=== PATIENT | male | born 1950 | race Caucasian/White ===

== ENCOUNTER 2019-07-08 16:35 | Inpatient (IN) | payer MEDICARE, SELFPAY ==
[2019-07-08 16:37] VITALS: PULSE 65; RESP 18; TEMP 36.9; O2SAT 95; BMI 22.4
--- NOTE | 2019-07-08 17:30 | CTR_ITS ---
PROCEDURE INFORMATION: Exam: CT Abdomen And Pelvis With Contrast Exam date and time: 07/08/2019 5:54 PM Age: 68 years old Clinical indication: Bloating and nausea and vomiting; Abdominal pain; Generalized; Additional info: Upper abdominal pain TECHNIQUE: Imaging protocol: Computed tomography of the abdomen and pelvis with intravenous contrast. Total DLP: 5338.96 mGy-cm Radiation optimization: All CT scans at this facility use at least one of these dose optimization techniques: automated exposure control; mA and/or kV adjustment per patient size (includes targeted exams where dose is matched to clinical indication); or iterative reconstruction. Contrast material: OMNI 300; Contrast volume: 95 ml; Contrast route: IV; COMPARISON: No relevant prior studies available. FINDINGS: Lungs: Nonspecific bibasilar ground-glass opacity is present, consistent with atelectasis, edema, or early pneumonia. Mediastinum: A small hiatal hernia is present. Liver: There is a diffuse decrease in hepatic parenchymal density, consistent with fatty infiltration. Gallbladder and bile ducts: Normal. No calcified stones. No ductal dilation. Pancreas: There is moderate peripancreatic inflammatory stranding and fluid, consistent with moderate acute pancreatitis. There is abundant peripancreatic fluid in edema but no localized fluid collection or pseudocyst. No evidence of pancreatic necrosis. Spleen: Normal. No splenomegaly. Adrenals: Normal. No mass. Kidneys and ureters: There is a 5.3 cm simple cyst in the left kidney. There are multiple renal hypodensities that cannot be further characterized on the current examination. There is no evidence of hydronephrosis. There is no evidence of renal calcifications. Stomach and bowel: Unremarkable. No obstruction. No mucosal thickening. Appendix: A normal appendix is identified. Intraperitoneal space: Unremarkable. No free air. No significant fluid collection. Vasculature: There are numerous benign phleboliths in the pelvis. Lymph nodes: Unremarkable.No enlarged lymph nodes. Bladder: There is nonspecific bladder wall thickening. This may be related to incomplete distention. Reproductive: The prostate demonstrates moderate nonspecific enlargement. The seminal vesicles are normal. Bones/joints: There are moderate degenerative changes in the spine. There is disc space narrowing with a vacuum disc at L5-S1. Soft tissues: There is a fat-containing umbilical hernia. CT/CT abdomen pelvis w con* [id number] IMPRESSION: 1. Nonspecific bibasilar ground-glass opacity is present, consistent with atelectasis, edema, or early pneumonia. 2. There is moderate peripancreatic inflammatory stranding and fluid, consistent with moderate acute pancreatitis. No pseudocyst. 3. There is a 5.3 cm simple cyst left kidney. No follow-up is necessary. COMMENTS: Consistent with the [employer]'s Incidental Findings Committee white paper (J Am Rita Radiol 2018): Any incidental cystic renal lesion classified in this report as too small to characterize or simple appearing is likely a benign cyst. No follow-up imaging is recommended for these lesions per consensus recommendations based on imaging criteria. Radiation Dose CTDIVOL = (mGy): DLP = 5338.96 (mGy-cm)
[2019-07-08 17:36] LABS: Basophils # 0.1 10^3/uL (0.0-0.1); Basophils % 0.3 %; Hematocrit 47.6 % (42.0-52.0); Hemoglobin 16.6 g/dL (11.7-16.6); Lymphocytes # 0.7 10^3/uL (0.8-4.8); Lymphocytes % 3.5 %; Mean Corpuscular HGB Conc 34.9 g/dL (30.0-36.0); Mean Corpuscular Hemoglobin 34.7 pg (28.0-34.0); Mean Corpuscular Volume 99.6 fL (80-94); Mean Platelet Volume 9.9 fL (7.4-10.4); Monocytes # 1.9 10^3/uL (0.2-0.9); Monocytes % 10.2 %; Neutrophils # 15.9 10^3/uL (1.8-7.7); Neutrophils % 85.4 %; Nucleated Red Blood Cells % 0 %; Platelet Count 214 10^3/cmm (130-400); Red Blood Count 4.78 10^6/uL (4.1-5.3); Red Cell Distribution Width 14.2 % (12.1-15.1); White Blood Count 18.6 10^3/uL (4.0-10.0)
--- NOTE | 2019-07-08 17:38 | W.ED.ABDPA2 ---
Documented by User: HARPER Aquino 07/08/19 20:45 HPI - Abdominal Pain General: Chief Complaint: Abdominal Pain Stated Complaint: abd pain/ back pain Time Seen by Provider: 07/08/19 17:04 Source: patient Mode of arrival: ambulatory Limitations: no limitations History of Present Illness: HPI narrative: Patient is a 68-year-old male who presents to ED today with complaints of upper abdominal pain. Patient tells me he has had intermittent chronic abdominal pains over the past several years but nothing has been this severe. He reports his pain is accompanied by nausea and dry heaving. He states pain seems to radiate into his back however also suffers from chronic back pain so is not sure if the abdominal pain is just exacerbating his chronic back pain. Patient reports normal bowel movements. Reports urinating normally. He has not been running fevers. Patient denies marijuana use. He does report chronic daily alcohol use and reports he normally consumes a pint of alcohol daily. MD elicited complaint: abdominal pain Pertinent past history: none Onset (ago): hour(s) Pain Consistency: constant Location: Epigastric and LUQ Severity: moderate Quality: aching and sharp Radiation: back Migration to: no migration Exacerbating factors: eating Relieving factors: nothing Associated Symptoms: Reports no associated symptoms, bloating and nausea; Denies change in bowel habits, change in stool character, chills, coffee ground emesis, diarrhea, dysuria, fever(s), heartburn, hematochezia, hematemesis, syncope and vomiting Review of Systems Const: Denies: fever, chills, body aches, change in appetite, change in weight, fatigue or malaise Eyes: Denies: change in vision or blurry vision ENMT: Denies: throat pain, enlarged tonsils or painful swallowing Card: Denies: chest pain, palpitations, irregular heart rhythm, edema, swelling of feet/ankles, lightheadedness, syncope, pre-syncope or shortness of breath when lying down Resp: Denies: shortness of breath, productive cough, coughing up blood or chest congestion GI: Reports: abdominal pain, nausea and bloating; Denies: vomiting, vomiting blood, coffee grounds in vomit, heartburn/indigestion, diarrhea, change in bowel habits, change in stool character, blood in stool, white/light colored stool or fatty stool : Denies: flank pain, difficulty urinating, painful urination, urinary frequency or urinary urgency Musc: Reports: back pain (chronic ); Denies: neck pain, extremity pain, extremity swelling, joint pain or joint swelling Skin/Breast: Denies: rash Neuro: Denies: headache, numbness in extremities, weakness in extremities or changes in sensation PFSH ED PFSH: Medical History Alcohol abuse Bipolar 1 disorder Insomnia Smoker Surgical History No pertinent past surgical history Family History (Updated 07/08/19 @ 20:16 by John De Jesus MD) Denies family history of Diabetes Clotting disorder Dementia Chronic kidney disease (CKD) Social History (Updated 07/08/19 @ 20:17 by John De Jesus MD) Smoking and tobacco status: current every day smoker cigarettes Packs smoked per day: 3 Years cigarettes smoked: 45 Alcohol intake: current Alcohol use comment: 1 pint of whiskey every day Substance/Drug Use: never Household members: spouse Housing: House Marital status: Current occupation: On disability because of lower back pain and scoliosis Physical Exam Const: COMMON NORMALS: no apparent distress, average body habitus, oriented x3, no limitations, healthy appearing, alert and well nourished Chest: COMMONS NORMALS: inspection of chest normal and palpation of chest normal Resp: COMMON NORMALS: normal respiratory effort and clear to auscultation bilaterally AUSCULTATION: clear to auscultation bilaterally Cardio: COMMON NORMALS: regular rate and regular rhythm RATE: regular rate RHYTHM: regular rhythm GI: COMMON NORMALS: normal to inspection, nondistended, normoactive bowel sounds, soft to palpation, no hepatosplenomegaly and no masses PALPATION: Yes soft, Yes tender (epigastric ) Details: LUQ and Yes no hepatosplenomegaly : COMMON NORMALS: Yes no CVA tenderness BLADDER/KIDNEY EXAM: Yes no CVA tenderness Back/Pelvis: COMMON NORMALS: no CVA tenderness OTHER: TTP mid thoracic and upper lumbar spine-pt states this is chronic Extremity: COMMON NORMALS: normal to inspection Neuro: COMMON NORMALS: oriented x3 SENSORIUM/ORIENTATION: Yes alert Skin: COMMON NORMALS: no rashes or lesions noted GENERAL SKIN EXAM: no rashes or lesions noted Course Vital Signs: Vital signs: Vital Signs Temperature 98.4 F 07/08/19 16:37 Pulse Rate 70 07/08/19 21:28 Respiratory Rate 18 07/08/19 21:28 Blood Pressure 209/95 07/08/19 21:07 Pulse Oximetry 95 07/08/19 21:28 MDM - Abdominal Pain MDM Narrative: Medical decision making narrative: Patient with acute pancreatitis with a lipase of 2280. His pain and nausea has not been controlled here with multiple doses of IV narcotic pain medications. Patient is an every day drinker and if he goes home with instructions not to drink alcohol I fear he may have DT symptoms. In addition patient needs more adequate pain control than what could be provided at home. Spoke to Dr. Garcia who will also evaluate patient and speak to hospitalist for admission. Lab Data: Labs: Lab Results 07/08/19 07/08/19 07/08/19 Range/Units 17:23 17:23 17:23 WBC 18.6 H (4.0-10.0) 10^3/ uL RBC 4.78 (4.1-5.3) 10^6/u L Hgb 16.6 (11.7-16.6) g/dL Hct 47.6 (42.0-52.0) % MCV 99.6 H (80-94) fL MCH 34.7 H (28.0-34.0) pg MCHC 34.9 (30.0-36.0) g/dL RDW 14.2 (12.1-15.1) % Plt Count 214 (130-400) 10^3/c mm MPV 9.9 (7.4-10.4) fL Neut % (Auto) 85.4 % Lymph % (Auto) 3.5 % [place] % (Auto) 10.2 % Eos % (Auto) 0.0 % Baso % (Auto) 0.3 % Neut # (Auto) 15.9 H (1.8-7.7) 10^3/u L Lymph # (Auto) 0.7 L (0.8-4.8) 10^3/u L [place] # (Auto) 1.9 H (0.2-0.9) 10^3/u L Eos # (Auto) 0.0 (0.0-0.8) 10^3/u L Baso # (Auto) 0.1 (0.0-0.1) 10^3/u L Nucleated RBC % (a uto) 0 % Nucleated RBCs # 0.0 /100WBC Sodium 138 (136-145) mmol/L Potassium 4.2 (3.5-5.1) mmol/L Chloride 98 (98-107) mmol/L Carbon Dioxide 22 (22-29) mmol/L Anion Gap 22.2 H (5-19) BUN 17 (8-23) mg/dL Creatinine 0.7 (0.7-1.2) mg/dL GFR Calculation 112.8 (90-130) mL/min Glucose 104 (65-115) mg/dL Calculated Osmolal ity 283 L (285-295) mOsm/k g Calcium 10.1 (8.5-10.5) mg/dL Total Bilirubin 0.9 (0.15-1.2) mg/dL AST 28 (0-40) U/L ALT 25 (0-41) U/L Alkaline Phosphata se 79 (40-130) IU/L Total Protein 7.3 (6.6-8.7) g/dL Albumin 4.3 (3.5-5.2) g/dL Globulin 3.0 (1.3-4.6) g/dL Lipase 2280 H (13-60) U/L Urine Color (Yellow) Urine Appearance (CLEAR) Urine pH (5-7) Ur Specific Gravit y (1.005-1.030) Urine Protein (Negative) Urine Glucose (UA) (Normal) Urine Ketones (Negative) Urine Blood (Negative) Urine Nitrate (Negative) Urine Bilirubin (NEGATIVE) Urine Urobilinogen (Negative) mg/dL Ur Leukocyte Clarisa ase (Negative) Urine RBC (0-2) /hpf Urine WBC (0-5) /hpf Ur Squamous Epith Cells (0-5) Urine Bacteria (NONE) Urine Mucus Urine Opiates Scre en (Negative) ng/mL Ur Barbiturates Sc reen (Negative) ng/mL Ur Phencyclidine S crn (Negative) ng/mL Ur Amphetamines Sc reen (Negative) ng/mL U Benzodiazepines Scrn (Negative) ng/mL Urine Cocaine Scre en (Negative) ng/mL U Marijuana (THC) Screen (Negative) ng/mL Ethyl Alcohol < 10 (0-10) mg/dL 07/08/19 07/08/19 Range/Units 18:20 18:20 WBC (4.0-10.0) 10^3/ uL RBC (4.1-5.3) 10^6/u L Hgb (11.7-16.6) g/dL Hct (42.0-52.0) % MCV (80-94) fL MCH (28.0-34.0) pg MCHC (30.0-36.0) g/dL RDW (12.1-15.1) % Plt Count (130-400) 10^3/c mm MPV (7.4-10.4) fL Neut % (Auto) % Lymph % (Auto) % [place] % (Auto) % Eos % (Auto) % Baso % (Auto) % Neut # (Auto) (1.8-7.7) 10^3/u L Lymph # (Auto) (0.8-4.8) 10^3/u L [place] # (Auto) (0.2-0.9) 10^3/u L Eos # (Auto) (0.0-0.8) 10^3/u L Baso # (Auto) (0.0-0.1) 10^3/u L Nucleated RBC % (a uto) % Nucleated RBCs # /100WBC Sodium (136-145) mmol/L Potassium (3.5-5.1) mmol/L Chloride (98-107) mmol/L Carbon Dioxide (22-29) mmol/L Anion Gap (5-19) BUN (8-23) mg/dL Creatinine (0.7-1.2) mg/dL GFR Calculation (90-130) mL/min Glucose (65-115) mg/dL Calculated Osmolal ity (285-295) mOsm/k g Calcium (8.5-10.5) mg/dL Total Bilirubin (0.15-1.2) mg/dL AST (0-40) U/L ALT (0-41) U/L Alkaline Phosphata se (40-130) IU/L Total Protein (6.6-8.7) g/dL Albumin (3.5-5.2) g/dL Globulin (1.3-4.6) g/dL Lipase (13-60) U/L Urine Color Dark yellow (Yellow) Urine Appearance Clear (CLEAR) Urine pH 5 (5-7) Ur Specific Gravit y 1.020 (1.005-1.030) Urine Protein 1+ H (Negative) Urine Glucose (UA) Norm (Normal) Urine Ketones 2+ H (Negative) Urine Blood 2+ H (Negative) Urine Nitrate Negative (Negative) Urine Bilirubin Neg (NEGATIVE) Urine Urobilinogen Norm (Negative) mg/dL Ur Leukocyte Clarisa ase Negative (Negative) Urine RBC 0-4 H (0-2) /hpf Urine WBC None (0-5) /hpf Ur Squamous Epith Cells 0-4 H (0-5) Urine Bacteria Trace (NONE) Urine Mucus 3+ Urine Opiates Scre en Negative (Negative) ng/mL Ur Barbiturates Sc reen Negative (Negative) ng/mL Ur Phencyclidine S crn Negative (Negative) ng/mL Ur Amphetamines Sc reen Negative (Negative) ng/mL U Benzodiazepines Scrn Negative (Negative) ng/mL Urine Cocaine Scre en Negative (Negative) ng/mL U Marijuana (THC) Screen Negative (Negative) ng/mL Ethyl Alcohol (0-10) mg/dL Imaging Data ^: CT Abd/Pel: Radiologist's impression: [place] [address] CT Scan Report Signed Patient: Channing Venegas Unit #: [id number] : 1950 Age/Sex: 68 / M ADM Date: 07/08/19 Loc: ER Room/Bed: Attending Dr: Ordering Provider/Ordering MD: Brianna Schmidt Date of Service: 07/08/19 Procedure(s): CT abdomen pelvis w con* [id number] Accession Number(s): [id number] Report Number: [id number] PROCEDURE INFORMATION: Exam: CT Abdomen And Pelvis With Contrast Exam date and time: 07/08/2019 5:54 PM Age: 68 years old Clinical indication: Bloating and nausea and vomiting; Abdominal pain; Generalized; Additional info: Upper abdominal pain TECHNIQUE: Imaging protocol: Computed tomography of the abdomen and pelvis with intravenous contrast. Total DLP: 5338.96 mGy-cm Radiation optimization: All CT scans at this facility use at least one of these dose optimization techniques: automated exposure control; mA and/or kV adjustment per patient size (includes targeted exams where dose is matched to clinical indication); or iterative reconstruction. Contrast material: OMNI 300; Contrast volume: 95 ml; Contrast route: IV; COMPARISON: No relevant prior studies available. FINDINGS: Lungs: Nonspecific bibasilar ground-glass opacity is present, consistent with atelectasis, edema, or early pneumonia. Mediastinum: A small hiatal hernia is present. Liver: There is a diffuse decrease in hepatic parenchymal density, consistent with fatty infiltration. Gallbladder and bile ducts: Normal. No calcified stones. No ductal dilation. Pancreas: There is moderate peripancreatic inflammatory stranding and fluid, consistent with moderate acute pancreatitis. There is abundant peripancreatic fluid in edema but no localized fluid collection or pseudocyst. No evidence of pancreatic necrosis. Spleen: Normal. No splenomegaly. Adrenals: Normal. No mass. Kidneys and ureters: There is a 5.3 cm simple cyst in the left kidney. There are multiple renal hypodensities that cannot be further characterized on the current examination. There is no evidence of hydronephrosis. There is no evidence of renal calcifications. Stomach and bowel: Unremarkable. No obstruction. No mucosal thickening. Appendix: A normal appendix is identified. Intraperitoneal space: Unremarkable. No free air. No significant fluid collection. Vasculature: There are numerous benign phleboliths in the pelvis. Lymph nodes: Unremarkable.No enlarged lymph nodes. Bladder: There is nonspecific bladder wall thickening. This may be related to incomplete distention. Reproductive: The prostate demonstrates moderate nonspecific enlargement. The seminal vesicles are normal. Bones/joints: There are moderate degenerative changes in the spine. There is disc space narrowing with a vacuum disc at L5-S1. Soft tissues: There is a fat-containing umbilical hernia. CT/CT abdomen pelvis w con* [id number] IMPRESSION: 1. Nonspecific bibasilar ground-glass opacity is present, consistent with atelectasis, edema, or early pneumonia. 2. There is moderate peripancreatic inflammatory stranding and fluid, consistent with moderate acute pancreatitis. No pseudocyst. 3. There is a 5.3 cm simple cyst left kidney. No follow-up is necessary. COMMENTS: Consistent with the [employer]'s Incidental Findings Committee white paper (J Am Rita Radiol 2018): Any incidental cystic renal lesion classified in this report as too small to characterize or simple appearing is likely a benign cyst. No follow-up imaging is recommended for these lesions per consensus recommendations based on imaging criteria. Radiation Dose CTDIVOL = (mGy): DLP = 5338.96 (mGy-cm) Dictated By: Janet Powers Signed By: Janet Powers Signed Date/Time: 07/08/191921 DD/ 19 Discharge Plan Discharge Patient Disposition: Admitted As Inpatient Admit Provider: John De Jesus Clinical Impression: Acute pancreatitis Qualifiers: Pancreatitis type: alcohol induced Acute pancreatitis complication: no infection or necrosis Qualified Code(s): K85.20 - Alcohol induced acute pancreatitis without necrosis or infection Condition: Stable Discharge Date/Time: 07/08/19 21:44 Sign Out Sign Out Data: Patient Sign Out occurred on 07/08/19 at 19:45. Patient's care was discussed, and care was transferred from to Arlet Garcia. Coding Level of Care Code ED Color Card Maker for Chg Fwd Exam Comprehensive Documented by User: Arlet Garcia 07/08/19 21:46 HPI - Abdominal Pain General: Chief Complaint: Abdominal Pain Stated Complaint: abd pain/ back pain Time Seen by Provider: 07/08/19 17:04 PFSH ED PFSH: Medical History Alcohol abuse Bipolar 1 disorder Insomnia Smoker Surgical History No pertinent past surgical history Family History (Updated 07/08/19 @ 20:16 by John De Jesus MD) Denies family history of Diabetes Clotting disorder Dementia Chronic kidney disease (CKD) Social History (Updated 07/08/19 @ 20:17 by John De Jesus MD) Smoking and tobacco status: current every day smoker cigarettes Packs smoked per day: 3 Years cigarettes smoked: 45 Alcohol intake: current Alcohol use comment: 1 pint of whiskey every day Substance/Drug Use: never Household members: spouse Housing: House Marital status: Current occupation: On disability because of lower back pain and scoliosis Course Vital Signs: Vital signs: Vital Signs Temperature 98.4 F 07/08/19 16:37 Pulse Rate 70 07/08/19 21:28 Respiratory Rate 18 07/08/19 21:28 Blood Pressure 209/95 07/08/19 21:07 Pulse Oximetry 95 07/08/19 21:28 MDM - Abdominal Pain MDM Narrative: Medical decision making narrative: The patient was seen and examined by me. I agree with Brianna Schmidt's assessment and plan. I reviewed the case in full with Dr. Nation and he is agreeable to admit the patient. Currently the patient's pain is not controlled but it is tolerable. I see no evidence of biliary disease as a cause for his pain. This is likely secondary to alcoholic consumption. Patient agrees he will need to come in as he cannot tolerate his pain at home. Lab Data: Attestation: I reviewed the patient's lab results. Labs: Lab Results 07/08/19 07/08/19 07/08/19 Range/Units 17:23 17:23 17:23 WBC 18.6 H (4.0-10.0) 10^3/ uL RBC 4.78 (4.1-5.3) 10^6/u L Hgb 16.6 (11.7-16.6) g/dL Hct 47.6 (42.0-52.0) % MCV 99.6 H (80-94) fL MCH 34.7 H (28.0-34.0) pg MCHC 34.9 (30.0-36.0) g/dL RDW 14.2 (12.1-15.1) % Plt Count 214 (130-400) 10^3/c mm MPV 9.9 (7.4-10.4) fL Neut % (Auto) 85.4 % Lymph % (Auto) 3.5 % [place] % (Auto) 10.2 % Eos % (Auto) 0.0 % Baso % (Auto) 0.3 % Neut # (Auto) 15.9 H (1.8-7.7) 10^3/u L Lymph # (Auto) 0.7 L (0.8-4.8) 10^3/u L [place] # (Auto) 1.9 H (0.2-0.9) 10^3/u L Eos # (Auto) 0.0 (0.0-0.8) 10^3/u L Baso # (Auto) 0.1 (0.0-0.1) 10^3/u L Nucleated RBC % (a uto) 0 % Nucleated RBCs # 0.0 /100WBC Sodium 138 (136-145) mmol/L Potassium 4.2 (3.5-5.1) mmol/L Chloride 98 (98-107) mmol/L Carbon Dioxide 22 (22-29) mmol/L Anion Gap 22.2 H (5-19) BUN 17 (8-23) mg/dL Creatinine 0.7 (0.7-1.2) mg/dL GFR Calculation 112.8 (90-130) mL/min Glucose 104 (65-115) mg/dL Calculated Osmolal ity 283 L (285-295) mOsm/k g Calcium 10.1 (8.5-10.5) mg/dL Total Bilirubin 0.9 (0.15-1.2) mg/dL AST 28 (0-40) U/L ALT 25 (0-41) U/L Alkaline Phosphata se 79 (40-130) IU/L Total Protein 7.3 (6.6-8.7) g/dL Albumin 4.3 (3.5-5.2) g/dL Globulin 3.0 (1.3-4.6) g/dL Lipase 2280 H (13-60) U/L Urine Color (Yellow) Urine Appearance (CLEAR) Urine pH (5-7) Ur Specific Gravit y (1.005-1.030) Urine Protein (Negative) Urine Glucose (UA) (Normal) Urine Ketones (Negative) Urine Blood (Negative) Urine Nitrate (Negative) Urine Bilirubin (NEGATIVE) Urine Urobilinogen (Negative) mg/dL Ur Leukocyte Clarisa ase (Negative) Urine RBC (0-2) /hpf Urine WBC (0-5) /hpf Ur Squamous Epith Cells (0-5) Urine Bacteria (NONE) Urine Mucus Urine Opiates Scre en (Negative) ng/mL Ur Barbiturates Sc reen (Negative) ng/mL Ur Phencyclidine S crn (Negative) ng/mL Ur Amphetamines Sc reen (Negative) ng/mL U Benzodiazepines Scrn (Negative) ng/mL Urine Cocaine Scre en (Negative) ng/mL U Marijuana (THC) Screen (Negative) ng/mL Ethyl Alcohol < 10 (0-10) mg/dL 07/08/19 07/08/19 Range/Units 18:20 18:20 WBC (4.0-10.0) 10^3/ uL RBC (4.1-5.3) 10^6/u L Hgb (11.7-16.6) g/dL Hct (42.0-52.0) % MCV (80-94) fL MCH (28.0-34.0) pg MCHC (30.0-36.0) g/dL RDW (12.1-15.1) % Plt Count (130-400) 10^3/c mm MPV (7.4-10.4) fL Neut % (Auto) % Lymph % (Auto) % [place] % (Auto) % Eos % (Auto) % Baso % (Auto) % Neut # (Auto) (1.8-7.7) 10^3/u L Lymph # (Auto) (0.8-4.8) 10^3/u L [place] # (Auto) (0.2-0.9) 10^3/u L Eos # (Auto) (0.0-0.8) 10^3/u L Baso # (Auto) (0.0-0.1) 10^3/u L Nucleated RBC % (a uto) % Nucleated RBCs # /100WBC Sodium (136-145) mmol/L Potassium (3.5-5.1) mmol/L Chloride (98-107) mmol/L Carbon Dioxide (22-29) mmol/L Anion Gap (5-19) BUN (8-23) mg/dL Creatinine (0.7-1.2) mg/dL GFR Calculation (90-130) mL/min Glucose (65-115) mg/dL Calculated Osmolal ity (285-295) mOsm/k g Calcium (8.5-10.5) mg/dL Total Bilirubin (0.15-1.2) mg/dL AST (0-40) U/L ALT (0-41) U/L Alkaline Phosphata se (40-130) IU/L Total Protein (6.6-8.7) g/dL Albumin (3.5-5.2) g/dL Globulin (1.3-4.6) g/dL Lipase (13-60) U/L Urine Color Dark yellow (Yellow) Urine Appearance Clear (CLEAR) Urine pH 5 (5-7) Ur Specific Gravit y 1.020 (1.005-1.030) Urine Protein 1+ H (Negative) Urine Glucose (UA) Norm (Normal) Urine Ketones 2+ H (Negative) Urine Blood 2+ H (Negative) Urine Nitrate Negative (Negative) Urine Bilirubin Neg (NEGATIVE) Urine Urobilinogen Norm (Negative) mg/dL Ur Leukocyte Clarisa ase Negative (Negative) Urine RBC 0-4 H (0-2) /hpf Urine WBC None (0-5) /hpf Ur Squamous Epith Cells 0-4 H (0-5) Urine Bacteria Trace (NONE) Urine Mucus 3+ Urine Opiates Scre en Negative (Negative) ng/mL Ur Barbiturates Sc reen Negative (Negative) ng/mL Ur Phencyclidine S crn Negative (Negative) ng/mL Ur Amphetamines Sc reen Negative (Negative) ng/mL U Benzodiazepines Scrn Negative (Negative) ng/mL Urine Cocaine Scre en Negative (Negative) ng/mL U Marijuana (THC) Screen Negative (Negative) ng/mL Ethyl Alcohol (0-10) mg/dL Discharge Plan Discharge Patient Disposition: Admitted As Inpatient Admit Provider: John De Jesus Clinical Impression: Acute pancreatitis Qualifiers: Pancreatitis type: alcohol induced Acute pancreatitis complication: no infection or necrosis Qualified Code(s): K85.20 - Alcohol induced acute pancreatitis without necrosis or infection Condition: Stable Discharge Date/Time: 07/08/19 21:44 Sign Out Sign Out Data: Patient Sign Out occurred on 07/08/19 at 19:45. Patient's care was discussed, and care was transferred from to Arlet Alison [facility]. Coding Level of Care Code ED Color Card Maker for Chey Fwd Exam Comprehensive
[2019-07-08 17:47] LABS: Alanine Aminotransferase 25 U/L (0-41); Albumin Level 4.3 g/dL (3.5-5.2); Alkaline Phosphatase 79 IU/L (40-130); Anion Gap 22.2 (5-19); Aspartate Amino Transferase 28 U/L (0-40); Blood Urea Nitrogen 17 mg/dL (8-23); Calcium 10.1 mg/dL (8.5-10.5); Carbon Dioxide 22 mmol/L (22-29); Chloride 98 mmol/L (98-107); Glomerular Filtration Rate 112.8 mL/min (90-130); Glucose 104 mg/dL (65-115); Osmolality Calculated 283 mOsm/kg (285-295); Potassium 4.2 mmol/L (3.5-5.1); Sodium 138 mmol/L (136-145); Total Bilirubin 0.9 mg/dL (0.15-1.2); Total Protein 7.3 g/dL (6.6-8.7)
[2019-07-08 17:57] LABS: Lipase 2280 U/L (13-60)
[2019-07-08] MEDS: lidocaine 2% viscous 15 ML, aluminum-mag hydrox-simethicon 30 ML, sucralfate oral liq 1 GM PO (17:57)
[2019-07-08] MEDS: metoclopramide 5 mg/mL SDV 2 mL 10 MG IVP (17:57)
[2019-07-08] MEDS: sodium chloride 0.9% 1,000 ML 999 ML IV (17:58)
[2019-07-08 18:19] VITALS: RESP 17; O2SAT 96
[2019-07-08] MEDS: morphine 4 mg/mL SDV 1 mL IVP ×2 (18:19→20:33)
[2019-07-08 18:43] LABS: Urine Appearance Clear (CLEAR); Urine Color Dark Yellow (Yellow)
[2019-07-08 18:44] LABS: Add Urine Microscopic? YES; Bilirubin Urine Neg (NEGATIVE); Blood Urine 2+ (Negative); Glucose Urine UA Norm (Normal); Ketones Urine 2+ (Negative); Leukocyte Esterase Urine Negative (Negative); Nitrate Urine Negative (Negative); Protein Urine 1+ (Negative); Urobilinogen Urine Norm (Negative); pH Urine 5 (5-7)
[2019-07-08] MEDS: iohexol 300 mg/mL 100 mL Btl 95 ML IV (18:48)
[2019-07-08 18:53] LABS: Add Urine Culture? No; Bacteria Urine TRACE; Mucus Urine 3+; RBC Urine 0-4 /hpf (0-2); Squamous Epithelial Cell Urine 0-4 (0-5)
[2019-07-08 19:40] LABS: Alcohol Level < 10 mg/dL (0-10)
--- NOTE | 2019-07-08 19:43 | PM.HP ---
Providers/Chief Complaint Chief Complaint: abd pain/ back pain History of Present Illness Channing Venegas is a 68 year old male with no previous significant past medical history came in with chief complaint of epigastric abdominal pain. Patient is stating that he was in usual state of health i.e. drinks 1 pint of whiskey every day, smokes 2 to 3 packs every day, independent for daily activities, has not seen a PCP in a long time, he started experiencing abdominal bloating 2 to 3 weeks ago which are associated with some nagging sensation in his belly, he did not experience any fever, nausea, vomiting, until last night when he started experiencing excruciating 10/10 sharp epigastric pain radiating towards his back, it was associated with some nausea, he is denying vomiting, diarrhea but is endorsing dark tarry stool. He is denying chest pain, insect bites, electronic cigarettes, marijuana, home medication use, he tried [id number] Kaopectate. Diagnostics in ER revealed acute pancreatitis without any signs of sepsis or necrosis Alcohol level undetectable Review of Systems Const: Reports: change in appetite; Denies: fever, chills, body aches or fatigue Eyes: Denies: change in vision or blurry vision ENMT: Denies: throat pain or uvular edema Card: Denies: chest pain or palpitations Resp: Denies: shortness of breath or non-productive cough GI: Reports: abdominal pain and nausea; Denies: vomiting, difficulty swallowing, feeling full early, diarrhea or change in bowel habits : Denies: flank pain, difficulty urinating or urinary frequency Musc: Denies: neck pain or back pain Skin/Breast: Denies: rash or itching Neuro: Denies: headache or numbness in extremities Psych: Reports: anxiety and depression Endo: Denies: excessive urination Josias/Lymph: Denies: easy bruising All/Imm: Denies: hives Medications/Allergies Home Medications Medication Instructions Recorded Confirmed Last Taken Type bismuth subsalicylate [Kaopectate See Rx Instructions .ROUTE .COMPLEX 07/08/19 07/08/19 Unknown History Ex Str (bismuth ss)] pediatric multivitamin 1 tab PO DAILY 07/08/19 07/08/19 07/07/19 History [Flintstones Multivitamin] Allergies Allergy/AdvReac Type Severity Reaction Status Date / Time Penicillins Allergy Unknown Verified 07/08/19 16:40 PFSH Acute PFSH: Medical History Alcohol abuse Bipolar 1 disorder Insomnia Smoker Surgical History No pertinent past surgical history Family History (Updated 07/08/19 @ 20:16 by John De Jesus MD) Denies family history of Diabetes Clotting disorder Dementia Chronic kidney disease (CKD) Social History (Updated 07/08/19 @ 20:17 by John De Jesus MD) Smoking and tobacco status: current every day smoker cigarettes Packs smoked per day: 3 Years cigarettes smoked: 45 Alcohol intake: current Alcohol use comment: 1 pint of whiskey every day Substance/Drug Use: never Household members: spouse Housing: House Marital status: Current occupation: On disability because of lower back pain and scoliosis Vitals/I&O/Wt Last Vital Signs Temp 98.4 F 07/08/19 16:37 Pulse 65 07/08/19 16:37 Resp 17 07/08/19 18:19 Pulse Ox 96 07/08/19 18:19 Weight last 48 hrs Weight 70.76 kg Physical Exam Narrative: EXAM NARRATIVE: This is a very pleasant middle-age man EOMI, PERRLA No signs of alcohol withdrawal S1, S2 no signs of sinus tachycardia heart failure Abdomen soft, mild epigastric tenderness on deep palpation, bowel sounds sluggish, no signs of retroperitoneal hematoma Awake alert oriented x3, GCS 15, Lungs are clear to auscultation with mild rhonchi at the bases, no active respiratory stress Digital clubbing positive No signs of ischemic skin, gangrene or ulcer Appropriate mood and affect Data : 07/08/19 17:23 07/08/19 17:23 A&P Assessment and plan (1) Acute pancreatitis: Status: Acute Qualifiers: Acute pancreatitis complication: no infection or necrosis Pancreatitis type: alcohol induced Qualified Code(s): K85.20 - Alcohol induced acute pancreatitis without necrosis or infection Code(s): K85.90 - Acute pancreatitis without necrosis or infection, unspecified (2) Alcohol abuse: Status: Acute Code(s): F10.10 - Alcohol abuse, uncomplicated (3) Smoker: Status: Acute Code(s): F17.200 - Nicotine dependence, unspecified, uncomplicated Additional A&P Information Alcohol induced acute pancreatitis High lipase level, CT scan is showing peripancreatic stranding No signs of necrosis, no sepsis N.p.o. with ice chips D5 LR at 75 mL/h No electrolyte normality seen, Monitor for development of ARDS considering bilateral groundglass mild opacities at the lung bases evident on CT scan, patient is saturating well on room air, Morphine for analgesia, patient is stating that he had multiple episodes of nausea and vomiting when he use opioids last time, I will monitor his signs and symptoms and use alternative options if I have to Alcohol abuse: CIWA protocol, thiamine and folic acid Active smoker Smokes 2 to 3 packs a day Spent 2 to 3 minutes on benefits of smoking cessation and complications such as pancreatic cancer, bladder cancer, lung cancer, COPD discussed, patient voiced understanding, he will contemplate about quitting smoking Bipolar disorder Not on any antidepressants I will start low-dose escitalopram once he is able to tolerate diet Patient is currently attributing his insomnia and bipolar disorder to use of his alcohol and excessive smoking Full code He will need a PCP appointment He has not seen a PCP in a long time, I will check his triglyceride levels, A1c and lipid panel Attestations Medical Necessity Statement*: Admitting for management of pancreatitis, needs more than 2 days in the hospital for resolution of pancreatitis and monitoring for development of ARDS Time Spent in Patient Care: 45 Coding Level of Care Code 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
[2019-07-08] MEDS: ondansetron 2 mg/ML SDV 2 mL 4 MG IVP ×2 (20:32→23:34)
[2019-07-08 20:33] VITALS: RESP 18; O2SAT 96
[2019-07-08 20:49] LABS: Amphetamines Screen Urine Negative (Negative); Barbiturates Screen Urine Negative (Negative); Benzodiazepines Screen Urine Negative (Negative); Cocaine Screen Urine Negative (Negative); Opiate Screen Urine Negative (Negative); PCP Screen Urine Negative (Negative); THC Screen Urine Negative (Negative)
[2019-07-08 21:07] VITALS: BP 209/95; PULSE 75; RESP 18; O2SAT 96
[2019-07-08 21:15] VITALS: RESP 17; O2SAT 98
[2019-07-08] MEDS: HYDROmorphone 1 mg/mL INJ 1 mL IVP (21:15)
[2019-07-08 21:28] VITALS: PULSE 70; RESP 18; O2SAT 95
[2019-07-08 22:29] LABS: Chol HDL Ratio 4.18 mg/dL (1.0-5.00); Cholesterol 230 mg/dL (0-200); HDL Cholesterol 55 mg/dL (60-100); LDL Cholesterol Calculated 156 mg/dL (50-129); Triglycerides 97 mg/dL (0-150); VLDL Cholestrol Calculation 19 mg/dL (0-30)
[2019-07-08 22:38] LABS: Estmated Average Glucose 108; Hemoglobin A1C 5.4 % (4.0-6.0); Hepatitis C Virus Antibody Non-Reactive (Nonreactive)
[2019-07-08] MEDS: LORazepam 2 mg/mL INJ 1 mL IM (23:33)
[2019-07-08] MEDS: enoxaparin 40 mg/0.4 mL Syringe SUBCUT (23:33)
[2019-07-09] VITALS (10 sets, daily range): BP systolic 132–190; BP diastolic 78–93; PULSE 66–103; RESP 16–20; TEMP 36.3–36.9; O2SAT 94–96
[2019-07-09] MEDS: dextrose 5%-lactated ringers 1,000 ML 75 ML IV ×2 (00:09→16:00)
[2019-07-09] MEDS: morphine 4 mg/mL SDV 1 mL IVP ×3 (00:19→15:33)
[2019-07-09] MEDS: ondansetron 2 mg/ML SDV 2 mL 4 MG IVP ×3 (05:31→17:17)
[2019-07-09 06:57] LABS: Basophils # 0.1 10^3/uL (0.0-0.1); Basophils % 0.4 %; Eosinophils % 0.1 %; Hematocrit 45.7 % (42.0-52.0); Hemoglobin 15.6 g/dL (11.7-16.6); Lymphocytes # 1.2 10^3/uL (0.8-4.8); Lymphocytes % 6.4 %; Mean Corpuscular HGB Conc 34.1 g/dL (30.0-36.0); Mean Corpuscular Hemoglobin 34.4 pg (28.0-34.0); Mean Corpuscular Volume 100.9 fL (80-94); Monocytes # 1.7 10^3/uL (0.2-0.9); Monocytes % 9.4 %; Neutrophils # 15.2 10^3/uL (1.8-7.7); Neutrophils % 83.3 %; Nucleated Red Blood Cells % 0 %; Platelet Count 153 10^3/cmm (130-400); Red Blood Count 4.53 10^6/uL (4.1-5.3); Red Cell Distribution Width 14.5 % (12.1-15.1); White Blood Count 18.2 10^3/uL (4.0-10.0)
[2019-07-09 07:15] LABS: Alanine Aminotransferase 20 U/L (0-41); Albumin Level 3.4 g/dL (3.5-5.2); Alkaline Phosphatase 70 IU/L (40-130); Anion Gap 17.3 (5-19); Blood Urea Nitrogen 16 mg/dL (8-23); Calcium 9.2 mg/dL (8.5-10.5); Carbon Dioxide 24 mmol/L (22-29); Chloride 101 mmol/L (98-107); Globulin 3.4 g/dL (1.3-4.6); Glomerular Filtration Rate 134.8 mL/min (90-130); Glucose 149 mg/dL (65-115); Osmolality Calculated 285 mOsm/kg (285-295); Potassium 4.3 mmol/L (3.5-5.1); Sodium 138 mmol/L (136-145); Total Bilirubin 0.6 mg/dL (0.15-1.2); Total Protein 6.8 g/dL (6.6-8.7)
[2019-07-09 07:21] LABS: Slide Review Slide Review Perform
[2019-07-09 07:25] LABS: Lipase 922 U/L (13-60)
[2019-07-09 07:27] LABS: Aspartate Amino Transferase 28 U/L (0-40)
[2019-07-09] MEDS: folic acid 1 mg Tablet PO (08:40)
[2019-07-09] MEDS: thiamine 100 mg Tablet PO (08:40)
[2019-07-09] MEDS: multivitamin therapeutic Tablet 1 TAB PO (08:40)
[2019-07-09] MEDS: pantoprazole 40 mg SDV IVP ×2 (10:42→20:58)
[2019-07-09 11:23] LABS: Triglycerides 132 mg/dL (0-150)
[2019-07-09 11:35] LABS: Influenza A by IFA Negative (Negative); Influenza B by IFA Negative (Negative)
--- NOTE | 2019-07-09 12:09 | PM.PN ---
Subjective Subjective: Interval history: Channing reports he is doing a little bit better. Abdominal pain is less. Still with nausea. He reports he is not going to drink anymore. Medications: Reviewed: Yes Vitals/I&O/Wt Last Vital Signs Temp 98.4 F 07/09/19 11:31 Pulse 70 07/09/19 11:31 Resp 16 07/09/19 11:31 BP 166/80 07/09/19 11:31 Pulse Ox 94 07/09/19 11:31 07/08/19 07/09/19 07/09/19 22:59 06:59 14:59 Intake Total 50 / 50 Balance 50 / 50 Weight last 48 hrs Weight 70.76 kg Physical Exam Narrative: EXAM NARRATIVE: General exam is no apparent distress Cardiovascular regular rate and rhythm without murmur Lungs clear Abdomen is soft, tenderness is in the epigastric area. Positive bowel sounds. No obvious organomegaly Extremities no cyanosis clubbing or edema Data : 07/09/19 06:44 07/09/19 06:44 A&P Assessment and plan (1) Acute pancreatitis: Significant episode of acute pancreatitis. Lipase has improved to 922. Patient feels symptomatically slightly better. CT scan demonstrated stranding near the pancreas We will check a triglyceride level Add Protonix 40 mg twice daily secondary to abdominal discomfort Increase fluids Status: Acute Qualifiers: Acute pancreatitis complication: no infection or necrosis Pancreatitis type: alcohol induced Qualified Code(s): K85.20 - Alcohol induced acute pancreatitis without necrosis or infection Code(s): K85.90 - Acute pancreatitis without necrosis or infection, unspecified (2) Alcohol abuse: Counseled on abstinence Status: Acute Code(s): F10.10 - Alcohol abuse, uncomplicated (3) Smoker: Status: Acute Code(s): F17.200 - Nicotine dependence, unspecified, uncomplicated Additional A&P Information Tobacco dependency, counseled Alcohol abuse, CIWA protocol, thiamine, folic acid Bipolar depression. Patient resistant to medication Secondary to leukocytosis, symptoms of nausea, and slightly abnormal chest x-ray will check influenza swab. Continue to monitor for any respiratory symptoms. 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
[2019-07-09] MEDS: LORazepam 2 mg/mL INJ 1 mL IM (20:59)
[2019-07-09] MEDS: enoxaparin 40 mg/0.4 mL Syringe SUBCUT (21:47)
[2019-07-10] VITALS (8 sets, daily range): BP systolic 148–174; BP diastolic 75–91; PULSE 64–68; RESP 16–22; TEMP 36.6–37.2; O2SAT 92–95
[2019-07-10] MEDS: ondansetron 2 mg/ML SDV 2 mL 4 MG IVP ×2 (00:05→08:25)
[2019-07-10] MEDS: morphine 4 mg/mL SDV 1 mL 2 MG IVP ×3 (00:06→16:02)
[2019-07-10] MEDS: dextrose 5%-lactated ringers 1,000 ML 75 ML IV ×2 (01:56→16:03)
--- NOTE | 2019-07-10 05:50 | PC.NURSE ---
SHIFT SUMMARY Has rested for intervals tonight. Has c/o some abd bloating pain and tenderness. Abdomen soft. Has occ nausea without any vomiting this shift. Says is actually feeling like he would like some liquids to try.Remains NPO except ice chips. Had discussion with pt at beginning of shift regarding IV Morphine. Had stated he did not like the way the 4mg made him feel and it also was giving him a headache. Was requesting to receive a lower dose. Dr was called and order was received for 2mg dose prn. Pt states he did much better with this dose. Received Ativan X1 per CIWA score based on nausea, anxiety and headache No tremors/shakiness or agitation has been noted. IV infusing without difficulty at 75ml/hr rate. has been at bedside.
[2019-07-10 06:26] LABS: Basophils % 0.3 %; Eosinophils # 0.3 10^3/uL (0.0-0.8); Eosinophils % 2.1 %; Hematocrit 40.8 % (42.0-52.0); Hemoglobin 14.3 g/dL (11.7-16.6); Lymphocytes # 1.8 10^3/uL (0.8-4.8); Lymphocytes % 12.5 %; Mean Corpuscular Hemoglobin 36.3 pg (28.0-34.0); Mean Corpuscular Volume 103.6 fL (80-94); Mean Platelet Volume 10.1 fL (7.4-10.4); Monocytes # 1.4 10^3/uL (0.2-0.9); Monocytes % 9.7 %; Neutrophils # 10.7 10^3/uL (1.8-7.7); Neutrophils % 74.9 %; Nucleated Red Blood Cells % 0 %; Platelet Count 148 10^3/cmm (130-400); Red Blood Count 3.94 10^6/uL (4.1-5.3); Red Cell Distribution Width 14.4 % (12.1-15.1); White Blood Count 14.2 10^3/uL (4.0-10.0)
[2019-07-10 06:47] LABS: Alanine Aminotransferase 14 U/L (0-41); Albumin Level 2.9 g/dL (3.5-5.2); Alkaline Phosphatase 66 IU/L (40-130); Anion Gap 13.6 (5-19); Aspartate Amino Transferase 19 U/L (0-40); Blood Urea Nitrogen 10 mg/dL (8-23); Carbon Dioxide 26 mmol/L (22-29); Chloride 98 mmol/L (98-107); Globulin 3.1 g/dL (1.3-4.6); Glomerular Filtration Rate 112.8 mL/min (90-130); Glucose 127 mg/dL (65-115); Lipase 228 U/L (13-60); Osmolality Calculated 276 mOsm/kg (285-295); Potassium 3.6 mmol/L (3.5-5.1); Sodium 134 mmol/L (136-145); Total Bilirubin 0.7 mg/dL (0.15-1.2)
[2019-07-10] MEDS: thiamine 100 mg Tablet PO (08:18)
[2019-07-10] MEDS: LORazepam 2 mg Tablet PO (08:18)
[2019-07-10] MEDS: multivitamin therapeutic Tablet 1 TAB PO (08:18)
[2019-07-10] MEDS: folic acid 1 mg Tablet PO (08:18)
--- NOTE | 2019-07-10 12:06 | P.PN_ITS ---
Subjective Subjective: Interval history: Channing reports he is feeling better. He has less abdominal pain. He reports he would like to try something by mouth. Medications: Reviewed: Yes Vitals/I&O/Wt Last Vital Signs Temp 98.7 F 07/10/19 11:12 Pulse 64 07/10/19 11:12 Resp 18 07/10/19 11:12 BP 169/91 07/10/19 11:12 Pulse Ox 95 07/10/19 11:12 07/09/19 07/10/19 07/10/19 22:59 06:59 14:59 Intake Total 1111.25 / 2111.25 Output Total 250 / 250 450 / 700 100 / 100 Balance -250 / 750 661.25 / 1411.25 -100 / -100 Weight last 48 hrs Weight 70.76 kg Physical Exam Narrative: EXAM NARRATIVE: General exam is no apparent distress Cardiovascular regular rate and rhythm without murmur Lungs clear Abdomen is soft, tenderness is in the epigastric area. Positive bowel sounds. Pain is improved Extremities no cyanosis clubbing or edema Data : 07/10/19 06:12 07/10/19 06:12 A&P Assessment and plan (1) Acute pancreatitis: Significant episode of acute pancreatitis. Lipase has improved to 228 . Triglyceride level was not high enough to induce pancreatitis Add Protonix 40 mg twice daily secondary to abdominal discomfort Start clear liquids as he is markedly improved Reduce IV fluids Status: Acute Qualifiers: Acute pancreatitis complication: no infection or necrosis Pancreatitis type: alcohol induced Qualified Code(s): K85.20 - Alcohol induced acute pancreatitis without necrosis or infection Code(s): K85.90 - Acute pancreatitis without necrosis or infection, unspecified (2) Alcohol abuse: Counseled on abstinence Status: Acute Code(s): F10.10 - Alcohol abuse, uncomplicated (3) Smoker: Status: Acute Code(s): F17.200 - Nicotine dependence, unspecified, uncomplicated Additional A&P Information Tobacco dependency, counseled Alcohol abuse, CIWA protocol, thiamine, folic acid Bipolar depression. Patient resistant to medication Secondary to leukocytosis, symptoms of nausea, and slightly abnormal chest x-ray will check influenza swab. Influenza swab was negative. Attestations Medical Necessity Statement*: Needs continued hospitalization, with start of refeeding after episode of rather severe pancreatitis. 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
--- NOTE | 2019-07-10 12:13 | PC.CHAP ---
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 [] Patient/Family/Request visit [] Outpatient visit [] Follow-up visit [] Physician referral [] Code/Alert [x] Routine visit [] Staff referral [] Actively dying [x] Patient sleeping [] Family support [] [] Out of room [] Palliative care [] [] Receiving care in room [] Pre-surgical visit [] Trauma [] Long length of stay [] ICU visit [] Other: Relational/Emotional Strength [x] Patient feels connected with others/family/visitors/staff [] Distress [] Loneliness/isolation [] Abandonment Spirituality of Patient [] Person of Krista [] Attends Caodaism of their Krista [] Believes in Prayer [] Reads Bible or Mosque materials [] There are Spiritual issues to be addressed 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 [x] Prayer [x] Active listening [] Non-anxious presence [] Spiritual/emotional support [] Crisis/trauma care [] Spiritual counseling [] Bereavement support [] Provided bereavement packet [] Provided Bible/devotional materials [] Provided toy/stuffed animal, coloring book to patient or family member [] Provided Communion [] Anointing/[place] [] Salvation [] Completed spiritual assessment [] Other: Impact on Illness or Injury [] Angry [] Fearful [] Anxious [] Often cries [] Exhaustion [] Unable to work [] Unable to attend quaker [] Unable to walk/stand [] Unable to read [] Unable to drive [] Unable to eat/drink [] Unable to sleep [] Unable to be with family [] Patient intubated [x] Other: Summary Patient was asleep and had his in attendance. Prayer provided. Time spent with patient 3 minutes
[2019-07-10] MEDS: pantoprazole 40 mg SDV IVP ×2 (12:52→21:19)
[2019-07-10] MEDS: enoxaparin 40 mg/0.4 mL Syringe SUBCUT (21:19)
[2019-07-11] VITALS: BP 168/78; PULSE 72; RESP 18; TEMP 36.5; O2SAT 94
[2019-07-11 04:00] VITALS: BP 159/85; PULSE 63; RESP 20; TEMP 36.7; O2SAT 92
[2019-07-11 07:44] VITALS: BP 151/76; PULSE 66; RESP 22; TEMP 37.2; O2SAT 92
[2019-07-11] MEDS: thiamine 100 mg Tablet PO (09:50)
[2019-07-11] MEDS: multivitamin therapeutic Tablet 1 TAB PO (09:50)
[2019-07-11] MEDS: pantoprazole 40 mg SDV IVP (09:51)
[2019-07-11] MEDS: folic acid 1 mg Tablet PO (09:51)
--- NOTE | 2019-07-11 10:35 | P.DS_ITS ---
Discharge Providers Date of Admission: 07/08/19 19:45 Date of Discharge: July 11, 2019 Attending Provider at Admission: John De Jesus MD Attending Provider at Discharge: Avery Ness MD Diagnoses at Discharge Discharge Diagnosis (1) Acute pancreatitis: Status: Acute Problem details: Symptoms resolving. He is going to slowly increase diet as tolerated Qualifiers: Acute pancreatitis complication: no infection or necrosis Pancreatitis type: alcohol induced Qualified Code(s): K85.20 - Alcohol induced acute pancreatitis without necrosis or infection (2) Alcohol abuse: Status: Acute Problem details: Discussed with him abstinence. (3) Smoker: Status: Acute Problem details: Discussed with him abstinence, counseling occurred Reason for Visit Reason for Visit: Reason For Visit: abd pain/ back pain Hospital Course Hospital Course: Tanvir is a 68-year-old white male who presented to the hospital with abdominal pain and bloating. Lipase was found to be elevated consistent with pancreatitis. Imaging was consistent with pancreatitis. Initial lipase 2280 consistent with pancreatitis. Triglyceride level was not concerning. During his hospital course he was made n.p.o., and he was followed clinically as well as with lipase levels. He had gradual improvement every day. Diet was reinitiated July 09, and by July 10 he had very little discomfort and was eating better. It was thought he could hydrate himself and advance diet at home. I discussed with him abstaining from alcohol, tobacco. He has underlying bipolar disorder. We discussed his chronic back pain as well. He will initiate Neurontin 100 mg 3 times daily, and follow-up with his primary care provider 3 to 5 days. Physical Exam Narrative: EXAM NARRATIVE: General exam is no apparent distress Cardiovascular regular rate and rhythm without murmur Lungs clear Abdomen is soft with positive bowel sounds, slight tenderness epigastric area Extremities no cyanosis clubbing or edema Discharge Data Data Completed and Pending: Completed Studies During Hospitalization Category Date Time Status CT abdomen pelvis w con* [id number] Urge nt Cat Scan 07/08/19 17:30 Completed Vitals: Last Vital Signs Temp 99.0 F 07/11/19 07:44 Pulse 66 07/11/19 07:44 Resp 22 H 07/11/19 07:44 BP 151/76 07/11/19 07:44 Pulse Ox 92 07/11/19 07:44 Discharge Plan Discharge Patient Disposition: Home, Self-Care Condition: Stable Prescriptions: New gabapentin [Neurontin] 100 mg capsule 100 mg PO TID Qty: 90 RF: 0 Continued Flintstones Multivitamin Tablet,Chewable 1 tab PO DAILY RF: [address] Kaopectate [address] Str (bismuth ss) 525 mg/15 mL Suspension See Rx Instructions .ROUTE .COMPLEX RF: 0 Discharge Orders: Discharge Order (Routine); Ordered 07/11/19 Ordered By: Avery Ness Referrals: Apryl Britton ARNP [Referring] - 4-7 days Discharge Diet: Low Fat Discharge Activity: Resume usual activity Activity Restrictions/Additional Instructions: No alcohol. 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
[2019-07-11 10:53] VITALS: BP 151/76; PULSE 66; RESP 22; TEMP 37.2; O2SAT 92
== END 2019-07-11 10:55 | disposition home or self-care (01) | DRG 440 ==
LOC: ER 19:45 → MEDSURG 20:47
PROVIDERS: Physician Assistant; Admitting Provider Internal Medicine; Emergency Provider Emergency Medicine; Visit Provider Internal Medicine
DX: K85.20 Alcohol induced acute pancreatitis without necrosis or infection (principal); F10.10 Alcohol abuse, uncomplicated; F17.210 Nicotine dependence, cigarettes, uncomplicated; F31.9 Bipolar disorder, unspecified; Z79.899 Other long term (current) drug therapy
CPT/HCPCS: 12345; 36415; 74177; 80053; 80061; 80307; 81001; 83036; 83690; 84478; 85025; 86803; 87804; 96372; 96375; 99282; C9113; J1170; J1650; J2060; J2270; J2405; J2765; J3411; J7030; Q9967

== ENCOUNTER 2020-01-15 02:35 | Inpatient (IN) | payer MEDICARE, SELFPAY ==
[2020-01-15] VITALS (9 sets, daily range): BP systolic 157–181; BP diastolic 69–80; PULSE 60–88; RESP 14–20; TEMP 36.7–36.9; O2SAT 94–98; BMI 21.5
--- NOTE | 2020-01-15 02:41 | ED_ITS ---
HPI - Abdominal Pain General: Chief Complaint: Abdominal Pain Stated Complaint: ABD PAIN Time Seen by Provider: 01/15/20 02:36 Source: patient and EMS Mode of arrival: EMS Limitations: no limitations History of Present Illness: HPI narrative: 69-year-old male states he woke up this morning roughly 2 3 hours ago and is having severe epigastric abdominal pain. States pain is sharp in nature. Denies any worsening improving factors. States the pain does not radiate. Denies any chest pain. MD elicited complaint: abdominal pain Pertinent past history: none Onset (ago): hour(s) Pain Consistency: constant Location: Epigastric Quality: stabbing Radiation: none Migration to: no migration Relieving factors: nothing Associated Symptoms: Denies chills, dysuria and fever(s) Review of Systems Const: Denies: fever(s), chills, body aches or change in appetite Eyes: Denies: blurry vision or eye discomfort ENMT: Denies: throat pain or dental pain Card: Denies: chest pain Resp: Denies: dyspnea GI: Reports: abdominal pain : Denies: dysuria Musc: Denies: neck pain or back pain Skin/Breast: Denies: rash Neuro: Denies: headache(s) Psych: Denies: depression Josias/Lymph: Denies: easy bruising All/Imm: Denies: urticaria PFSH ED PFSH: Medical History Alcohol abuse Discussed with him abstinence. Bipolar 1 disorder Insomnia Smoker Discussed with him abstinence, counseling occurred Surgical History No pertinent past surgical history Family History Denies family history of Diabetes Clotting disorder Dementia Chronic kidney disease (CKD) Social History Smoking and tobacco status: current every day smoker cigarettes Packs smoked per day: 3 Years cigarettes smoked: 45 Alcohol intake: current Household members: spouse Housing: House Marital status: Current occupation: On disability because of lower back pain and scoliosis Physical Exam Const: COMMON NORMALS: no acute distress, patient oriented x3 and healthy appearing HENMT: COMMON NORMALS: normocephalic and atraumatic HEAD & SCALP: normocephalic and atraumatic Eye: COMMON NORMALS: Equal, round and reactive pupils present and EOMs intact bilaterally PUPIL: Yes Equal, round and reactive pupils present Neck/C-Spine: COMMON NORMALS: full ROM and supple Chest: COMMONS NORMALS: normal inspection of the chest and normal palpation of entire chest wall Resp: COMMON NORMALS: normal respiratory effort, No retractions, No use of accessory muscles and clear to auscultation bilaterally AUSCULTATION: clear to auscultation bilaterally Cardio: COMMON NORMALS: regular rate, regular rhythm and No murmurs present (Cardio) RATE: regular rate RHYTHM: regular rhythm GI: COMMON NORMALS: Normal to inspection, nondistended, normoactive bowel sounds present, Soft to palpation and no masses PALPATION: Yes Soft to palpation and Yes Tenderness to palpation present (GI) (epigastric) Extremity: COMMON NORMALS: normal to inspection and full ROM Neuro: COMMON NORMALS: patient oriented x3, moves all extremities and no focal motor deficits Psych: COMMON NORMALS: mental status grossly normal, Normal thought process present and cooperative THOUGHT PROCESS: Normal thought process present Skin: COMMON NORMALS: no rashes or lesions noted and no wounds GENERAL SKIN EXAM: no rashes or lesions noted Course Vital Signs: Vital signs: Vital Signs Temperature 98.0 F 01/15/20 02:36 Pulse Rate 66 01/15/20 02:36 Respiratory Rate 16 01/15/20 03:26 Blood Pressure 157/78 01/15/20 02:36 Pulse Oximetry 98 01/15/20 02:36 MDM - Abdominal Pain MDM Narrative: Medical decision making narrative: Patient presents here with pancreatitis likely causing his abdominal pain. Patient's lipase here is elevated as well. Patient has no signs of gallstones. His pain is improved here. I spoke to hospitalist and will admit at this time. Lab Data: Labs: Lab Results 01/15/20 01/15/20 Range/Units 02:45 02:45 WBC 21.1 H (4.0-10.0) 10^3/ uL RBC 5.03 (4.1-5.3) 10^6/u L Hgb 16.8 H (11.7-16.6) g/dL Hct 48.6 (42.0-52.0) % MCV 96.6 H (80-94) fL MCH 33.4 (28.0-34.0) pg MCHC 34.6 (30.0-36.0) g/dL RDW 14.0 (12.1-15.1) % Plt Count 275 (130-400) 10^3/c mm MPV 9.8 (7.4-10.4) fL Neut % (Auto) 81.5 % Lymph % (Auto) 10.7 % Ralls % (Auto) 6.1 % Eos % (Auto) 0.6 % Baso % (Auto) 0.6 % Neut # (Auto) 17.22 H (1.8-7.7) 10^3/u L Lymph # (Auto) 2.3 (0.8-4.8) 10^3/u L Ralls # (Auto) 1.3 H (0.2-0.9) 10^3/u L Eos # (Auto) 0.1 (0.0-0.8) 10^3/u L Baso # (Auto) 0.1 (0.0-0.1) 10^3/u L Nucleated RBC % (a uto) 0 % Nucleated RBCs # 0.0 /100WBC Sodium 139 (136-145) mmol/L Potassium 4.0 (3.5-5.1) mmol/L Chloride 102 (98-107) mmol/L Carbon Dioxide 20 L (22-29) mmol/L Anion Gap 21.0 H (5-19) BUN 17 (8-23) mg/dL Creatinine 0.8 (0.7-1.2) mg/dL GFR Calculation 96.4 (90-130) mL/min Glucose 102 (65-115) mg/dL Calculated Osmolal ity 290 (285-295) mOsm/k g Calcium 9.7 (8.5-10.5) mg/dL Total Bilirubin 0.5 (0.15-1.2) mg/dL AST 16 (0-40) U/L ALT 12 (0-41) U/L Alkaline Phosphata se 98 (40-130) IU/L Total Protein 7.8 (6.6-8.7) g/dL Albumin 4.3 (3.5-5.2) g/dL Globulin 3.5 (1.3-4.6) g/dL Lipase 740 H (13-60) U/L Imaging Data ^: CT Abd/Pel: Radiologist's impression: [facility] [address] [place] [address] CT Scan Report Signed Patient: Channing Venegas Unit #: [id number] : 1950 0 Age/Sex: 69 / M ADM Date: 01/15/20 Loc: ER Room/Bed: Attending Dr: Ordering Provider/Ordering MD: Yobani Urrutia MD Date of Service: 01/15/20 Procedure(s): CT abdomen pelvis w con* [id number] Accession Number(s): [id number] Report Number: [id number] PROCEDURE INFORMATION: Exam: CT Abdomen And Pelvis With Contrast Exam date and time: 01/15/2020 2:54 AM Age: 69 years old Clinical indication: Abdominal pain; Generalized; Additional info: Abd pain TECHNIQUE: Imaging protocol: Computed tomography of the abdomen and pelvis with intravenous contrast. Radiation optimization: All CT scans at this facility use at least one of these dose optimization techniques: automated exposure control; mA and/or kV adjustment per patient size (includes targeted exams where dose is matched to clinical indication); or iterative reconstruction. Contrast material: OMNI 300; Contrast volume: 95 ml; Contrast route: INTRAVENOUS (IV); COMPARISON: CT abdomen pelvis w con* [id number] 07/08/2019 7:01 PM RADIATION DOSE METRICS: Total DLP (mGy-cm): 358.76 FINDINGS: Liver: Liver density now appears normal and there are no focal liver abnormalities. Left renal cyst is likely benign and unchanged. Gallbladder and bile ducts: Normal. No calcified stones. No ductal dilation. Pancreas: Peripancreatic edema noted but less than that seen previously. Spleen: Normal. No splenomegaly. Adrenals: Normal. No mass. Kidneys and ureters: See Liver finding. Stomach and bowel: Unremarkable. No obstruction. No mucosal thickening. Appendix: No evidence of appendicitis. Intraperitoneal space: Unremarkable. No free air. No significant fluid collection. Vasculature: Vascular calcifications are noted. Mild dilation of distal abdominal aorta to 2 cm is unchanged. Lymph nodes: Unremarkable. No enlarged lymph nodes. Bladder: Borderline diffuse wall thickening raising question of mild muscular hypertrophy. Reproductive: Mild prostatic prominence. Bones/joints: Healed rib fractures. Soft tissues: Unremarkable. CT/CT abdomen pelvis w con* [id number] IMPRESSION: Peripancreatic edema can be correlated clinically for recurrent pancreatitis. Peripancreatic abnormalities are less prominent than those seen previously. Additional details as above. Discharge Plan Discharge Patient Disposition: Admitted As Inpatient Clinical Impression: Pancreatitis Condition: Stable Coding Level of Care Code ED Nurse Practitioner Physician Assistant for Chg Fwd Exam Comprehensive
[2020-01-15] MEDS: sodium chloride 0.9% 1,000 ML 999 ML IV (02:47)
[2020-01-15] MEDS: metoclopramide 5 mg/mL SDV 2 mL 10 MG IVP (02:48)
[2020-01-15] MEDS: diphenhydrAMINE 50 mg/mL SDV 1mL IVP (02:48)
[2020-01-15 02:56] LABS: Basophils # 0.1 10^3/uL (0.0-0.1); Basophils % 0.6 %; Eosinophils # 0.1 10^3/uL (0.0-0.8); Eosinophils % 0.6 %; Hematocrit 48.6 % (42.0-52.0); Hemoglobin 16.8 g/dL (11.7-16.6); Lymphocytes # 2.3 10^3/uL (0.8-4.8); Lymphocytes % 10.7 %; Mean Corpuscular HGB Conc 34.6 g/dL (30.0-36.0); Mean Corpuscular Hemoglobin 33.4 pg (28.0-34.0); Mean Corpuscular Volume 96.6 fL (80-94); Mean Platelet Volume 9.8 fL (7.4-10.4); Monocytes # 1.3 10^3/uL (0.2-0.9); Monocytes % 6.1 %; Neutrophils # 17.22 10^3/uL (1.8-7.7); Neutrophils % 81.5 %; Nucleated Red Blood Cells % 0 %; Platelet Count 275 10^3/cmm (130-400); Red Blood Count 5.03 10^6/uL (4.1-5.3); White Blood Count 21.1 10^3/uL (4.0-10.0)
[2020-01-15 03:15] LABS: Alanine Aminotransferase 12 U/L (0-41); Albumin Level 4.3 g/dL (3.5-5.2); Alkaline Phosphatase 98 IU/L (40-130); Aspartate Amino Transferase 16 U/L (0-40); Blood Urea Nitrogen 17 mg/dL (8-23); Calcium 9.7 mg/dL (8.5-10.5); Carbon Dioxide 20 mmol/L (22-29); Chloride 102 mmol/L (98-107); Creatinine Clr Calc Pharmacy 90.0024; Globulin 3.5 g/dL (1.3-4.6); Glomerular Filtration Rate 96.4 mL/min (90-130); Glucose 102 mg/dL (65-115); Osmolality Calculated 290 mOsm/kg (285-295); Sodium 139 mmol/L (136-145); Total Bilirubin 0.5 mg/dL (0.15-1.2); Total Protein 7.8 g/dL (6.6-8.7)
[2020-01-15 03:26] LABS: Lipase 740 U/L (13-60)
[2020-01-15] MEDS: HYDROmorphone 1 mg/mL INJ 1 mL IVP ×3 (03:26→23:09)
[2020-01-15] MEDS: iohexol 300 mg/mL 100 mL Btl IV (03:42)
--- NOTE | 2020-01-15 05:19 | P.HP_ITS ---
Providers/Chief Complaint Chief Complaint: ABD PAIN History of Present Illness Channing Venegas is a 69 year old male who has history of recurrent pancreatitis secondary to alcohol abuse came in today with chief complaint abdominal pain. Patient is stating that he drinks alcohol in order to sleep, his last alcoholic drink was yesterday in the afternoon, usually he drinks 6 to 8 ounces of whiskey, around 11:30 PM yesterday he woke up because of abdominal cramps which gradually got worse, he started experiencing dry heaves, these abdominal cramps were associated with back pain radiating towards his flanks. He did not notice any fever, emesis, dysuria, chest pain or shortness of breath. Diagnosis in the ER lipase 740, CT abdomen revealed pancreatitis, leukocytosis, hemoconcentratio n, patient is afebrile without signs of necrotic pancreas or sepsis. At the time of my evaluation patient was endorsing 8/10 midepigastric tenderness. Review of Systems Const: Reports: body aches and fatigue; Denies: fever(s) Eyes: Denies: change in vision ENMT: Denies: throat pain Card: Denies: chest pain Resp: Denies: dyspnea GI: Reports: abdominal pain, nausea, heartburn and GI cramping; Denies: vomiting, diarrhea or constipation : Denies: flank pain Musc: Denies: neck pain Skin/Breast: Denies: rash Neuro: Denies: headache(s) Psych: Denies: anxiety Endo: Denies: polyuria Josias/Lymph: Denies: easy bruising All/Imm: Denies: urticaria Medications/Allergies Home Medications Medication Instructions Recorded Confirmed Last Taken Type Flintstones Multivitamin 1 tab PO DAILY 07/08/19 07/08/19 07/07/19 History Kaopectate Ex Str (bismuth ss) See Rx Instructions .ROUTE .COMPLEX 07/08/19 07/08/19 Unknown History gabapentin [Neurontin] 100 mg PO TID #90 cap 07/11/19 Unknown Rx Allergies Allergy/AdvReac Type Severity Reaction Status Date / Time Penicillins Allergy Unknown Verified 01/15/20 02:40 PFSH Acute PFSH: Medical History Alcohol abuse . Bipolar 1 disorder Insomnia Smoker Surgical History No pertinent past surgical history Family History Denies family history of Diabetes Clotting disorder Dementia Chronic kidney disease (CKD) Social History (Updated 01/15/20 @ 06:40 by John De Jesus MD) Smoking and tobacco status: current every day smoker cigarettes Packs smoked per day: 3 Years cigarettes smoked: 45 Alcohol intake: current Alcohol intake frequency: 3 or more drinks per day Alcohol type: hard liquor Substance/Drug Use: never Household members: spouse Housing: House Marital status: Current occupation: On disability because of lower back pain and scoliosis Vitals/I&O/Wt Last Vital Signs Temp 98.0 F 01/15/20 02:36 Pulse 66 01/15/20 02:36 Resp 16 01/15/20 03:26 BP 157/78 01/15/20 02:36 Pulse Ox 98 01/15/20 02:36 Weight last 48 hrs Weight 68.039 kg Physical Exam Narrative: EXAM NARRATIVE: Malnourished male Currently laying comfortably in his bed complaining of midepigastric region abdominal tenderness on deep palpation No active dry heaves or vomiting S1, S2 no tachycardia no signs of heart failure or sepsis Bowel sound present, midepigastric tenderness on deep palpation, flank distention Lower extremity no signs of edema gangrene or ulcer Lungs are clear to auscultation EOMI, PERRLA Appropriate mood and affect Poor dental hygiene Data : 01/15/20 02:45 01/15/20 02:45 A&P Assessment and plan (1) Pancreatitis: Status: Acute (2) Alcohol abuse: Status: Acute (3) Smoker: Status: Acute Additional A&P Information Recurrent pancreatitis secondary to alcohol abuse N.p.o. D5 lactated Ringer at 100 cc/h Analgesia with Dilaudid Zofran for antiemetic regimen Patient is drinking 4 to 6 ounces of whiskey every day in order to sleep, need reinforcement to quit alcohol, would also recommend pancreatic enzymes for chronic pancreatitis and supplemental diet No signs of necrotic pancreas or sepsis, no signs of choledocholithiasis or cholelithiasis Added IV thiamine Nicotine dependence Need reinforcement to quit smoking, will add nicotine replacement therapy on as- needed basis DVT prophylaxis: Lovenox N.p.o. Full code GI prophylaxis protonix Attestations Medical Necessity Statement*: Anticipating stay in the hospital to cross more than 2 midnights for management of pancreatitis secondary to alcohol abuse Time Spent in Patient Care: (>than 50% of time spent in counselling and/or direct pt care on unit) . 35mins Coding Level of Care Code Acute Material Carrier for Chey Howe Diagnoses Pancreatitis K85.90 Alcohol abuse F10.10 Smoker F17.200
[2020-01-15] MEDS: ondansetron 2 mg/ML SDV 2 mL 4 MG IVP ×3 (07:06→23:08)
[2020-01-15] MEDS: HYDROmorphone 1 mg/mL INJ 1 mL 2 MG IVP (07:06)
[2020-01-15] MEDS: dextrose 5%-lactated ringers 1,000 ML 100 ML IV ×2 (07:07→16:40)
[2020-01-15] MEDS: enoxaparin 40 mg/0.4 mL Syringe SUBCUT (07:51)
[2020-01-15 09:01] LABS: Iron 66 ug/dL (59-158); Percent Saturation 23.7 % (20-50); Total Iron Binding Capacity 278 mcg/dl; Unsaturated Iron Binding 212 ug/dL (112-347)
[2020-01-15] MEDS: folic acid 1 mg Tablet PO (09:21)
[2020-01-15] MEDS: multivitamin therapeutic Tablet 1 TAB PO (09:21)
[2020-01-15] MEDS: pantoprazole 40 mg SDV IVP (09:22)
[2020-01-15] MEDS: LORazepam 2 mg/mL INJ 1 mL IM (10:30)
--- NOTE | 2020-01-15 10:52 | P.PN_ITS ---
Subjective Subjective: Interval history: Admitted overnight. H&P and labs noted. On examination patient is lying comfortably in bed. He states he drinks at least 4-5 shots of straight whiskey every day. He states it helps him sleep. Complains of nausea and vomiting. Complains of abdominal pain. States he is not hungry. Denies of having any dizziness, headache, cough. Vitals/I&O/Wt Last Vital Signs Temp 98.3 F 01/15/20 07:58 Pulse 81 01/15/20 07:58 Resp 18 01/15/20 07:58 BP 177/73 01/15/20 07:58 Pulse Ox 96 01/15/20 07:58 Weight last 48 hrs Weight 68.039 kg Physical Exam Narrative: EXAM NARRATIVE: Malnourished male Currently laying comfortably in his bed complaining of midepigastric region abdominal tenderness on deep palpation No active dry heaves or vomiting S1, S2 no tachycardia no signs of heart failure or sepsis Bowel sound present, midepigastric tenderness on deep palpation, flank distention Lower extremity no signs of edema gangrene or ulcer Lungs are clear to auscultation EOMI, PERRLA Appropriate mood and affect Poor dental hygiene Data : 01/15/20 02:45 01/15/20 02:45 Micro: Microbiology 01/15/20 09:43 Blood Culture - Preliminary Blood SPECIMEN COLLECTED 01/15/20 09:40 Blood Culture - Preliminary Blood SPECIMEN COLLECTED A&P Assessment and plan (1) Pancreatitis: Status: Acute (2) Alcohol abuse: Status: Acute (3) Smoker: Status: Acute (4) Leukocytosis: Status: Acute (5) HTN (hypertension): Status: Acute (6) Bipolar 1 disorder: Status: Acute Additional A&P Information Recurrent pancreatitis secondary to alcohol abuse: CT abdomen pelvis results appreciated. Liver enzymes within normal limit. Conservative treatment for now. Continue n.p.o. Will advance diet gradually. Continue with fluids at 100 cc/h. Dilaudid 1 mg every 6 hours IV for pain relief. Zofran for nausea as needed, Protonix 40 mg IV daily. Patient does have leukocytosis. Does not have fever. Given pancreatitis on CT scan we will start patient on imipenem for now. Will check MRSA swab. If MRSA is positive will start oral vancomycin as well. We will continue to trend leukocytosis and fever. If patient remains afebrile for next 24 hours can discontinue antibiotics. Alcohol abuse: Chronic alcohol abuse. Check vitamin B12 levels. We will start patient on IV thiamine, folic acid. Ativan as per [facility] protocol. Nicotine dependence Need reinforcement to quit smoking, will add nicotine replacement therapy on as- needed basis Hypertension: Patient states he has a history of hypertension but does not like taking medications. Goal of pressure less than 140/90 mmHg. Start patient on amlodipine 10 mg daily with first dose right now. We will continue to monitor. Bipolar disorder: Patient states he has a history of bipolar disorder but does not take any medications he does not like to take any medications. He states for now he does not want to take any medications. DVT prophylaxis: Lovenox N.p.o. Full code GI prophylaxis protonix Patient states he had a PCP in the past but does not anymore. He would like to be set up with a PCP. Will consult case management for further planning. Attestations Medical Necessity Statement*: Acute enteritis, alcohol abuse Time Spent in Patient Care: Greater than 35 minutes (>than 50% of time spent in counselling and/or direct pt care on unit) . Coding Level of Care Code Acute Loading Unit Tool Setter for g Fwd Diagnoses Pancreatitis K85.90 Alcohol abuse F10.10 Smoker F17.200 Leukocytosis D72.829 HTN (hypertension) I10 Bipolar 1 disorder F31.9
--- NOTE | 2020-01-15 14:39 | PC.CHAP ---
Pastoral Care Encounter/Spiritual Assessment Type of Contact [] Declined rap artist visit [] Patient/Family/Request visit [] Outpatient visit [] Follow-up visit [] Physician referral [] Code/Alert [x] Routine visit [] Staff referral [] Actively dying [] Patient sleeping [] Family support [] [] Out of room [] Palliative care [] [x] Receiving care in room [] Pre-surgical visit [] Trauma [] Long length of stay [] ICU visit [] Other: Relational/Emotional Strength [x] Patient feels connected with others/family/visitors/staff [x] Distress [] Loneliness/isolation [] Abandonment Spirituality of Patient [x] Person of Krista [] Attends Taoism of their Krista [x] Believes in Prayer [] Reads Bible or Denominational materials [] There are Spiritual issues to be addressed Brand Marketing Intern Interventions [x] Prayer [x] Active listening [x] Non-anxious presence [x] Spiritual/emotional support [] Crisis/trauma care [x] Spiritual counseling [] Bereavement support [] Provided bereavement packet [] Provided Bible/devotional materials [] Provided toy/stuffed animal, coloring book to patient or family member [] Provided Communion [] Anointing/[place] [] Salvation [x] Completed spiritual assessment [] Other: Impact on Illness or Injury [] Angry [] Fearful [x] Anxious [] Often cries [] Exhaustion [x] Unable to work [] Unable to attend advent [] Unable to walk/stand [] Unable to read [x] Unable to drive [] Unable to eat/drink [] Unable to sleep [] Unable to be with family [] Patient intubated [] Other: Summary Nossia unable to eat food, was able to communicate with her she doesn't know if shw will get better? Time spent with patient 10 mins
--- NOTE | 2020-01-15 14:44 | PC.CHAP ---
Pastoral Care Encounter/Spiritual Assessment Type of Contact [] Declined pyridine operator visit [] Patient/Family/Request visit [] Outpatient visit [] Follow-up visit [] Physician referral [] Code/Alert [x] Routine visit [] Staff referral [] Actively dying [] Patient sleeping [] Family support [] [] Out of room [] Palliative care [] [x] Receiving care in room [] Pre-surgical visit [] Trauma [] Long length of stay [] ICU visit [] Other: Relational/Emotional Strength [x] Patient feels connected with others/family/visitors/staff [] Distress [] Loneliness/isolation [] Abandonment Spirituality of Patient [x] Person of Krista [] Attends Gnosticism of their Krista [x] Believes in Prayer [] Reads Bible or Spiritism materials [] There are Spiritual issues to be addressed Trust Advisor Interventions [x] Prayer [x] Active listening [x] Non-anxious presence [x] Spiritual/emotional support [] Crisis/trauma care [x] Spiritual counseling [] Bereavement support [] Provided bereavement packet [] Provided Bible/devotional materials [] Provided toy/stuffed animal, coloring book to patient or family member [] Provided Communion [] Anointing/[place] [] Salvation [x] Completed spiritual assessment [] Other: Impact on Illness or Injury [] Angry [] Fearful [] Anxious [] Often cries [] Exhaustion [] Unable to work [] Unable to attend denominational [] Unable to walk/stand [] Unable to read [] Unable to drive [] Unable to eat/drink [] Unable to sleep [] Unable to be with family [] Patient intubated [] Other: Summary Negative feeling, vomiting, she hopes things will get better has a good attititute Time spent with patient 10 mins
[2020-01-15] MEDS: amlodipine 10 mg Tablet PO (16:40)
[2020-01-15] MEDS: LORazepam 2 mg Tablet PO (23:08)
[2020-01-16] VITALS (9 sets, daily range): BP systolic 118–160; BP diastolic 67–80; PULSE 61–68; RESP 13–18; TEMP 36.3–37.2; O2SAT 90–95
[2020-01-16] MEDS: dextrose 5%-lactated ringers 1,000 ML 100 ML IV (05:55)
[2020-01-16 06:03] LABS: Basophils % 0.2 %; Eosinophils # 0.1 10^3/uL (0.0-0.8); Eosinophils % 0.7 %; Hematocrit 46.2 % (42.0-52.0); Hemoglobin 15.5 g/dL (11.7-16.6); Lymphocytes # 1.8 10^3/uL (0.8-4.8); Lymphocytes % 10.4 %; Mean Corpuscular HGB Conc 33.5 g/dL (30.0-36.0); Mean Corpuscular Hemoglobin 32.8 pg (28.0-34.0); Mean Corpuscular Volume 97.9 fL (80-94); Mean Platelet Volume 10.3 fL (7.4-10.4); Monocytes # 1.5 10^3/uL (0.2-0.9); Monocytes % 8.9 %; Neutrophils # 13.49 10^3/uL (1.8-7.7); Neutrophils % 79.4 %; Nucleated Red Blood Cells % 0 %; Platelet Count 224 10^3/cmm (130-400); Red Blood Count 4.72 10^6/uL (4.1-5.3)
[2020-01-16] MEDS: ondansetron 2 mg/ML SDV 2 mL 4 MG IVP ×2 (06:09→12:46)
[2020-01-16] MEDS: HYDROmorphone 1 mg/mL INJ 1 mL IVP ×2 (06:09→13:50)
[2020-01-16 07:02] LABS: Alanine Aminotransferase 8 U/L (0-41); Albumin Level 3.5 g/dL (3.5-5.2); Alkaline Phosphatase 79 IU/L (40-130); Anion Gap 14.8 (5-19); Aspartate Amino Transferase 12 U/L (0-40); Blood Urea Nitrogen 12 mg/dL (8-23); Calcium 9.3 mg/dL (8.5-10.5); Carbon Dioxide 25 mmol/L (22-29); Chloride 101 mmol/L (98-107); Creatinine Clr Calc Pharmacy 90.0024; Globulin 2.8 g/dL (1.3-4.6); Glomerular Filtration Rate 112.5 mL/min (90-130); Glucose 118 mg/dL (65-115); Magnesium 1.7 mg/dL (1.7-2.3); Osmolality Calculated 285 mOsm/kg (285-295); Potassium 3.8 mmol/L (3.5-5.1); Sodium 137 mmol/L (136-145); Total Bilirubin 0.7 mg/dL (0.15-1.2); Total Protein 6.3 g/dL (6.6-8.7)
--- NOTE | 2020-01-16 08:54 | XRR_ITS ---
PROCEDURE INFORMATION: Exam: XR Chest, 1 View Exam date and time: 01/16/2020 9:07 AM Age: 69 years old Clinical indication: Shortness of breath; Additional info: SOB, pancreatitis TECHNIQUE: Imaging protocol: XR of the chest Views: 1 view. COMPARISON: No relevant prior studies available. FINDINGS: Lungs: Emphysematous change and mild interstitial prominence. Pleural space: No pleural effusion. Heart/Mediastinum: No cardiomegaly. Bones/joints: Osteopenia and mild degenerative change. XR/XR chest 1V portable [id number] IMPRESSION: Emphysematous change and mild interstitial prominence.
--- NOTE | 2020-01-16 09:00 | P.PN_ITS ---
Subjective Subjective: Interval history: No Crohn's overnight. Patient continues to have abdominal pain and complains of nausea. Has not had any more vomiting. States he is tolerating clear liquid diet for now. Denies of any having any chest pain, headache, dizziness, hallucinations. Till now in last 24 hours patient has received 2 mg of IM Ativan and 2 mg of p.o. Ativan. Vitals/I&O/Wt Last Vital Signs Temp 98.9 F 01/16/20 08:00 Pulse 61 01/16/20 08:00 Resp 18 01/16/20 08:00 BP 158/79 01/16/20 08:00 Pulse Ox 90 01/16/20 08:00 01/15/20 01/16/20 01/16/20 22:59 06:59 14:59 Intake Total 1150 / 1250 1000 / 2250 Balance 1150 / 1250 1000 / 2250 Weight last 48 hrs Weight 68.039 kg Physical Exam Narrative: EXAM NARRATIVE: Malnourished male Currently laying comfortably in his bed complaining of midepigastric region abdominal tenderness on deep palpation No active dry heaves or vomiting S1, S2 no tachycardia no signs of heart failure or sepsis Bowel sound present, midepigastric tenderness on deep palpation, flank distention Lower extremity no signs of edema gangrene or ulcer Lungs are clear to auscultation EOMI, PERRLA Appropriate mood and affect Poor dental hygiene Data : 01/16/20 05:08 01/16/20 05:08 Micro: Microbiology 01/15/20 10:30 MRSA Culture - Final Nose 01/15/20 09:43 Blood Culture - Preliminary Blood SPECIMEN COLLECTED 01/15/20 09:40 Blood Culture - Preliminary Blood SPECIMEN COLLECTED A&P Assessment and plan (1) Pancreatitis: Status: Acute (2) Alcohol abuse: Status: Acute (3) Smoker: Status: Acute (4) Leukocytosis: Status: Acute (5) HTN (hypertension): Status: Acute (6) Bipolar 1 disorder: Status: Acute Additional A&P Information Recurrent pancreatitis secondary to alcohol abuse: CT abdomen pelvis results appreciated. Liver enzymes within normal limit. Conservative treatment for now. Continue n.p.o. Will advance diet gradually. Continue with fluids at 100 cc/h. Dilaudid 1 mg every 8 hours IV for pain relief. Zofran for nausea as needed, Protonix 40 mg IV daily. Patient does have leukocytosis. Does not have fever. Given pancreatitis on CT scan we will start patient on imipenem for now. MRSA swab is negative. No vancomycin for now. On review of old records on last admission it well patient had leukocytosis up to 14,000. We will do a peripheral smear. Patient continues to remain afebrile in next 24 hours we will hold off on antibiotics at that point. Alcohol abuse: Chronic alcohol abuse. Check vitamin B12 levels. We will start patient on IV thiamine, folic acid. Ativan as per [facility] protocol. Nicotine dependence Need reinforcement to quit smoking, will add nicotine replacement therapy on as- needed basis Hypertension: Patient states he has a history of hypertension but does not like taking medications. Goal of pressure less than 140/90 mmHg. Start patient on amlodipine 10 mg daily with first dose right now. We will continue to monitor. Bipolar disorder: Patient states he has a history of bipolar disorder but does not take any medications he does not like to take any medications. He states for now he does not want to take any medications. DVT prophylaxis: Lovenox N.p.o. Full code GI prophylaxis protonix Patient states he had a PCP in the past but does not anymore. He would like to be set up with a PCP. Will consult case management for further planning. Attestations Medical Necessity Statement*: Alcohol induced pancreatitis Time Spent in Patient Care: Greater than 35 minutes (>than 50% of time spent in counselling and/or direct pt care on unit) . Coding Level of Care Code Acute Driver Supervisor for Chey Howe Diagnoses Pancreatitis K85.90 Alcohol abuse F10.10 Smoker F17.200 Leukocytosis D72.829 HTN (hypertension) I10 Bipolar 1 disorder F31.9
[2020-01-16] MEDS: multivitamin therapeutic Tablet 1 TAB PO (09:38)
[2020-01-16] MEDS: amlodipine 10 mg Tablet PO (09:38)
[2020-01-16] MEDS: folic acid 1 mg Tablet PO (09:38)
[2020-01-16 09:39] LABS: LAB Peripheral Smear Sent for Review
[2020-01-16] MEDS: pantoprazole 40 mg SDV IVP (10:00)
[2020-01-16] MEDS: LORazepam 2 mg/mL INJ 1 mL IM (12:47)
[2020-01-17] MEDS: dextrose 5%-lactated ringers 1,000 ML 100 ML IV (00:57)
[2020-01-17 04:00] VITALS: BP 134/74; PULSE 64; RESP 12; TEMP 36.9; O2SAT 93
[2020-01-17 07:34] VITALS: BP 148/76; PULSE 65; RESP 18; TEMP 36.8; O2SAT 93
[2020-01-17] MEDS: enoxaparin 40 mg/0.4 mL Syringe SUBCUT (08:26)
[2020-01-17] MEDS: amlodipine 10 mg Tablet PO (08:26)
[2020-01-17] MEDS: multivitamin therapeutic Tablet 1 TAB PO (08:26)
[2020-01-17] MEDS: folic acid 1 mg Tablet PO (08:26)
--- NOTE | 2020-01-17 08:26 | PM.DCS ---
Discharge Providers Date of Admission: 01/15/20 05:11 Date of Discharge: January 17, 2020 Attending Provider at Admission: John De Jesus MD Attending Provider at Discharge: Nickolas Gong MD Diagnoses at Discharge Discharge Diagnosis (1) Pancreatitis: Status: Acute (2) Alcohol abuse: Status: Acute (3) Smoker: Status: Acute (4) Leukocytosis: Status: Acute (5) HTN (hypertension): Status: Acute (6) Bipolar 1 disorder: Status: Acute Reason for Visit Reason for Visit: ABD PAIN Hospital Course Discharge Summary: Channing Venegas is a 69 year old male who has history of recurrent pancreatitis secondary to alcohol abuse came in today with chief complaint abdominal pain. Patient is stating that he drinks alcohol in order to sleep, his last alcoholic drink was yesterday in the afternoon, usually he drinks 6 to 8 ounces of whiskey, around 11:30 PM yesterday he woke up because of abdominal cramps which gradually got worse, he started experiencing dry heaves, these abdominal cramps were associated with back pain radiating towards his flanks. He did not notice any fever, emesis, dysuria, chest pain or shortness of breath. Diagnosis in the ER lipase 740, CT abdomen revealed pancreatitis, leukocytosis, hemoconcentration, patient is afebrile without signs of necrotic pancreas or sepsis. At the time of my evaluation patient was endorsing 8/10 midepigastric tenderness. Patient was admitted to the hospital for conservative treatment of pancreatitis. He was also gradually started on diet. On day of discharge he is able to tolerate full liquid diet well without any nausea vomiting for last 48 hours. Patient is using minimal medication for pain. CT abdomen pelvis was done on admission which was consistent with recurrent pancreatitis without any signs of pancreatic cyst. Patient had leukocytosis on admission but did not have any fever but given peripancreatic inflammation of started on broad-spectrum antibiotics at the start. As patient remained afebrile and as on looking back on the old records patient had leukocytosis in the past as well antibiotics were withheld and he remained stable. Peripheral smear has been sent and the reports are awaited. He is been discharged in hemodynamic stable condition with advised to do bland/brat diet for next 1 week and advance gradually. It has been discussed with him in detail. Amlodipine 10 mg has been added for high blood pressure. Patient is made aware of the same. Appointment has been made with a new primary care provider with whom he needs to follow-up as an outpatient. Patient was counseled in detail to avoid any further consumption of alcohol to avoid recurrent pancreatitis. Physical Exam Narrative: EXAM NARRATIVE: Malnourished male Currently laying comfortably in his bed complaining of midepigastric region abdominal tenderness on deep palpation No active dry heaves or vomiting S1, S2 no tachycardia no signs of heart failure or sepsis Bowel sound present, midepigastric tenderness on deep palpation, flank distention Lower extremity no signs of edema gangrene or ulcer Lungs are clear to auscultation EOMI, PERRLA Appropriate mood and affect Poor dental hygiene Discharge Data Data Completed and Pending: Completed Studies During Hospitalization Category Date Time Status CT abdomen pelvis w con* [id number] Urge nt Cat Scan 01/15/20 02:39 Completed XR chest 1V alee ble [id number] Routine Exams 01/16/20 08:54 Completed Pending at discharge Category Date Time Status Blood Culture Sta t Lab 01/15/20 09:43 Results Complete Blood Co unt w/Auto AM LABS Lab 01/18/20 04:00 Ordered Complete Blood Co unt w/Auto Stat Lab 01/17/20 08:12 Ordered Comprehensive Met abolic Panel AM LA BS Lab 01/18/20 04:00 Ordered Comprehensive Met abolic Panel Routi ne Lab 01/17/20 08:12 Ordered Vitals: Last Vital Signs Temp 98.2 F 01/17/20 07:34 Pulse 65 01/17/20 07:34 Resp 18 01/17/20 07:34 BP 148/76 01/17/20 07:34 Pulse Ox 93 01/17/20 07:34 Discharge Plan Discharge Patient Disposition: Home Condition: Stable Prescriptions: New tramadol 50 mg Tablet 50 mg PO Q6H PRN (Reason: Moderate Pain) Qty: 10 RF: 0 folic acid 1 mg Tablet 1 mg PO DAILY Qty: 15 RF: 0 ciprofloxacin HCl 500 mg tablet 500 mg PO Q12H Qty: 10 RF: 0 Flagyl 500 mg tablet 500 mg PO Q8H 5 Days Qty: 15 RF: 0 amlodipine 10 mg Tablet 10 mg PO DAILY Qty: 30 RF: 0 Continued Kaopectate Ex Str (bismuth ss) 525 mg/15 mL Suspension See Rx Instructions .ROUTE .COMPLEX RF: 0 ondansetron HCl 4 mg tablet 4 mg PO Q6H PRN (Reason: Nausea) RF: 0 Gummies Children Multivitamin Tablet,Chewable 1 tab PO DAILY RF: 0 Discharge Orders: Discharge Order (Routine); Ordered 01/17/20 Ordered By: Nickolas Gong Referrals: Lisbeth Gimenez, [employer] F[facility]ER [Referring] - 1 week ([facility] SundayJanuary 19 @ 1100. ) Discharge Diet: Advance as tolerated, GI Soft and Soft Mechanical Discharge Activity: Resume usual activity Activity Restrictions/Additional Instructions: Please use GI soft/bland diet for next 1 week and advance as tolerated. You can have bananas, applesauce, toast, mashed potatoes. Please advise gradually. You have been on ciprofloxacin and Flagyl for 5 more days as antibiotics. Amlodipine 5 mg have been started for you for high blood pressure. Please take it every day. Appointment has been made for you with your primary care provider please follow-up with your doctor on the set appointment. Please avoid any consumption of alcohol going forward. Discharge Attestations Time Spent in Discharge Care*: greater than 30 min Specific Discharge Activities: Specific discharge activities: educating patient, discussing with pcp/other providers, discussing with wrapper caser/social workers/dc planners, documenting/other paperwork and evaluating patient/reviewing data Status at Discharge: Cognitive status at discharge: cognitively intact, Behavioral status at discharge: cooperative, Functional status at discharge: independent ambulation Overall status at discharge: patient is progressing back to baseline Quality Metrics Clinical Quality Measures During this hospital stay, did patient experience: None Coding Level of Care Code Acute Complex Commercial Litigation Paralegal for Ciarag Fwd Diagnoses Pancreatitis K85.90 Alcohol abuse F10.10 Smoker F17.200 Leukocytosis D72.829 HTN (hypertension) I10 Bipolar 1 disorder F31.9
[2020-01-17 09:52] LABS: Basophils # 0.1 10^3/uL (0.0-0.1); Basophils % 0.7 %; Eosinophils # 0.4 10^3/uL (0.0-0.8); Hematocrit 49.3 % (42.0-52.0); Hemoglobin 16.2 g/dL (11.7-16.6); Lymphocytes # 2.5 10^3/uL (0.8-4.8); Lymphocytes % 20.1 %; Mean Corpuscular HGB Conc 32.9 g/dL (30.0-36.0); Mean Corpuscular Hemoglobin 33.3 pg (28.0-34.0); Mean Corpuscular Volume 101.4 fL (80-94); Mean Platelet Volume 10.6 fL (7.4-10.4); Monocytes # 1.1 10^3/uL (0.2-0.9); Monocytes % 9.1 %; Neutrophils # 8.15 10^3/uL (1.8-7.7); Neutrophils % 66.8 %; Nucleated Red Blood Cells % 0 %; Platelet Count 232 10^3/cmm (130-400); Red Blood Count 4.86 10^6/uL (4.1-5.3); Red Cell Distribution Width 14.2 % (12.1-15.1); White Blood Count 12.2 10^3/uL (4.0-10.0)
[2020-01-17 10:13] LABS: Alanine Aminotransferase 9 U/L (0-41); Albumin Level 3.6 g/dL (3.5-5.2); Alkaline Phosphatase 87 IU/L (40-130); Anion Gap 14.6 (5-19); Aspartate Amino Transferase 14 U/L (0-40); Blood Urea Nitrogen 6 mg/dL (8-23); Calcium 9.7 mg/dL (8.5-10.5); Carbon Dioxide 28 mmol/L (22-29); Chloride 99 mmol/L (98-107); Globulin 3.6 g/dL (1.3-4.6); Glomerular Filtration Rate 84.2 mL/min (90-130); Glucose 125 mg/dL (65-115); Osmolality Calculated 285 mOsm/kg (285-295); Potassium 3.6 mmol/L (3.5-5.1); Sodium 138 mmol/L (136-145); Total Bilirubin 0.6 mg/dL (0.15-1.2); Total Protein 7.2 g/dL (6.6-8.7)
[2020-01-17 11:16] VITALS: BP 148/76; PULSE 65; RESP 18; TEMP 36.8; O2SAT 93
--- NOTE | 2020-01-19 07:50 | PC.RESP ---
Smoking Cessation information sent to patient.
== END 2020-01-17 11:17 | disposition home or self-care (01) | DRG 440 ==
LOC: ER 05:04 → MEDSURG 05:28
PROVIDERS: Admitting Provider Internal Medicine; Emergency Provider Emergency Medicine; Visit Provider Student in an Organized Health Care Education/Training Program
DX: K85.20 Alcohol induced acute pancreatitis without necrosis or infection (principal); F10.20 Alcohol dependence, uncomplicated; F31.9 Bipolar disorder, unspecified; F51.01 Primary insomnia; F17.210 Nicotine dependence, cigarettes, uncomplicated; M41.9 Scoliosis, unspecified; I10 Essential (primary) hypertension; K86.0 Alcohol-induced chronic pancreatitis
CPT/HCPCS: 12345; 36415; 71045; 74177; 80053; 80500; 83540; 83550; 83690; 83735; 85025; 87040; 87641; 94664; 96372; 96375; 99282; C9113; J0743; J1170; J1200; J1650; J2060; J2405; J2765; J3411; J7030; Q9967

== ENCOUNTER 2021-08-06 00:04 | Observation (INO) | payer MEDICARE, SELFPAY ==
[2021-08-06] VITALS (12 sets, daily range): BP systolic 132–184; BP diastolic 66–89; PULSE 54–88; RESP 15–22; TEMP 36.4–37.1; O2SAT 92–98; BMI 22.2
--- NOTE | 2021-08-06 00:13 | ECG_ITS ---
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 Measurements Intervals [place] Rate: 63 P: -50 UT: 161 QRS: -18 QRSD: 94 T: 59 QT: 409 QTc: 419 Interpretive Statements ECTOPIC ATRIAL RHYTHM INCOMPLETE RIGHT BUNDLE BRANCH BLOCK [90+ ms QRS DURATION, TERMINAL R IN V1/V2, 40+ ms S IN I/aVL/V4/V5/V6] ABNORMAL RHYTHM ECG No previous ECG available for comparison Electronically Signed On 08-06-2021 19:05:41 CDT by Silvana Osman M.D. [email or web address]
--- NOTE | 2021-08-06 00:13 | CTR_ITS ---
PROCEDURE INFORMATION: Exam: CT Abdomen And Pelvis With Contrast Exam date and time: 08/06/2021 1:09 AM Age: 71 years old Clinical indication: Abdominal pain; Patient HX: C/O epigastric pain with nausea. History of pancreatitis. ; Additional info: Abd pain TECHNIQUE: Imaging protocol: Computed tomography of the abdomen and pelvis with contrast. Radiation optimization: All CT scans at this facility use at least one of these dose optimization techniques: automated exposure control; mA and/or kV adjustment per patient size (includes targeted exams where dose is matched to clinical indication); or iterative reconstruction. Contrast material: OMNI 300; Contrast volume: 95 ml; Contrast route: INTRAVENOUS (IV); COMPARISON: CT abdomen pelvis w con* [id number] 01/15/2020 3:37 AM RADIATION DOSE METRICS: Total DLP (mGy-cm): 1022.3 FINDINGS: Lungs: The lung bases are clear. No effusion Liver: Normal. No mass. Gallbladder and bile ducts: No wall thickening, pericholecystic fluid or stones. Pancreas: The pancreas is enlarged and edematous with peripancreatic fat stranding. Normal pancreatic enhancement. Spleen: Normal. No splenomegaly. Adrenal glands: Normal. No mass. Kidneys and ureters: 4 mm nonobstructing left renal pelvis stone. 5.5 cm left renal cyst. Stomach and bowel: Unremarkable. No obstruction. No mucosal thickening. Appendix: No evidence of appendicitis. Intraperitoneal space: Unremarkable. No free air. No significant fluid collection. Arteries: There is mild atherosclerotic disease. Lymph nodes: Unremarkable. No enlarged lymph nodes. Urinary bladder: Unremarkable as visualized. Reproductive: Unremarkable as visualized. Bones/joints: Severe intervertebral disc space narrowing at L5-S1. Soft tissues: Unremarkable. CT/CT abdomen pelvis w con* [id number] IMPRESSION: 1. Acute pancreatitis without necrosis. 2. 4 mm nonobstructing left renal pelvis stone. COMMENTS: Consistent with the [employer]'s Incidental Findings Committee white paper (J Am Rita Radiol 2018): Any incidental renal lesion less than 1 cm or classified as too small to characterize, or any incidental cystic renal lesion characterized as simple-appearing, is likely benign. No follow-up imaging is recommended for these lesions per consensus recommendations based on imaging criteria.
--- NOTE | 2021-08-06 00:15 | ED_ITS ---
HPI - Abdominal Pain General: Chief Complaint: Abdominal Pain Stated Complaint: ABD PAIN Time Seen by Provider: 08/06/21 00:09 Source: patient Mode of arrival: ambulatory Limitations: no limitations History of Present Illness: King [id number] male who has a history of early states he drinks 3-4 shots a day at night we will go to sleep he also history of pancreatitis from his drinking alcohol. He states that he last had pancreatitis 14 months ago. He states that he been having some abdominal pain over the last day. He states it is in his epigastric region seems to radiate to his chest at times. He had nausea as well. States it does not seem as bad as when he has had pancreatitis in the past but feels similar. No nausea no vomiting no diarrhea. Associated Symptoms: Denies chills, dysuria and fever(s) Review of Systems Const: Denies: fever(s), chills, body aches or change in appetite Eyes: Denies: blurry vision or eye discomfort ENMT: Denies: throat pain or dental pain Card: Denies: chest pain Resp: Denies: dyspnea GI: Reports: abdominal pain : Denies: dysuria Musc: Denies: neck pain or back pain Skin/Breast: Denies: rash Neuro: Denies: headache(s) Psych: Denies: depression Josias/Lymph: Denies: easy bruising All/Imm: Denies: urticaria PFSH ED PFSH: Medical History Alcohol abuse Bipolar 1 disorder Insomnia Smoker Surgical History No pertinent past surgical history Family History Denies family history of Diabetes Clotting disorder Dementia Chronic kidney disease (CKD) Social History (Updated 01/15/20 @ 06:40 by John De Jesus MD) Smoking and tobacco status: current every day smoker cigarettes Packs smoked per day: 3 Years cigarettes smoked: 45 Alcohol intake: current Alcohol intake frequency: 3 or more drinks per day Alcohol type: hard liquor Household members: spouse Housing: House Marital status: Current occupation: On disability because of lower back pain and scoliosis Physical Exam Const: COMMON NORMALS: no acute distress, patient oriented x3 and healthy appearing HENMT: COMMON NORMALS: normocephalic and atraumatic HEAD & SCALP: nor mocephalic and atraumatic Eye: COMMON NORMALS: Equal, round and reactive pupils present and EOMs intact bilaterally PUPIL: Yes Equal, round and reactive pupils present Neck/C-Spine: COMMON NORMALS: full ROM and supple Chest: COMMONS NORMALS: normal inspection of the chest and normal palpation of entire chest wall Resp: COMMON NORMALS: normal respiratory effort, No retractions, No use of accessory muscles and clear to auscultation bilaterally AUSCULTATION: clear to auscultation bilaterally Cardio: COMMON NORMALS: regular rate, regular rhythm and No murmurs present (Cardio) RATE: regular rate RHYTHM: regular rhythm GI: COMMON NORMALS: Normal to inspection, nondistended, normoactive bowel sounds present, Soft to palpation and no masses PALPATION: Yes Soft to palpation OTHER: Epigastric tenderness Extremity: COMMON NORMALS: normal to inspection and full ROM Neuro: COMMON NORMALS: patient oriented x3, moves all extremities and no focal motor deficits Psych: COMMON NORMALS: mental status grossly normal, Normal thought process present and cooperative THOUGHT PROCESS: Normal thought process present Skin: COMMON NORMALS: no rashes or lesions noted and no wounds GENERAL SKIN EXAM: no rashes or lesions noted Course Vital Signs: Vital signs: Vital Signs Temperature 98.8 F 08/06/21 00:06 Pulse Rate 58 L 08/06/21 02:37 Respiratory Rate 18 08/06/21 02:37 Blood Pressure 144/82 08/06/21 02:37 Pulse Oximetry 97 08/06/21 02:37 MDM - Abdominal Pain Medical Decision Making Patient presents here with pancreatitis likely alcohol induced CT shows no other findings signs of pancreatitis pain is improved here spoke to hospitalist will admit for his pancreatitis. Lab Data : 08/06/21 00:19 08/06/21 00:19 Labs/Radiology: Radiology Impressions Abdomen/Pelvis CT 08/06/21 00:13 IMPRESSION: 1. Acute pancreatitis without necrosis. 2. 4 mm nonobstructing left renal pelvis stone. COMMENTS: Consistent with the [employer]'s Incidental Findings Committee white paper (J Am Rita Radiol 2018): Any incidental renal lesion less than 1 cm or classified as too small to characterize, or any incidental cystic renal lesion characterized as simple-appearing, is likely benign. No follow-up imaging is recommended for these lesions per consensus recommendations based on imaging criteria. Laboratory Results WBC 16.9 10^3/uL (4.0-10.0) H 08/06/21 00:19 RBC 4.71 10^6/uL (4.1-5.3) 08/06/21 00:19 Hgb 16.0 g/dL (11.7-16.6) 08/06/21 00:19 Hct 46.2 % (42.0-52.0) 08/06/21 00:19 MCV 98.1 fl (80-94) H 08/06/21 00:19 MCH 34.0 pg (28.0-34.0) 08/06/21 00:19 MCHC 34.6 g/dL (30.0-36.0) 08/06/21 00:19 RDW 14.5 % (12.1-15.1) 08/06/21 00:19 Plt Count 228 10^3/cmm (130-400) 08/06/21 00:19 MPV 9.6 fL (7.4-10.4) 08/06/21 00:19 Neut % (Auto) 69.4 % 08/06/21 00:19 Lymph % (Auto) 17.5 % 08/06/21 00:19 [place] % (Auto) 10.9 % 08/06/21 00:19 Eos % (Auto) 1.1 % 08/06/21 00:19 Baso % (Auto) 0.7 % 08/06/21 00:19 Neut # (Auto) 11.74 10^3/uL (1.8-7.7) H 08/06/21 00:19 Lymph # (Auto) 3.0 10^3/uL (0.8-4.8) 08/06/21 00:19 [place] # (Auto) 1.9 10^3/uL (0.2-0.9) H 08/06/21 00:19 Eos # (Auto) 0.2 10^3/uL (0.0-0.8) 08/06/21 00:19 Baso # (Auto) 0.1 10^3/uL (0.0-0.1) 08/06/21 00:19 Nucleated RBC % (auto) 0 % 08/06/21 00:19 Nucleated RBCs # 0.0 /100WBC 08/06/21 00:19 Sodium 135 mmol/L (136-145) L 08/06/21 00:19 Potassium 3.3 mmol/L (3.5-5.1) L 08/06/21 00:19 Chloride 100 mmol/L (98-107) 08/06/21 00:19 Carbon Dioxide 22 mmol/L (22-29) 08/06/21 00:19 Anion Gap 16.3 (5-19) 08/06/21 00:19 BUN 20 mg/dL (8-23) 08/06/21 00:19 Creatinine 0.7 mg/dL (0.7-1.2) 08/06/21 00:19 GFR Calculation 111.8 mL/min (90-130) 08/06/21 00:19 Glucose 91 mg/dL (65-115) 08/06/21 00:19 Calculated Osmolality 282 mOsm/kg (285-295) L 08/06/21 00:19 Calcium 9.4 mg/dL (8.5-10.5) 08/06/21 00:19 Total Bilirubin 0.6 mg/dL (0.15-1.2) 08/06/21 00:19 AST 15 U/L (0-40) 08/06/21 00:19 ALT 12 U/L (0-41) 08/06/21 00:19 Alkaline Phosphatase 80 IU/L (40-130) 08/06/21 00:19 Total Protein 6.6 g/dL (6.6-8.7) 08/06/21 00:19 Albumin 4.3 g/dL (3.5-5.2) 08/06/21 00:19 Globulin 2.3 g/dL (1.3-4.6) 08/06/21 00:19 Lipase 1754 U/L (13-60) H 08/06/21 00:19 Ethyl Alcohol < 10 mg/dL (0-10) 08/06/21 00:19 EKG Data EKG 1: I personally reviewed and interpreted this EKG as follows: EKG interpretation date: 08/06/21 EKG interpretation time: 00:19 Interpretation: nsr hr [address] or t wave abnormalities qrs 94 qtc 415 Discharge Plan Discharge Patient Disposition: Admitted As Inpatient Clinical Impression: Pancreatitis Qualifiers: Chronicity: acute Pancreatitis type: alcohol induced Acute pancreatitis complication: unspecified Qualified Code(s): K85.20 - Alcohol induced acute pancreatitis without necrosis or infection Condition: Stable Coding Level of Care Code ED Respiratory Care Specialist for g Fwd Exam Comprehensive
[2021-08-06] MEDS: sodium chloride 0.9% 1,000 ML 999 ML IV (00:21)
[2021-08-06 00:32] LABS: Basophils # 0.1 10^3/uL (0.0-0.1); Basophils % 0.7 %; Eosinophils # 0.2 10^3/uL (0.0-0.8); Eosinophils % 1.1 %; Hematocrit 46.2 % (42.0-52.0); Lymphocytes % 17.5 %; Mean Corpuscular HGB Conc 34.6 g/dL (30.0-36.0); Mean Corpuscular Volume 98.1 fl (80-94); Mean Platelet Volume 9.6 fL (7.4-10.4); Monocytes # 1.9 10^3/uL (0.2-0.9); Monocytes % 10.9 %; Neutrophils # 11.74 10^3/uL (1.8-7.7); Neutrophils % 69.4 %; Nucleated Red Blood Cells % 0 %; Platelet Count 228 10^3/cmm (130-400); Red Blood Count 4.71 10^6/uL (4.1-5.3); Red Cell Distribution Width 14.5 % (12.1-15.1); White Blood Count 16.9 10^3/uL (4.0-10.0)
[2021-08-06 00:50] LABS: Alanine Aminotransferase 12 U/L (0-41); Albumin Level 4.3 g/dL (3.5-5.2); Alkaline Phosphatase 80 IU/L (40-130); Anion Gap 16.3 (5-19); Aspartate Amino Transferase 15 U/L (0-40); Blood Urea Nitrogen 20 mg/dL (8-23); Calcium 9.4 mg/dL (8.5-10.5); Carbon Dioxide 22 mmol/L (22-29); Chloride 100 mmol/L (98-107); Globulin 2.3 g/dL (1.3-4.6); Glomerular Filtration Rate 111.8 mL/min (90-130); Glucose 91 mg/dL (65-115); Osmolality Calculated 282 mOsm/kg (285-295); Potassium 3.3 mmol/L (3.5-5.1); Sodium 135 mmol/L (136-145); Total Bilirubin 0.6 mg/dL (0.15-1.2); Total Protein 6.6 g/dL (6.6-8.7)
[2021-08-06] MEDS: HYDROmorphone 1 mg/mL INJ 1 mL IVP (00:52)
[2021-08-06 00:57] LABS: Alcohol Level < 10 mg/dL (0-10); Lipase 1754 U/L (13-60)
[2021-08-06] MEDS: iohexol 300 mg/mL 100 mL Btl IV (01:09)
[2021-08-06] MEDS: ondansetron 2 mg/ML SDV 2 mL 4 MG IVP ×5 (01:26→22:47)
[2021-08-06] MEDS: LORazepam 2 mg/mL INJ 1 mL 1 MG IVP (02:20)
--- NOTE | 2021-08-06 03:16 | P.HP_ITS ---
Providers/Chief Complaint Admitting Physician: Dior Bermeo DO Primary Care Provider: HARIS Salter Chief Complaint: ABD PAIN History of Present Illness The patient is a 71-year-old male who presented to [place] abdominal pain. In the emergency department he was found to have an elevated lipase and CT of the abdomen and pelvis corroborates this as well. Patient has been hospitalized on numerous occasions for alcohol-induced pancreatitis in the past. He states that this episode started proximally On August 05, 2021. It was of sudden onset in the subxiphoid region. He describe s it as aching sensation. Since the time of onset's been intermittent. As worst rated 9 out of 10 currently rates 3 out of 10. He took tramadol at home which do not improve the pain. He denies any frequent NSAID use. He denies fever, rigors, vomiting, cough. He admits to onset of nausea. Patient has known history of alcohol abuse and towards the end of my encounter with him he becomes quite argumentative and minimize the amount of alcohol he consumes as he currently states he only drinks 6 ounces of alcohol daily to help him sleep. He denies diarrhea, melena, hematochezia. He presents for further evaluation Review of Systems General: Reports: 10 or more systems reviewed and unremarkable except in HPI and below Medications/Allergies Home Medications Medication Instructions Recorded Confirmed Last Taken Type bismuth subsalicylate 525 mg/15 mL See Rx Instructions .ROUTE .COMPLEX 07/08/19 07/13/20 01/14/20 23:30 History oral suspension (Kaopectate Ex Str (bismuth ss)) ondansetron HCl 4 mg tablet 4 mg PO Q6H PRN 01/15/20 07/13/20 01/15/20 01:00 History pediatric multivitamin no.30 1 tab PO DAILY 01/15/20 07/13/20 Unknown History (Gummies Children Multivitamin) amlodipine 10 mg tablet 10 mg PO DAILY #30 tab 01/17/20 07/13/20 Unknown Rx ciprofloxacin HCl 500 mg tablet 500 mg PO Q12H #10 tab 01/17/20 07/13/20 Unknown Rx folic acid 1 mg tablet 1 mg PO DAILY #15 tab 01/17/20 07/13/20 Unknown Rx tramadol 50 mg tablet 50 mg PO Q6H PRN #10 tab 01/17/20 07/13/20 Unknown Rx Allergies Allergy/AdvReac Type Severity Reaction Status Date / Time Penicillins Allergy becomes Verified 07/13/20 13:11 overheated and sweating PFSH Acute PFSH: Medical History Alcohol abuse Bipolar 1 disorder Insomnia Smoker Surgical History No pertinent past surgical history Family History Denies family history of Diabetes Clotting disorder Dementia Chronic kidney disease (CKD) Social History Smoking and tobacco status: current every day smoker cigarettes Packs smoked per day: 3 Years cigarettes smoked: 45 Alcohol intake: current Alcohol intake frequency: 3 or more drinks per day Alcohol type: hard liquor Household members: spouse Housing: House Marital status: Current occupation: On disability because of lower back pain and scoliosis Vitals/I&O/Wt Last Vital Signs Temp 98.8 F 08/06/21 00:06 Pulse 68 08/06/21 02:55 Resp 20 H 08/06/21 02:55 BP 144/82 08/06/21 02:55 Pulse Ox 98 08/06/21 02:55 Weight last 48 hrs Weight 70.307 kg Physical Exam Narrative: General: -Alert -No acute distress -No dyspnea -No tachypnea Head: -Atraumatic -Normocephalic Eyes: -Pupils equally round and reactive to light and accommodation -Extraocular muscles intact Neurological: -Cranial nerves II-XII intact Neck: -No jugular venous distention -No thyromegaly -No cervical lymphadenopathy Heart: -Regular rate -Regular rhythm -No murmurs -No gallops -No rubs Lungs: -No wheeze -No rhonchi -No rales ? Abdomen: -Normal bowel sounds in all four quadrants -No rebound -No guarding -No tenderness Extremities: -2/4 pulse in all four extremities -No clubbing -No cyanosis -No edema -No calf tenderness present bilaterally -Negative Kevin?s sign bilaterally Musculoskeletal: -5/5 bilateral upper extremity strength -5/5 bilateral lower extremity strength -Sensorium of bilateral upper extremities are equal and intact -Sensorium of bilateral lower extremities are equal and intact ? Additional Details / Additional Findings / Exceptions / Miscellaneous: Data : 08/06/21 00:19 08/06/21 00:19 A&P Assessment and plan (1) HTN (hypertension): Status: Acute Plan Acute pancreatitis, alcohol induced. Patient has a history of past and ongoing alcohol abuse. Will monitor lipase levels intermittently. Nothing by mouth. IV normal saline 100 ML's per hour Alcohol abuse. Seizure precautions. IV when necessary Ativan on a sliding scale. I requested case management eval with the patient. The patient minimizes the amount of alcohol he consumes and he feels as though his alcohol abuse is not an issue however he appears to neglect the effect that it has on his who does not communicate but strongly implies that his alcohol abuse has had an effect on her life Hypokalemia. Will monitor potassium level intermittently and supplements necessary Bipolar disorder. Patient should be referred to psychiatry upon discharge BPH. PSA level pending Nephrolithiasis, asymptomatic Macrocytosis, likely sequelae of alcohol abuse. Check TSH, free T4, B12, folate level COPD. Chest x-ray?2 view pending Hyperlipidemia Hypertension Smoker. The patient becomes regarding smoking cessation DVT Proflex is. Bilateral SCD Attestations Medical Necessity Statement*: Patient's hospitalization is anticipated to be greater than 2 midnights for his pancreatitis along with anticipate alcohol withdrawal Coding Level of Care Code Acute Chlorine Plant Operator for g Hanhd Diagnoses HTN (hypertension) I10
--- NOTE | 2021-08-06 03:20 | XRR_ITS ---
PROCEDURE INFORMATION: Exam: XR Chest Exam date and time: 08/06/2021 5:33 AM Age: 71 years old Clinical indication: Patient HX: Cough. TECHNIQUE: Imaging protocol: XR of the chest. Views: 2 views. COMPARISON: CR XR chest 1V portable [id number] 01/16/2020 8:56 AM FINDINGS: Lungs: Unremarkable. No consolidation. Pleural spaces: Unremarkable. No pleural effusion. No pneumothorax. Heart/Mediastinum: Unremarkable. No cardiomegaly. Bones/joints: Unremarkable. XR/XR chest 2V* [id number] IMPRESSION: No acute disease.
[2021-08-06] MEDS: sodium chloride 0.9% 1,000 ML 100 ML IV ×2 (03:36→11:02)
[2021-08-06] MEDS: potassium chloride ER 20 mEq Tablet 40 MEQ PO (03:37)
[2021-08-06 05:21] LABS: Basophils # 0.1 10^3/uL (0.0-0.1); Basophils % 0.5 %; Eosinophils # 0.1 10^3/uL (0.0-0.8); Eosinophils % 0.8 %; Hematocrit 45.3 % (42.0-52.0); Hemoglobin 15.4 g/dL (11.7-16.6); Lymphocytes % 13.5 %; Mean Platelet Volume 9.9 fL (7.4-10.4); Monocytes # 1.4 10^3/uL (0.2-0.9); Monocytes % 9.2 %; Neutrophils # 11.38 10^3/uL (1.8-7.7); Neutrophils % 75.5 %; Nucleated Red Blood Cells % 0 %; Platelet Count 227 10^3/cmm (130-400); Red Blood Count 4.53 10^6/uL (4.1-5.3); Red Cell Distribution Width 14.6 % (12.1-15.1); White Blood Count 15.1 10^3/uL (4.0-10.0)
[2021-08-06] MEDS: HYDROcodone-acetaminophen 5-325 mg Tablet 1 TAB PO ×4 (05:28→22:45)
[2021-08-06 05:49] LABS: Free T4 Free Thyroxine 1.11 ng/dL (0.82-1.77); Prostate Specific Antigen Scr 3.33 ng/mL (0-4); Thyroid Stimulating Hormone 2.93 uIU/mL (0.27-4.20)
[2021-08-06 05:57] LABS: Lipase 1156 U/L (13-60)
[2021-08-06 06:22] LABS: Vitamin B12 357 pg/mL (232-1245)
--- NOTE | 2021-08-06 09:14 | P.PN_ITS ---
Subjective Subjective: 71 y/o M admitted for acute pancreatitis with electrolyte abnormalities. States that he continue to have pain this morning. He continues NPO status this morning. Endorses continued abdominal pain and nausea. he is requesting medication for both regularly. Reports last BM yesterday and was nor mal. He denies flatus today. Using bedside urinal to void. Denies other concerns today. Medications: Reviewed: Yes Vitals/I&O/Wt Last Vital Signs Temp 97.6 F 08/06/21 07:20 Pulse 58 L 08/06/21 07:20 Resp 18 08/06/21 07:20 BP 147/68 08/06/21 07:20 Pulse Ox 92 08/06/21 07:20 08/05/21 08/06/21 08/06/21 22:59 06:59 14:59 Intake Total 1000 / 1000 Output Total 0 / 0 Balance 1000 / 1000 Weight last 48 hrs Weight 155 lb Physical Exam Const: COMMON NORMALS: no acute distress, patient oriented x3 and alert OTHER: Appears uncomfortable. HENMT: COMMON NORMALS: normocephalic and atraumatic HEAD & SCALP: normocephalic and atraumatic MOUTH: Abnormal oral and palatal mucosa present (Mucous membranes dry. ) Eye: COMMON NORMALS: Equal, round and reactive pupils present and EOMs intact bilaterally PUPIL: Yes Equal, round and reactive pupils present Neck/C-Spine: COMMON NORMALS: no lymphadenopathy, supple and no JVD Resp: COMMON NORMALS: normal respiratory effort and clear to auscultation bilaterally EFFORT & INSPECTION: Yes able to speak in complete sentences and No tachypneic AUSCULTATION: clear to auscultation bilaterally, no rales, no rhonchi and no wheezes Cardio: COMMON NORMALS: no JVD, regular rate, regular rhythm, S1 normal heart sound present and S2 normal heart sound present RATE: regular rate RHYTHM: regular rhythm HEART SOUNDS: S1 normal heart sound present, S2 normal heart sound present, no click, no gallops, no murmurs and no rubs GI: COMMON NORMALS: Soft to palpation PALPATION: Yes Soft to palpation and Yes Tenderness to palpation present (GI) (epigastric region.) Details: LUQ and R UQ : COMMON NORMALS: Yes no CVA tenderness BLADDER/KIDNEY EXAM: Yes no CVA tenderness Back/Pelvis: COMMON NORMALS: no CVA tenderness Extremity: COMMON NORMALS: normal to inspection and full ROM GENERAL: No clubbing, No cyanosis and No edema Neuro: COMMON NORMALS: patient oriented x3 and CN's II-XII intact bilaterally SENSORIUM/ORIENTATION: Yes alert Psych: COMMON NORMALS: Normal thought process present and cooperative THOUGHT PROCESS: Normal thought process present Skin: COMMON NORMALS: no rashes or lesions noted GENERAL SKIN EXAM: no rashes or lesions noted Data : 08/06/21 04:43 08/06/21 00:19 Attestation for Other Data: I personally reviewed and interpreted the following: A&P Assessment and plan (1) Pancreatitis: Status: Acute Qualifiers: Acute pancreatitis complication: unspecified Chronicity: acute Pancreatitis type: alcohol induced Qualified Code(s): K85.20 - Alcohol induced acute pancreatitis without necrosis or infection (2) Alcohol abuse: Status: Acute (3) HTN (hypertension): Status: Acute (4) Smoker: Status: Acute (5) Hypokalemia: Status: Acute (6) Nicotine dependence, cigarettes, with other nicotine-induced disorders: Status: Acute (7) Leukocytosis: Status: Acute Plan Acute Pancreatitis, EtOH induced. - Vitals stable. Continued pain. - IV Dilaudid q6h. Continue PO hydrocodone as needed. - Zofran as needed for nausea. - Increase IVF to 200ml/hr NS. - Recheck BMP this morning. - Daily labs. Alcohol abuse.? - CIWA assessments and seizure precautions.? - Ativan protocol as needed. - Case management assessment is pending. Hypokalemia.? - Recheck BMP, daily labs. - Did receive K PO last night. - Will give 20K IV today. - Monitor and replace as needed. Bipolar disorder.? - Will discuss Psychiatry referral on discharge. BPH - Stable. - PSA level normal. - Monitor for symptoms at this time. - Restart meds when able to resume PO intake. Macrocytosis - Likely EtOH induced. - TSH, T4, B12, folate all normal. - Continue daily multivitamin. COPD - CXR normal. - Will monitor at this time. - Recommended smoking cessation. Hypertension - Chronic. Elevated. - Likely worsened at this time due to pain. - Continue to monitor. Will start medications if indicated. Nicotine dependence, cigarettes - Recommended smoking cessation. Can provide NRT if needed. GI PPx: Protonix DVT PPx: SCD's. O2: no PCP: Lisbeth Gimenez (chart). Attestations Medical Necessity Statement*: Patient's hospitalization is anticipated to be greater than 2 midnights to manage acute pancreatitis and concern for acute al cohol withdrawal, and seizure monitoring/management. Time Spent in Patient Care: 16 - 35 minutes (>than 50% of time spent in counselling and/or direct pt care on unit) . Coding Level of Care Code Acute Ham Trimmer for Ciarag Hanhd Diagnoses Pancreatitis K85.20 Acute pancreatitis complication: unspecified Chronicity: acute Pancreatitis type: alcohol induced Alcohol abuse F10.10 HTN (hypertension) I10 Smoker F17.200 Hypokalemia E87.6 Nicotine dependence, cigarettes, with other nicotine-induced disorders F17.218 Leukocytosis D72.829
[2021-08-06 10:25] LABS: Anion Gap 15.3 (5-19); Blood Urea Nitrogen 18 mg/dL (8-23); Calcium 9.1 mg/dL (8.5-10.5); Carbon Dioxide 24 mmol/L (22-29); Chloride 100 mmol/L (98-107); Glomerular Filtration Rate 111.8 mL/min (90-130); Glucose 96 mg/dL (65-115); Osmolality Calculated 282 mOsm/kg (285-295); Potassium 4.3 mmol/L (3.5-5.1); Sodium 135 mmol/L (136-145)
[2021-08-06] MEDS: lidocaine 1% 5 ML in potassium chloride premix 100 ML 50 ML IV (11:01)
[2021-08-06 11:03] LABS: Glucose Point of Care 91 mg/dL (70-110)
[2021-08-06] MEDS: HYDROmorphone 1 mg/mL INJ 1 mL 0.5 MG IVP (12:48)
[2021-08-06] MEDS: famotidine 20 mg/2 mL INJ IVP (15:05)
[2021-08-06] MEDS: hyDRALAzine 20 mg/mL INJ 1 mL 10 MG IVP ×2 (16:34→22:49)
[2021-08-06] MEDS: LORazepam 2 mg/mL INJ 1 mL IVP (16:42)
[2021-08-06] MEDS: sodium chloride 0.9% 1,000 ML 200 ML IV ×2 (17:57→22:48)
[2021-08-07] MEDS: fluticasone nasal spray 16gm Btl 2 SPRAY NASAL (02:03)
[2021-08-07] MEDS: sodium chloride 0.9% 1,000 ML 200 ML IV (03:33)
[2021-08-07] MEDS: famotidine 20 mg/2 mL INJ IVP (03:36)
[2021-08-07] MEDS: hyDRALAzine 20 mg/mL INJ 1 mL 10 MG IVP (03:36)
[2021-08-07 03:47] VITALS: BP 137/53; PULSE 65; RESP 16; TEMP 36.8; O2SAT 92
[2021-08-07 04:52] LABS: Basophils # 0.1 10^3/uL (0.0-0.1); Basophils % 0.5 %; Eosinophils # 0.3 10^3/uL (0.0-0.8); Hematocrit 45.4 % (42.0-52.0); Hemoglobin 15.1 g/dL (11.7-16.6); Lymphocytes # 2.7 10^3/uL (0.8-4.8); Lymphocytes % 18.4 %; Mean Corpuscular HGB Conc 33.3 g/dL (30.0-36.0); Mean Corpuscular Hemoglobin 33.2 pg (28.0-34.0); Mean Corpuscular Volume 99.8 fl (80-94); Mean Platelet Volume 9.6 fL (7.4-10.4); Monocytes # 1.5 10^3/uL (0.2-0.9); Monocytes % 10.6 %; Neutrophils % 68.1 %; Nucleated Red Blood Cells % 0 %; Platelet Count 201 10^3/cmm (130-400); Red Blood Count 4.55 10^6/uL (4.1-5.3); Red Cell Distribution Width 14.6 % (12.1-15.1); White Blood Count 14.4 10^3/uL (4.0-10.0)
[2021-08-07 05:18] LABS: Alanine Aminotransferase 9 U/L (0-41); Albumin Level 3.3 g/dL (3.5-5.2); Alkaline Phosphatase 70 IU/L (40-130); Anion Gap 18.1 (5-19); Aspartate Amino Transferase 14 U/L (0-40); Blood Urea Nitrogen 7 mg/dL (8-23); C Reactive Protein 45.9 mg/L (0.0-4.9); Calcium 8.7 mg/dL (8.5-10.5); Carbon Dioxide 18 mmol/L (22-29); Chloride 108 mmol/L (98-107); Globulin 2.3 g/dL (1.3-4.6); Glomerular Filtration Rate 133.6 mL/min (90-130); Glucose 94 mg/dL (65-115); Osmolality Calculated 288 mOsm/kg (285-295); Potassium 4.1 mmol/L (3.5-5.1); Sodium 140 mmol/L (136-145); Total Bilirubin 0.5 mg/dL (0.15-1.2); Total Protein 5.6 g/dL (6.6-8.7)
[2021-08-07 07:38] VITALS: BP 145/68; PULSE 65; RESP 13; TEMP 36.6; O2SAT 94
[2021-08-07] MEDS: ondansetron 2 mg/ML SDV 2 mL 4 MG IVP (10:53)
[2021-08-07 11:49] VITALS: BP 145/68; PULSE 65; RESP 13; TEMP 36.6; O2SAT 94
--- NOTE | 2021-08-07 12:22 | PM.PN ---
Subjective Subjective: 71 y/o M admitted for acute pancreatitis with electrolyte abnormalities. Reports feeling better today. Denies abdominal pain at this time. states that he did not rest well last night. He is wanting to eat something and feels that he wants to go home today if he can eat and drink well. Medications: Reviewed: Yes Vitals/I&O/Wt Last Vital Signs Temp 97.8 F 08/07/21 11:49 Pulse 65 08/07/21 11:49 Resp 13 08/07/21 11:49 BP 145/68 08/07/21 11:49 Pulse Ox 94 08/07/21 11:49 08/06/21 08/07/21 08/07/21 22:59 06:59 14:59 Intake Total 1603.333 / 2818.333 950 / 3768.333 1360 / 1360 Output Total 300 / 850 750 / 750 Balance 1303.333 / 1968.333 950 / 2918.333 610 / 610 Weight last 48 hrs Weight 155 lb Physical Exam Const: COMMON NORMALS: no acute distress, patient oriented x3 and alert OTHER: Appears uncomfortable. HENMT: COMMON NORMALS: normocephalic and atraumatic HEAD & SCALP: normocephalic and atraumatic MOUTH: Abnormal oral and palatal mucosa present (Mucous membranes dry. ) Eye: COMMON NORMALS: Equal, round and reactive pupils present and EOMs intact bilaterally PUPIL: Yes Equal, round and reactive pupils present Neck/C-Spine: COMMON NORMALS: no lymphadenopathy, supple and no JVD Resp: COMMON NORMALS: normal respiratory effort and clear to auscultation bilaterally EFFORT & INSPECTION: Yes able to speak in complete sentences and No tachypneic AUSCULTATION: clear to auscultation bilaterally, no rales, no rhonchi and no wheezes Cardio: COMMON NORMALS: no JVD, regular rate, regular rhythm, S1 normal heart sound present and S2 normal heart sound present RATE: regular rate RHYTHM: regular rhythm HEART SOUNDS: S1 normal heart sound present, S2 normal heart sound present, no click, no gallops, no murmurs and no rubs GI: COMMON NORMALS: Normal to inspection, nondistended, normoactive bowel sounds present and Soft to palpation PALPATION: Yes Soft to palpation and No Tenderness to palpation present (GI) : COMMON NORMALS: Yes no CVA tenderness BLADDER/KIDNEY EXAM: Yes no CVA tenderness Back/Pelvis: COMMON NORMALS: no CVA tenderness Extremity: COMMON NORMALS: normal to inspection and full ROM GENERAL: No clubbing, No cyanosis and No edema Neuro: COMMON NORMALS: patient oriented x3 and CN's II-XII intact bilaterally SENSORIUM/ORIENTATION: Yes alert Psych: COMMON NORMALS: Normal thought process present and cooperative THOUGHT PROCESS: Normal thought process present Skin: COMMON NORMALS: no rashes or lesions noted GENERAL SKIN EXAM: no rashes or lesions noted Data : 08/07/21 04:30 08/07/21 04:30 A&P Assessment and plan (1) Pancreatitis: Status: Acute Qualifiers: Acute pancreatitis complication: unspecified Chronicity: acute Pancreatitis type: alcohol induced Qualified Code(s): K85.20 - Alcohol induced acute pancreatitis without necrosis or infection (2) Alcohol abuse: Status: Acute (3) HTN (hypertension): Status: Acute (4) Smoker: Status: Acute (5) Hypokalemia: Status: Acute (6) Nicotine dependence, cigarettes, with other nicotine-induced disorders: Status: Acute (7) Leukocytosis: Status: Acute Plan Reports improvement in pain and appetite. Denies N/V. Feels that he would like to go home today. Will start on Soft GI diet and medications PO today. Decrease IVF's. CIWA scoring normal at this time. Na+, K+ levels improved to normal range. WBC count improving. Discussed that if patient is able to tolerate diet and PO medications, may be able to discharge later today. Did receive 2 doses of hydralazine for Elevated BP. Stable at this time. Fluids reduced. Will Reassess this afternoon. GI PPx: Protonix DVT PPx: SCD's. O2: no PCP: Lisbeth Gimenez (chart). Attestations Medical Necessity Statement*: Patient's hospitalization is anticipated to be greater than 2 midnights to manage acute pancreatitis and concern for acute alcohol withdrawal, and seizure monitoring/management. Time Spent in Patient Care: 16 - 35 minutes (>than 50% of time spent in counselling and/or direct pt care on unit). Coding Level of Care Code Acute Tapering Machine Operator for Chey Howe Diagnoses Pancreatitis K85.20 Acute pancreatitis complication: unspecified Chronicity: acute Pancreatitis type: alcohol induced Alcohol abuse F10.10 HTN (hypertension) I10 Smoker F17.200 Hypokalemia E87.6 Nicotine dependence, cigarettes, with other nicotine-induced disorders F17.218 Leukocytosis D72.829
--- NOTE | 2021-08-07 12:32 | P.DS_ITS ---
Discharge Providers Date of Admission: 08/06/21 02:28 Date of Discharge: August 07, 2021 Attending Provider at Admission: Dior Bermeo DO Attending Provider at Discharge: Manan Acosta DO Primary Care Provider: HARIS Salter Diagnoses at Discharge Discharge Diagnosis (1) Pancreatitis: Status: Acute Qualifiers: Acute pancreatitis complication: unspecified Chronicity: acute Pancreatitis type: alcohol induced Qualified Code(s): K85.20 - Alcohol induced acute pancreatitis without necrosis or infection (2) Alcohol abuse: Status: Acute (3) HTN (hypertension): Status: Acute (4) Smoker: Status: Acute (5) Hypokalemia: Status: Acute (6) Nicotine dependence, cigarettes, with other nicotine-induced disorders: Status: Acute (7) Leukocytosis: Status: Acute Reason for Visit Reason for Visit: ABD PAIN, pancreatitis Hospital Course Hospital Course 71 y/o M presented to ER with c/o worsening abdominal pain for the last 2 days. On history is was noted that he uses EtOH regularly and has been admitted with several bouts of pancreatitis. He was found to have and elevated lipase and CT findings consistent with pancreatitis. He was started on IV/oral pain medication, IVF's, and placed NPO. His labs demonstrated a low K+, Na+ and macr ocytosis. These were replaced and corrected. He was started on CIWA protocol and ativan titration as needed for withdrawal. He had improvement in his symptoms by day 2 of hospital stay and was able to tolerate oral intake without problem. He did continue to c/o nausea with pain medication, but this was well controlled with Zofran. He was discharged in stable and improved condition with oral pain meds and zofran. Recommended that patient abstain from further EtOH intake due to the burden it is causing on his health. also recommended smoking cessation at discharge. He will follow up with his PCP to discuss further. Physical Exam Const: COMMON NORMALS: no acute distress, patient oriented x3 and alert OTHER: Appears uncomfortable. HENMT: COMMON NORMALS: normocephalic and atraumatic HEAD & SCALP: normocephalic and atraumatic MOUTH: Abnormal oral and palatal mucosa present (Mucous membranes dry. ) Eye: COMMON NORMALS: Equal, round and reactive pupils present and EOMs intact bilaterally PUPIL: Yes Equal, round and reactive pupils present Neck/C-Spine: COMMON NORMALS: no lymphadenopathy, supple and no JVD Resp: COMMON NORMALS: normal respiratory effort and clear to auscultation bilaterally EFFORT & INSPECTION: Yes able to speak in complete sentences and No tachypneic AUSCULTATION: clear to auscultation bilaterally, no rales, no rhonchi and no wheezes Cardio: COMMON NORMALS: no JVD, regular rate, regular rhythm, S1 normal heart sound present and S2 normal heart sound present RATE: regular rate RHYTHM: regular rhythm HEART SOUNDS: S1 normal heart sound present, S2 normal heart sound present, no click, no gallops, no murmurs and no rubs GI: COMMON NORMALS: Normal to inspection, nondistended, normoactive bowel sounds present and Soft to palpation PALPATION: Yes Soft to palpation and No Tenderness to palpation present (GI) : COMMON NORMALS: Yes no CVA tenderness BLADDER/KIDNEY EXAM: Yes no CVA tenderness Back/Pelvis: COMMON NORMALS: no CVA tenderness Extremity: COMMON NORMALS: normal to inspection and full ROM GENERAL: No clubbing, No cyanosis and No edema Neuro: COMMON NORMALS: patient oriented x3 and CN's II-XII intact bilaterally SENSORIUM/ORIENTATION: Yes alert Psych: COMMON NORMALS: Normal thought process present and cooperative THOUGHT PROCESS: Normal thought process present Skin: COMMON NORMALS: no rashes or lesions noted GENERAL SKIN EXAM: no rashes or lesions noted Discharge Data Studies Completed and Pending Completed Studies During Hospitalization Category Date Time Status CT abdomen pelvis w con* [id number] Urgent Cat Scan 08/06/21 00:13 Completed XR chest 2V* [id number] Routine Exams 08/06/21 03:20 Completed Radiology Impressions Abdomen/Pelvis CT 08/06/21 00:13 IMPRESSION: 1. Acute pancreatitis without necrosis. 2. 4 mm nonobstructing left renal pelvis stone. COMMENTS: Consistent with the [employer]'s Incidental Findings Committee white paper (J Am Rita Radiol 2018): Any incidental renal lesion less than 1 cm or classified as too small to characterize, or any incidental cystic renal lesion characterized as simple-appearing, is likely benign. No follow-up imaging is recommended for these lesions per consensus recommendations based on imaging criteria. Chest X-Ray 08/06/21 03:20 IMPRESSION: No acute disease. Laboratory Results WBC 14.4 10^3/uL (4.0-10.0) H 08/07/21 04:30 RBC 4.55 10^6/uL (4.1-5.3) 08/07/21 04:30 Hgb 15.1 g/dL (11.7-16.6) 08/07/21 04:30 Hct 45.4 % (42.0-52.0) 08/07/21 04:30 MCV 99.8 fl (80-94) H 08/07/21 04:30 MCH 33.2 pg (28.0-34.0) 08/07/21 04:30 MCHC 33.3 g/dL (30.0-36.0) 08/07/21 04:30 RDW 14.6 % (12.1-15.1) 08/07/21 04:30 Plt Count 201 10^3/cmm (130-400) 08/07/21 04:30 MPV 9.6 fL (7.4-10.4) 08/07/21 04:30 Neut % (Auto) 68.1 % 08/07/21 04:30 Lymph % (Auto) 18.4 % 08/07/21 04:30 [place] % (Auto) 10.6 % 08/07/21 04:30 Eos % (Auto) 2.0 % 08/07/21 04:30 Baso % (Auto) 0.5 % 08/07/21 04:30 Neut # (Auto) 9.80 10^3/uL (1.8-7.7) H 08/07/21 04:30 Lymph # (Auto) 2.7 10^3/uL (0.8-4.8) 08/07/21 04:30 [place] # (Auto) 1.5 10^3/uL (0.2-0.9) H 08/07/21 04:30 Eos # (Auto) 0.3 10^3/uL (0.0-0.8) 08/07/21 04:30 Baso # (Auto) 0.1 10^3/uL (0.0-0.1) 08/07/21 04:30 Nucleated RBC % (auto) 0 % 08/07/21 04:30 Nucleated RBCs # 0.0 /100WBC 08/07/21 04:30 Sodium 140 mmol/L (136-145) 08/07/21 04:30 Potassium 4.1 mmol/L (3.5-5.1) 08/07/21 04:30 Chloride 108 mmol/L (98-107) H 08/07/21 04:30 Carbon Dioxide 18 mmol/L (22-29) L 08/07/21 04:30 Anion Gap 18.1 (5-19) 08/07/21 04:30 BUN 7 mg/dL (8-23) L 08/07/21 04:30 Creatinine 0.6 mg/dL (0.7-1.2) L 08/07/21 04:30 GFR Calculation 133.6 mL/min (90-130) H 08/07/21 04:30 Glucose 94 mg/dL (65-115) 08/07/21 04:30 POC Glucose 91 mg/dL (70-110) 08/06/21 10:48 Calculated Osmolality 288 mOsm/kg (285-295) 08/07/21 04:30 Calcium 8.7 mg/dL (8.5-10.5) 08/07/21 04:30 Total Bilirubin 0.5 mg/dL (0.15-1.2) 08/07/21 04:30 AST 14 U/L (0-40) 08/07/21 04:30 ALT 9 U/L (0-41) 08/07/21 04:30 Alkaline Phosphatase 70 IU/L (40-130) 08/07/21 04:30 C-Reactive Protein 45.9 mg/L (0.0-4.9) H 08/07/21 04:30 Total Protein 5.6 g/dL (6.6-8.7) L 08/07/21 04:30 Albumin 3.3 g/dL (3.5-5.2) L 08/07/21 04:30 Globulin 2.3 g/dL (1.3-4.6) 08/07/21 04:30 Lipase 1156 U/L (13-60) H 08/06/21 04:43 PSA Screen 3.33 ng/mL (0-4) 08/06/21 04:43 Vitamin B12 357 pg/mL (232-1245) 08/06/21 04:43 Folate 16.0 ng/mL (4.5-32.2) 08/06/21 04:43 TSH 2.93 uIU/mL (0.27-4.20) 08/06/21 04:43 Free T4 1.11 ng/dL (0.82-1.77) 08/06/21 04:43 Ethyl Alcohol < 10 mg/dL (0-10) 08/06/21 00:19 Vitals Last Vital Signs Temp 97.8 F 08/07/21 11:49 Pulse 65 08/07/21 11:49 Resp 13 08/07/21 11:49 BP 145/68 08/07/21 11:49 Pulse Ox 94 08/07/21 11:49 Discharge Plan Discharge Patient Disposition: Home Condition: Stable Prescriptions: New ondansetron HCl 4 mg tablet 4 mg PO Q8H PRN (Reason: nausea and vomiting) 5 Days Qty: 10 0RF hydrocodone-acetaminophen 5-325 mg tablet 1 tab PO Q8H PRN (Reason: pain) Qty: 10 0RF Continued Gummies Children Multivitamin Tablet,Chewable 1 tab PO DAILY 0RF Discharge Orders: Discharge Order (Routine); Ordered 08/07/21 Ordered By: Manan Acosta Referrals: Lisbeth Gimenez TRAVELING BUYER [Primary Care Provider] - Discharge Diet: Usual diet Discharge Activity: Resume usual activity Patient Instructions: Hydrocodone/Acetaminophen (By mouth) (Vicodin, Ladd, Lortab), Ondansetron (By mouth) (Zofran, Zofran ODT, Zuplenz), Hypertension, Pancreatitis (DC), Hypokalemia (DC), Leukocytosis (DC), Opioid Safety Discharge Attestations Time Spent in Discharge Care*: greater than 30 min Specific Discharge Activities: educating patient, discussing with pcp/other providers, documenting/other paperwork and evaluating patient/reviewing data Time Spent in Smoking Cessation: 3 to 10 minutes Status at Discharge: Cognitive status at discharge: cognitively intact , Behavioral status at discharge: cooperative , Quality Metrics Clinical Quality Measures [ No reported AMI, CVA or VTE this stay] Coding Level of Care Code Acute Chg FW DC note Diagnoses Pancreatitis K85.20 Acute pancreatitis complication: unspecified Chronicity: acute Pancreatitis type: alcohol induced Alcohol abuse F10.10 HTN (hypertension) I10 Smoker F17.200 Hypokalemia E87.6 Nicotine dependence, cigarettes, with other nicotine-induced disorders F17.218 Leukocytosis D72.829
== END 2021-08-07 11:51 | disposition home or self-care (01) ==
LOC: ER 02:19 → MEDSURG 03:37
PROVIDERS: Admitting Provider Internal Medicine; Emergency Provider Emergency Medicine; PCP Nurse Practitioner Family; Visit Provider Family Medicine
DX: K85.20 Alcohol induced acute pancreatitis without necrosis or infection (principal); I10 Essential (primary) hypertension; F10.10 Alcohol abuse, uncomplicated; E87.6 Hypokalemia; F17.218 Nicotine dependence, cigarettes, with other nicotine-induced disorders; D72.829 Elevated white blood cell count, unspecified; N40.0 Benign prostatic hyperplasia without lower urinary tract symptoms; D75.89 Other specified diseases of blood and blood-forming organs
CPT/HCPCS: 36415; 36416; 71046; 74177; 80048; 80053; 80307; 82607; 82746; 82962; 83690; 84439; 84443; 85025; 86140; 93005; 96374; 96375; 99285; G0103; G0378; J0360; J1170; J2060; J2405; J3480; J3490; J7030; Q9967

== ENCOUNTER 2021-09-15 09:19 | Observation (INO) | payer MEDICARE, SELFPAY ==
[2021-09-15] VITALS (9 sets, daily range): BP systolic 155–197; BP diastolic 72–79; PULSE 53–61; RESP 14–30; TEMP 36.4–36.8; O2SAT 96–100; BMI 21.6
--- NOTE | 2021-09-15 09:24 | ECG_ITS ---
[facility] Test Date: 2021-09-15 Pat Name: Channing Venegas Department: Room: Gender: Male It Security Consultant: : 1950 Requested By: Beny Martinez Order Number: [id number] Sunshine MD: [place] M.D. Measurements Intervals [place] Rate: 56 P: -58 RI: 155 QRS: 3 QRSD: 88 T: 73 QT: 411 QTc: 397 Interpretive Statements ECTOPIC ATRIAL BRADYCARDIA POSSIBLE RIGHT VENTRICULAR CONDUCTION DELAY [RSR (QR) IN V1/V2] Compared to ECG 08/06/2021 00:19:20 Bradycardia, nonsinus now present Ectopic atrial rhythm no longer present Incomplete right bundle-branch block no longer present Electronically Signed On 09-15-2021 17:18:50 CDT by Sea Belle M.D. [email or web address]
--- NOTE | 2021-09-15 09:24 | ED_ITS ---
HPI - Abdominal Pain General: Chief Complaint: Abdominal Pain Stated Complaint: ABDOMINAL PAIN Time Seen by Provider: 09/15/21 09:20 Source: patient Mode of arrival: ambulatory Limitations: no limitations History of Present Illness: 71-year-old male with a known history of alcohol abuse comes in complaining of epigastric left upper quadrant abdominal pain and cramping with nausea. He has had multiple episodes of pancreatitis in the past denies any hematochezia melena hematemesis cough cramps no chest pain or shortness of breath. He does admit to having been drinking last night and this morning. MD elicited complaint: abdominal pain Pertinent past history: other (Recurrent pancreatitis related to alcoholism) Onset (ago): hour(s) Pain Consistency: constant Location: Epigastric and LUQ Severity: severe Quality: cramping and stabbing Radiation: back Exacerbating factors: nothing Relieving factors: nothing Associated Symptoms: Denies anorexia, belching, bloating, change in bowel habits , change in stool character, chills, coffee ground emesis, constipation, GI cramping, diarrhea, dyspepsia, dysuria, excessive flatus, fever(s), heartburn, hematochezia, hematuria, hematemesis, fecal incontinence, loose stools, melena, nausea, poor appetite, syncope and vomiting Review of Systems Const: Denies: fever(s) or chills ENMT: Denies: throat pain, ear or mastoid pain, nasal discharge or nasal congestion Card: Denies: syncope Resp: Denies: dyspnea, productive cough or non-productive cough GI: Reports: abdominal pain; Denies: nausea, vomiting, hematemesis, coffee ground emesis, heartburn, diar riley, constipation, bloating, GI cramping, belching, excessive flatus, fecal incontinence, change in bowel habits, change in stool character, hematochezia or melena : Denies: flank pain, difficulty urinating, dysuria or hematuria Musc: Reports: back pain Skin/Breast: Denies: rash or pruritus PFSH ED PFSH: Medical History Alcohol abuse Bipolar 1 disorder Insomnia Pancreatitis Smoker Surgical History History of cataract surgery No pertinent past surgical history Family History Other Cancer Psychiatric illness Denies family history of Diabetes Clotting disorder Dementia Chronic kidney disease (CKD) Social History Smoking and tobacco status: current every day smoker cigarettes Packs smoked per day: 3 Years cigarettes smoked: 45 Alcohol intake: current Alcohol intake frequency: 3 or more drinks per day Alcohol type: hard liquor Household members: spouse Housing: House Marital status: Current occupation: On disability because of lower back pain and scoliosis Physical Exam Const: GENERAL APPEARANCE: cooperative and comfortable OR IENTATION/CONSCIOUSNESS: Yes awake, Yes oriented to person, Yes oriented to place and Yes oriented to time HENMT: COMMON NORMALS: normocephalic and atraumatic HEAD & SCALP: normocephalic and atraumatic Neck/C-Spine: COMMON NORMALS: no JVD Resp: COMMON NORMALS: normal respiratory effort, No retractions, No use of accessory muscles and clear to auscultation bilaterally AUSCULTATION: clear to auscultation bilaterally Cardio: COMMON NORMALS: no JVD, regular rate, regular rhythm and No murmurs present (Cardio) RATE: regular rate RHYTHM: regular rhythm GI: PALPATION: Yes Tenderness to palpation present (GI) Details: LUQ and No Guarding due to palpation present (GI) Extremity: COMMON NORMALS: normal to inspection, capillary refill normal, no clubbing, cyanosis or edema, no calf tenderness and no pedal edema Neuro: SENSORIUM/ORIENTATION: Yes oriented to person, Yes oriented to place and Yes oriented to time Skin: COMMON NORMALS: no rashes or lesions noted GENERAL SKIN EXAM: no rashes or lesions noted Course Vital Signs: Vital signs: Vital Signs Temperature 97.6 F 09/15/21 13:36 Pulse Rate 53 L 09/15/21 13:36 Respiratory Rate 14 09/15/21 13:36 Blood Pressure 197/76 09/15/21 13:36 Pulse Oximetry 99 09/15/21 13:36 MDM - Abdominal Pain Medical Decision Making Acute alcohol induced pancreatitis. IV fluids GI rest antiemetics and pain medications. Medical Records I reviewed the patient's medical records. Lab Data I reviewed the patient's lab results. : 09/15/21 11:00 09/15/21 11:00 Labs/Radiology: Laboratory Results WBC 13.8 10^3/uL (4.0-10.0) H 09/15/21 11:00 RBC 4.71 10^6/uL (4.1-5.3) 09/15/21 11:00 Hgb 15.7 g/dL (11.7-16.6) 09/15/21 11:00 Hct 45.1 % (42.0-52.0) 09/15/21 11:00 MCV 95.8 fl (80-94) H 09/15/21 11:00 MCH 33.3 pg (28.0-34.0) 09/15/21 11:00 MCHC 34.8 g/dL (30.0-36.0) 09/15/21 11:00 RDW 14.0 % (12.1-15.1) 09/15/21 11:00 Plt Count 233 10^3/cmm (130-400) 09/15/21 11:00 MPV 9.7 fL (7.4-10.4) 09/15/21 11:00 Neut % (Auto) 77.8 % 09/15/21 11:00 Lymph % (Auto) 13.4 % 09/15/21 11:00 [place] % (Auto) 7.8 % 09/15/21 11:00 Eos % (Auto) 0.2 % 09/15/21 11:00 Baso % (Auto) 0.4 % 09/15/21 11:00 Neut # (Auto) 10.70 10^3/uL (1.8-7.7) H 09/15/21 11:00 Lymph # (Auto) 1.8 10^3/uL (0.8-4.8) 09/15/21 11:00 [place] # (Auto) 1.1 10^3/uL (0.2-0.9) H 09/15/21 11:00 Eos # (Auto) 0.0 10^3/uL (0.0-0.8) 09/15/21 11:00 Baso # (Auto) 0.1 10^3/uL (0.0-0.1) 09/15/21 11:00 Nucleated RBC % (auto) 0 % 09/15/21 11:00 Nucleated RBCs # 0.0 /100WBC 09/15/21 11:00 Sodium 137 mmol/L (136-145) 09/15/21 11:00 Potassium 3.9 mmol/L (3.5-5.1) 09/15/21 11:00 Chloride 102 mmol/L (98-107) 09/15/21 11:00 Carbon Dioxide 19 mmol/L (22-29) L 09/15/21 11:00 Anion Gap 19.9 (5-19) H 09/15/21 11:00 BUN 21 mg/dL (8-23) 09/15/21 11:00 Creatinine 0.7 mg/dL (0.7-1.2) 09/15/21 11:00 GFR Calculation 111.8 mL/min (90-130) 09/15/21 11:00 Glucose 109 mg/dL (65-115) 09/15/21 11:00 Calculated Osmolality 288 mOsm/kg (285-295) 09/15/21 11:00 Calcium 9.2 mg/dL (8.5-10.5) 09/15/21 11:00 Magnesium 1.7 mg/dL (1.7-2.3) 09/15/21 11:00 Total Bilirubin 0.6 mg/dL (0.15-1.2) 09/15/21 11:00 AST 13 U/L (0-40) 09/15/21 11:00 ALT 9 U/L (0-41) 09/15/21 11:00 Alkaline Phosphatase 78 IU/L (40-130) 09/15/21 11:00 Total Protein 7.2 g/dL (6.6-8.7) 09/15/21 11:00 Albumin 4.0 g/dL (3.5-5.2) 09/15/21 11:00 Globulin 3.2 g/dL (1.3-4.6) 09/15/21 11:00 Triglycerides 119 mg/dL (0-150) 09/15/21 11:00 Lipase 945 U/L (13-60) H 09/15/21 11:00 Discharge Plan Discharge Patient Disposition: Admitted As Inpatient Admit Provider: Avery Ness Clinical Impression: Pancreatitis, Alcohol abuse, HTN (hypertension) Condition: Stable Coding Level of Care Code ED Child Welfare Specialist for Chg Carley
[2021-09-15] MEDS: ondansetron 2 mg/ML SDV 2 mL 4 MG IVP (10:14)
[2021-09-15] MEDS: HYDROmorphone 1 mg/mL INJ 1 mL IVP (10:52)
[2021-09-15 11:09] LABS: Basophils # 0.1 10^3/uL (0.0-0.1); Basophils % 0.4 %; Eosinophils % 0.2 %; Hematocrit 45.1 % (42.0-52.0); Hemoglobin 15.7 g/dL (11.7-16.6); Lymphocytes # 1.8 10^3/uL (0.8-4.8); Lymphocytes % 13.4 %; Mean Corpuscular HGB Conc 34.8 g/dL (30.0-36.0); Mean Corpuscular Hemoglobin 33.3 pg (28.0-34.0); Mean Corpuscular Volume 95.8 fl (80-94); Mean Platelet Volume 9.7 fL (7.4-10.4); Monocytes # 1.1 10^3/uL (0.2-0.9); Monocytes % 7.8 %; Neutrophils % 77.8 %; Nucleated Red Blood Cells % 0 %; Platelet Count 233 10^3/cmm (130-400); Red Blood Count 4.71 10^6/uL (4.1-5.3); White Blood Count 13.8 10^3/uL (4.0-10.0)
[2021-09-15 11:29] LABS: Alanine Aminotransferase 9 U/L (0-41); Alkaline Phosphatase 78 IU/L (40-130); Anion Gap 19.9 (5-19); Aspartate Amino Transferase 13 U/L (0-40); Blood Urea Nitrogen 21 mg/dL (8-23); Calcium 9.2 mg/dL (8.5-10.5); Carbon Dioxide 19 mmol/L (22-29); Chloride 102 mmol/L (98-107); Globulin 3.2 g/dL (1.3-4.6); Glomerular Filtration Rate 111.8 mL/min (90-130); Glucose 109 mg/dL (65-115); Osmolality Calculated 288 mOsm/kg (285-295); Potassium 3.9 mmol/L (3.5-5.1); Sodium 137 mmol/L (136-145); Total Bilirubin 0.6 mg/dL (0.15-1.2); Total Protein 7.2 g/dL (6.6-8.7)
[2021-09-15] MEDS: sodium chloride 0.9% 1,000 ML 999 ML IV (11:30)
[2021-09-15 11:37] LABS: Lipase 945 U/L (13-60)
[2021-09-15] MEDS: LORazepam 2 mg/mL INJ 1 mL IVP ×2 (12:00→23:03)
--- NOTE | 2021-09-15 12:45 | P.HP_ITS ---
Providers/Chief Complaint Admitting Physician: Avery Ness MD Primary Care Provider: HARIS Salter Chief Complaint: ABDOMINAL PAIN History of Present Illness Channing Venegas is a 71 year old male who presents to the emergency department with abdominal pain. He reports this is consistent with his pancreatitis pain. He continues to drink, and has had several episodes of hospitalization for pancreatitis in the past. Last alcohol intake yesterday. He has been nauseous but not vomiting. Abdominal pain tends to be in his back, epigastric area without radiation. He reports he has had a few chills but no fever. No difficulty urinating. Last bowel movement yesterday. No blood in his stool, black or tarry stools, or hematemesis. He is sleepy during the interview and his sister supplements some of his history and physical. Review of Systems General: Reports: 10 or more systems reviewed and unremarkable except in HPI and below Const: Reports: chills; Denies: fever(s) Eyes: Denies: change in vision ENMT: Denies: throat pain Card: Denies: chest pain Resp: Denies: dyspnea GI: Reports: abdominal pain and nausea; Denies: vomiting, hematemesis, hematochezia or melena : Denies: flank pain or difficulty urinating Musc: Denies: neck pain Skin/Breast: Denies: rash Neuro: Denies: headache(s) Psych: Reports: depression and mood swings (history of Bipolar disorder) Endo: Denies: polyuria Josias/Lymph: Denies: easy bruising All/Imm: Denies: urticaria Medications/Allergies Home Medications Medication Instructions Recorded Confirmed Last Taken Type pediatric multivitamin no.30 1 tab PO DAILY 01/15/20 09/15/21 09/14/21 History (Gummies Children Multivitamin) hydrocodone 5 mg-acetaminophen 325 1 tab PO Q8H PRN #10 tab 08/07/21 09/15/21 09/15/21 Rx mg tablet Allergies Allergy/AdvReac Type Severity Reaction Status Date / Time Penicillins Allergy becomes Verified 09/15/21 10:23 overheated and sweating PFSH Acute PFSH: Medical History Alcohol abuse Bipolar 1 disorder Insomnia Pancreatitis Smoker Surgical History (Updated 09/15/21 @ 12:57 by Avery Ness MD) History of cataract surgery No pertinent past surgical history Family History (Updated 09/15/21 @ 12:57 by Avery Ness MD) Other Cancer Psychiatric illness Denies family history of Diabetes Clotting disorder Dementia Chronic kidney disease (CKD) Social History Smoking and tobacco status: current every day smoker cigarettes Packs smoked per day: 3 Years cigarettes smoked: 45 Alcohol intake: current Alcohol intake frequency: 3 or more drinks per day Al cohol type: hard liquor Household members: spouse Housing: House Marital status: Current occupation: On disability because of lower back pain and scoliosis Vitals/I&O/Wt Last Vital Signs Temp 98.1 F 09/15/21 09:36 Pulse 61 09/15/21 09:36 Resp 30 H 09/15/21 10:52 BP 160/79 09/15/21 09:36 Pulse Ox 98 09/15/21 10:52 Weight last 48 hrs Weight 70.307 kg Physical Exam Narrative: General exam demonstrates a white male, sleepy from Dilaudid and Ativan he received, in no apparent distress HEENT: Atraumatic normocephalic. Pupils equally round. Oropharynx clear. Neck is supple no lymphadenopathy or thyromegaly Cardiovascular regular rate and rhythm without murmur, no S3 or S4 Lungs clear to auscultation bilaterally. No wheezes or crackles Abdomen is soft. Tenderness is present mainly upper quadrants, epigastric area. No obvious organomegaly exam is deferred Extremities no cyanosis clubbing or edema, cap refill brisk Skin no rash Neuro no obvious focal deficits. Data : 09/15/21 11:00 09/15/21 11:00 Other Labs: EKG demonstrates sinus rhythm, normal axis, RSR prime in V1 V2 suggestive of incomplete right bundle branch block. LFTs normal Lipase 945 Recent TSH checked and normal I have ordered an abdominal ultrasound. A&P Assessment and plan (1) Pancreatitis: Patient with acute pancreatitis, which appears to be alcohol induced. Avoid all alcohol N.p.o. Check triglyceride level we will Pain control with morphine, nausea control with Zofran Will veterans rehabilitation counselor patient regarding alcohol when he is more awake. Check abdominal ultrasound Status: Acute Qualifiers: Acute pancreatitis complication: unspecified Chronicity: acute Pancreatitis type: alcohol induced Qualified Code(s): K85.20 - Alcohol induced acute pancreatitis without necrosis or infection (2) Alcohol abuse: Will veterans rehabilitation counselor patient regarding alcohol Thiamine as noted Interviewed patient and reviewed record. No significant evidence of withdrawal in the past. Should withdrawal symptoms start occurring consider CIWA protocol. Check magnesium level Status: Acute (3) Tobacco dependence: Encourage abstinence If patient desires when he is more awake, nicotine patch can be used. Status: Acute (4) Bipolar 1 disorder: History of bipolar disorder, untreated currently. Ativan as needed We will visit with patient when he is more awake whether he wants further exploration of treatment of this. He has refused in the past. Status: Acute Plan Multiple other medical problems as outlined in past medical history Full code Lovenox will suffice for DVT prophylaxis Attestations Medical Necessity Statement*: Will need greater than 2 midnight stay for evaluation and treatment of pancreatitis, with supportive treatment with pain medication as well as IV fluids Coding Level of Care Code Acute Rn Testing for Chey Howe Diagnoses Pancreatitis K85.20 Acute pancreatitis complication: unspecified Chronicity: acute Pancreatitis type: alcohol induced Alcohol abuse F10.10 Tobacco dependence F17.200 Bipolar 1 disorder F31.9
--- NOTE | 2021-09-15 12:45 | US_ITS ---
WS: [id number] ULTRASOUND ABDOMEN CLINICAL INFORMATION: abdominal pain, elevated lipase COMPARISON: None. FINDINGS: Technically difficult examination due positioning and bowel gas. Liver Size: Normal. Craniocaudal length: 14.9 cm. Echogenicity: Normal. Surface nodularity: None. Mass (size and location): None. Bile ducts Intrahepatic ducts: Normal. Common bile duct diameter: 0.4 cm. Gallbladder Normal. Gallstones: None. Gallbladder sludge: None. Gallbladder wall thickening: None. Pericholecystic fluid: None. Sonographic Baltazar sign: Absent. Pancreas Heterogeneous pancreas suspicious for pancreatitis. No fluid collections. Mild dilatation of the panc reatic duct. Spleen Splenomegaly: None. Craniocaudal length: 12.5 cm. Right kidney: Normal. Hydronephrosis: None. Size: 10.8 cm x 7.6 cm x 4.5 cm Left kidney: Complex cyst mid LEFT kidney Hydronephrosis: None. Size: 11.7 cm x 4.8 cm x 5.1 cm. Abdominal aorta and IVC Visualized portions are normal. Ascites: None. US/US abdomen complete* [id number] IMPRESSION: 1. Normal liver. 2. Normal gallbladder. 3. No hydronephrosis in either kidney. 4. Slightly complex cyst mid LEFT kidney with one or 2 septations. Cyst measur es 5.4 x 5.0 x 5.0 cm 5. Spleen not well seen but appears within normal limits. 6. Enlarged pancreas with Heterogeneous pancreatic echogenicity suspicious for pancreatitis. No peripancreatic fluid collections. Recommend correlation with pancreatic enzymes. Mild chronic appearing dilatation of the pancreatic duct. 7. No ascites.
[2021-09-15 13:33] LABS: Magnesium 1.7 mg/dL (1.7-2.3); Triglycerides 119 mg/dL (0-150)
[2021-09-15] MEDS: pantoprazole 40 mg SDV IVP (14:31)
[2021-09-15] MEDS: enoxaparin 40 mg/0.4 mL Syringe SUBCUT (14:31)
[2021-09-15] MEDS: sodium chloride 0.9% 1,000 ML 150 ML IV ×2 (14:31→21:15)
[2021-09-15] MEDS: morphine 4 mg/mL SDV 1 mL IVP ×2 (17:36→23:00)
[2021-09-15] MEDS: acetaminophen 325 mg Tablet 650 MG PO (19:24)
[2021-09-16] VITALS (7 sets, daily range): BP systolic 154–173; BP diastolic 73–79; PULSE 56–81; RESP 17–18; TEMP 36.6–36.9; O2SAT 93–97
[2021-09-16] MEDS: sodium chloride 0.9% 1,000 ML 150 ML IV ×3 (03:50→18:10)
[2021-09-16 05:11] LABS: Basophils # 0.1 10^3/uL (0.0-0.1); Basophils % 0.5 %; Eosinophils # 0.2 10^3/uL (0.0-0.8); Eosinophils % 1.1 %; Hematocrit 46.4 % (42.0-52.0); Hemoglobin 15.4 g/dL (11.7-16.6); Lymphocytes # 1.9 10^3/uL (0.8-4.8); Lymphocytes % 13.2 %; Mean Corpuscular HGB Conc 33.2 g/dL (30.0-36.0); Mean Corpuscular Hemoglobin 33.9 pg (28.0-34.0); Mean Corpuscular Volume 102.2 fl (80-94); Monocytes # 1.4 10^3/uL (0.2-0.9); Monocytes % 9.6 %; Neutrophils # 10.97 10^3/uL (1.8-7.7); Neutrophils % 75.1 %; Nucleated Red Blood Cells % 0 %; Platelet Count 209 10^3/cmm (130-400); Red Blood Count 4.54 10^6/uL (4.1-5.3); Red Cell Distribution Width 14.5 % (12.1-15.1); White Blood Count 14.6 10^3/uL (4.0-10.0)
[2021-09-16 05:30] LABS: Alanine Aminotransferase 7 U/L (0-41); Albumin Level 3.4 g/dL (3.5-5.2); Alkaline Phosphatase 70 IU/L (40-130); Anion Gap 14.2 (5-19); Aspartate Amino Transferase 12 U/L (0-40); Blood Urea Nitrogen 14 mg/dL (8-23); Carbon Dioxide 22 mmol/L (22-29); Chloride 103 mmol/L (98-107); Globulin 2.4 g/dL (1.3-4.6); Glomerular Filtration Rate 133.6 mL/min (90-130); Glucose 106 mg/dL (65-115); Magnesium 1.6 mg/dL (1.7-2.3); Osmolality Calculated 281 mOsm/kg (285-295); Potassium 4.2 mmol/L (3.5-5.1); Sodium 135 mmol/L (136-145); Total Bilirubin 0.6 mg/dL (0.15-1.2); Total Protein 5.8 g/dL (6.6-8.7)
[2021-09-16 05:46] LABS: Lipase 1025 U/L (13-60)
--- NOTE | 2021-09-16 05:48 | NUR.SHIFT ---
Patient made report of discomfort and anxiety early this shift. PRN medications given and effective for patient. Guarding and tenderness noted to abdomen. Sleeping during most rounds. Continent and voided using urinal independently. IV in right antecubital patent and infusing NS at 150ml/hr.
[2021-09-16] MEDS: magnesium sulfate premix 2 GM/50 ML PIGGYBACK IV (09:03)
[2021-09-16] MEDS: thiamine 100 mg Tablet PO (09:03)
--- NOTE | 2021-09-16 09:51 | P.PN_ITS ---
Subjective Subjective: Channing reports his abdominal pain is little bit better. He is no longer nauseated. Still hurting a fair amount. Is willing to see psychiatry regarding his bipolar disorder and insomnia, but is still worried about taking any medications for it other than alcohol. I reiterated that alcohol is a medication he is using to treat his disorder, and it is now causing him severe side effects of pancreatitis which is life-threatening. Medications: Reviewed: Yes Vitals/I&O/Wt Last Vital Signs Temp 98.4 F 09/16/21 07:26 Pulse 78 09/16/21 07:26 Resp 18 09/16/21 07:26 BP 167/79 09/16/21 07:26 Pulse Ox 96 09/16/21 07:26 09/15/21 09/16/21 09/16/21 22:59 06:59 14:59 Intake Total 1999 / 1999 1000 / 3000 Output Total 900 / 900 600 / 600 Balance 1999 / 1999 100 / 2100 -600 / -600 Weight last 48 hrs Weight 73.255 kg Weight 70.307 kg Physical Exam Narrative: General exam demonstrates conversant, reporting abdominal pain Neck is supple no lymphadenopathy or thyromegaly Cardiovascular regular rate and rhythm without murmur, no S3 or S4 Lungs clear to auscultation bilaterally. No wheezes or crackles Abdomen is soft. Tenderness is present mainly upper quadrants, epigastric area. No obvious organomegaly exam is deferred Extremities no cyanosis clubbing or edema, cap refill brisk Skin no rash Data : 09/16/21 04:33 09/16/21 04:33 A&P Assessment and plan (1) Pancreatitis: Patient with acute pancreatitis, which appears to be alcohol induced. Avoid all alcohol With symptomatic improvement will allow clear liquids Triglyceride level checked, normal Pain control with morphine, nausea control with Zofran Will residence counselor patient regarding alcohol when he is more awake. Abdominal ultrasound checked. No pseudocyst. Other findings as noted. Secondary to recent CT August 06 and clinical improvement this was not repeated. Status: Acute (2) Alcohol abuse: Will residence counselor patient regarding alcohol Thiamine as noted Interviewed patient and reviewed record. No significant evidence of withdrawal in the past. Should withdrawal symptoms start occurring consider CIWA protocol. Magnesium level slightly low. Supplement. Status: Acute (3) Tobacco dependence: Encourage abstinence If patient desires when he is more awake, nicotine patch can be used. Status: Acute (4) Bipolar 1 disorder: History of bipolar disorder, untreated currently. Ativan as needed He is willing to see psychiatry. Will consult today. Status: Acute Plan Hypomagnesemia. Treat. Recheck in the morning. Multiple other medical problems as outlined in past medical history Full code Lovenox will suffice for DVT prophylaxis Attestations Medical Necessity Statement*: Needs continued hospitalization for support with IV fluid secondary to acute pancreatitis, until he is adequately able to take p.o. and liquids to prevent rehospitalization. Coding Level of Care Code Acute Glass Block Installer for Chey Schaferd Diagnoses Pancreatitis K85.90 Alcohol abuse F10.10 Tobacco dependence F17.200 Bipolar 1 disorder F31.9
[2021-09-16] MEDS: ondansetron 2 mg/ML SDV 2 mL 4 MG IVP (10:15)
[2021-09-16] MEDS: morphine 4 mg/mL SDV 1 mL IVP (10:16)
[2021-09-16] MEDS: morphine 4 mg/mL SDV 1 mL 2 MG IVP (15:12)
[2021-09-16] MEDS: pantoprazole 40 mg SDV IVP (15:13)
[2021-09-16] MEDS: enoxaparin 40 mg/0.4 mL Syringe SUBCUT (15:13)
[2021-09-16 18:09] LABS: Adenovirus Not Detected (NOT DETECT); Chlamydia Pneumoniae Not Detected (NOT DETECT); Coronavirus 229E,HKU1,NL63,OC4 Not Detected (NOT DETECT); Human Metapneumovirus Not Detected (NOT DETECT); Human Rhinovirus/Enterovirus Not Detected (NOT DETECT); Influenza A Not Detected (NOT DETECT); Influenza A H1 Not Detected (NOT DETECT); Influenza A H1-2009 Not Detected (NOT DETECT); Influenza A H3 Not Detected (NOT DETECT); Influenza B Not Detected (NOT DETECT); Mycoplasma Pneumoniae Not Detected (NOT DETECT); Parainfluenza Virus Type 1 Not Detected (NOT DETECT); Parainfluenza Virus Type 2 Not Detected (NOT DETECT); Parainfluenza Virus Type 3 Not Detected (NOT DETECT); Parainfluenza Virus Type 4 Not Detected (NOT DETECT); Respiratory Syncytial Virus A Not Detected (NOT DETECT); Respiratory Syncytial Virus B Not Detected (NOT DETECT); SARS-COV-2 Not Detected (NOT DETECT)
--- NOTE | 2021-09-16 19:13 | PC.NURSE ---
Notified Dr. Ness of patient up, dressed and wanting IV out due to patient leaving AMA. Stated, Dr. Blair was to come and see me. He is not coming today and that is all I was waiting on. Noting is being done for me here and I need some rest. I can treat myself at home and get some rest. This nurse had patient sign AMA paperwork and walked patient and spouse to elevator. Spouse stated was very stubborn and thanked this nurse for what we done.
--- NOTE | 2021-09-17 07:00 | W.PM.EVENTAC ---
Event Note Event Note: Patient went AMA 09/16/21. Nurse reviewed risks.
== END 2021-09-16 19:22 | disposition home or self-care (01) ==
LOC: ER 09:35 → MEDSURG 14:45
PROVIDERS: Admitting Provider Internal Medicine; Emergency Provider Family Medicine; PCP Nurse Practitioner Family; Visit Provider Internal Medicine
DX: K85.20 Alcohol induced acute pancreatitis without necrosis or infection (principal); F10.10 Alcohol abuse, uncomplicated; F31.9 Bipolar disorder, unspecified; F17.210 Nicotine dependence, cigarettes, uncomplicated
CPT/HCPCS: 36415; 76700; 80053; 83690; 83735; 84478; 85025; 87635; 93005; 96372; 96374; 96375; 99285; C9113; G0378; J1170; J1650; J2060; J2270; J2405; J3411; J3475; J7030

== ENCOUNTER 2021-10-07 19:30 | Emergency (ER) | payer MEDICARE, SELFPAY ==
[2021-10-07 19:40] VITALS: BMI 21.2
[2021-10-07 19:56] VITALS: BP 168/77; PULSE 68; RESP 22; TEMP 37.1; O2SAT 99
[2021-10-07 20:03] LABS: Basophils # 0.1 10^3/uL (0.0-0.1); Basophils % 0.9 %; Eosinophils # 0.2 10^3/uL (0.0-0.8); Eosinophils % 1.7 %; Hematocrit 48.5 % (42.0-52.0); Hemoglobin 16.9 g/dL (11.7-16.6); Lymphocytes % 23.1 %; Mean Corpuscular HGB Conc 34.8 g/dL (30.0-36.0); Mean Corpuscular Hemoglobin 32.9 pg (28.0-34.0); Mean Corpuscular Volume 94.5 fl (80-94); Mean Platelet Volume 9.6 fL (7.4-10.4); Monocytes # 1.1 10^3/uL (0.2-0.9); Monocytes % 8.6 %; Neutrophils # 8.56 10^3/uL (1.8-7.7); Neutrophils % 65.2 %; Nucleated Red Blood Cells % 0 %; Platelet Count 306 10^3/cmm (130-400); Red Blood Count 5.13 10^6/uL (4.1-5.3); Red Cell Distribution Width 13.7 % (12.1-15.1); White Blood Count 13.1 10^3/uL (4.0-10.0)
--- NOTE | 2021-10-07 20:22 | W.ED.ABDPA2 ---
HPI - Abdominal Pain General: Chief Complaint: Abdominal Pain Stated Complaint: ABD PAIN Time Seen by Provider: 10/07/21 19:58 Source: patient Mode of arrival: EMS Limitations: no limitations History of Present Illness: This patient comes to emergency department via EMS because of abdominal pain. He states abdominal pain began approximately 5 PM this evening. He attributed his to pancreatitis. He states his symptoms are exactly like those he is experienced on approximately 4-5 times previously when he had a bout of pancreatitis. He states he is not drinking alcohol. He states his prior pancreatitis was attributed to his daily use of alcohol but he has quit drinking. He denies any known exposure to infectious disease. No one else is ill at home. He has not had any vomiting or diarrhea. He denies any melanotic stools. No history of gastrointestinal bleeding. He does smoke tobacco. He denies chest pain or shortness of breath and denies any history of cardiovascular symptoms and stated he has been worked up previously for cardiovascular disease all which have been negative. He does not take any pancreatic enzymes. He states he is manic-depressive and that is what he previously drank for was to treat that condition. He currently takes no medications at all. He has had no abdominal surgeries. He states his pain is mid epigastric some radiation to the back. He states it is waxing and waning but still present since onset approximately 5 PM this evening. MD elicited complaint: abdominal pain Location: Epigastric and Periumbilical Quality: aching Radiation: back Associated Symptoms: Denies change in stool character, chills, dysuria, fever(s), hematochezia, hematemesis, melena, nausea and vomiting Review of Systems Const: Denies: fever(s), chills, body aches or change in appetite Eyes: Denies: change in vision or blurry vision ENMT: Denies: throat pain or odynophagia Card: Denies: chest pain, palpitations or edema Resp: Denies: dyspnea, productive cough or non-productive cough GI: Reports: abdominal pain; Denies: nausea, vomiting, hematemesis, change in stool character, hematochezia or melena : Denies: flank pain, difficulty urinating, dysuria or urinary frequency Musc: Denies: neck pain, extremity pain or extremity swelling Skin/Breast: Denies: rash, pruritus or erythema Neuro: Denies: headache(s), numbness in extremities or weakness in extremities Psych: Reports: mood swings; Denies: visual hallucinations, auditory hallucinations, suicidal ideation or homicidal ideation Endo: Denies: polyuria or polydipsia PFSH ED PFSH: Medical History Alcohol abuse Bipolar 1 disorder Insomnia Pancreatitis Smoker Surgical History History of cataract surgery No pertinent past surgical history Family History Other Cancer Psychiatric illness Denies family history of Diabetes Clotting disorder Dementia Chronic kidney disease (CKD) Social History Smoking and tobacco status: current every day smoker cigarettes Packs smoked per day: 3 Years cigarettes smoked: 45 Alcohol intake: current Alcohol intake frequency: 3 or more drinks per day Alcohol type: hard liquor Household members: spouse Housing: House Marital status: Current occupation: On disability because of lower back pain and scoliosis Physical Exam Narrative: EXAM NARRATIVE: The patient initially was holding his abdomen and seemingly in discomfort however during discussion he seemed to focus on the interaction. He makes good eye contact. His speech is quite pressured but generally goal-directed. Const: COMMON NORMALS: average body habitus, patient oriented x3 and alert GENERAL APPEARANCE: cooperative HENMT: COMMON NORMALS: normocephalic, atraumatic, Normal nasal mucous membranes and turbinates present and moist oral mucous membranes HEAD & SCALP: normocephalic and atraumatic NOSE: Normal nasal mucous membranes and turbinates present Eye: COMMON NORMALS: Equal, round and reactive pupils present, EOMs intact bilaterally and conjunctivae normal CONJUNCTIVA: Yes conjunctivae normal PUPIL: Yes Equal, round and reactive pupils present Neck/C-Spine: COMMON NORMALS: full ROM, no lymphadenopathy, no JVD and Thyroid normal THYROID: Thyroid normal Lymph: LYMPHATIC: no lymphadenopathy noted Chest: COMMONS NORMALS: normal inspection of the chest Resp: COMMON NORMALS: normal respiratory effort, No retractions and No use of accessory muscles Cardio: COMMON NORMALS: no JVD, regular rate, regular rhythm and No murmurs present (Cardio) RATE: regular rate RHYTHM: regular rhythm GI: COMMON NORMALS: Normal to inspection, nondistended, normoactive bowel sounds present, Soft to palpation, non-tender, No hepatosplenomegaly present and no masses PALPATION: Yes Soft to palpation and Yes No hepatosplenomegaly present : COMMON NORMALS: Yes no CVA tenderness BLADDER/KIDNEY EXAM: Yes no CVA tenderness Back/Pelvis: COMMON NORMALS: no CVA tenderness, thoracic and lumbar spine normal to inspection and no thoracic nor lumbar tenderness Extremity: COMMON NORMALS: normal to inspection, full ROM, capillary refill normal, no calf tenderness and no pedal edema Neuro: COMMON NORMALS: patient oriented x3, moves all extremities, no focal motor deficits and no sensory deficits noted SENSORIUM/ORIENTATION: Yes alert CRANIAL NERVES: Yes CN normal except as noted SPEECH: speech normal Psych: COMMON NORMALS: mental status grossly normal ATTITUDE: Yes engaged ACTIVITY/MOTOR BEHAVIOR: Yes appropriate eye contact SPEECH: Yes excessive MOOD & AFFECT: Yes elevated mood MEMORY/COGNITION: Yes memory grossly intact Skin: COMMON NORMALS: no rashes or lesions noted, turgor normal and no jaundice GENERAL SKIN EXAM: no rashes or lesions noted and turgor normal Course Reevaluation(s): Reevaluation #1: Patient's vital signs are stable. He subjectively states he he feels like he still having pain. His laboratories are reassuring. His examination is also reassuring he has no evidence of peritoneal signs or surgical abdomen. Do not feel that imaging is indicated at this time given his current clinical picture and history of recurrent pancreatitis. As it is well-known there is not a strong correlation between pain and serum lipase levels. Plan will be to get a little bit better control of his subjective symptoms and plan on discharge. We will also likely prescribe pancreatic enzymes on a short-term basis with him being advised to have his regular physician consider prescribing those more long-term. Time: 21:22 Reevaluation #2: Patient states he is improved. I discussed current findings and plan of care with both he and his spouse who is now present. Again no evidence at this time to suggest a surgical abdomen or other serious condition. Consistent with his previous symptoms of recurrent pancreatitis. No imaging indicated at this time given his clinical picture and improvement. We will go ahead and continue him on some analgesics for the next several days as this process improves as well as start him on pancreatic enzymes. We will also put a consult into case management for referral to mental health. He likely needs some additional mental health treatment to help him reduce any likelihood of returning to alcohol for self treatment. All questions were answered. Is currently stable for discharge. Time: 23:01 Vital Signs: Vital signs: Vital Signs Temperature 98.7 F 10/07/21 19:56 Pulse Rate 70 10/07/21 21:46 Respiratory Rate 22 H 10/07/21 21:46 Blood Pressure 164/72 10/07/21 21:46 Pulse Oximetry 94 10/07/21 21:46 MDM - Abdominal Pain Medical Decision Making Patient with a history of recurrent abdominal pain consistent with recurrent pancreatitis. Patient presented with exact same symptoms as previous. His laboratories are reassuring and his clinical examination did not reveal any findings of concern. His pain was controlled. We have discussed inclusion of pancreatic enzymes in his regimen and follow-up for continued prescription of those to help reduce his recurrence. He is not drinking alcohol and he was cautioned not to do so. We have also made a case management referral for mental health referral for his bipolar disorder to help reduce any likelihood of recurrent alcohol use. Lab Data : 10/07/21 19:55 10/07/21 19:55 Labs/Radiology: Laboratory Results WBC 13.1 10^3/uL (4.0-10.0) H 10/07/21 19:55 RBC 5.13 10^6/uL (4.1-5.3) 10/07/21 19:55 Hgb 16.9 g/dL (11.7-16.6) H 10/07/21 19:55 Hct 48.5 % (42.0-52.0) 10/07/21 19:55 MCV 94.5 fl (80-94) H 10/07/21 19:55 MCH 32.9 pg (28.0-34.0) 10/07/21 19:55 MCHC 34.8 g/dL (30.0-36.0) 10/07/21 19:55 RDW 13.7 % (12.1-15.1) 10/07/21 19:55 Plt Count 306 10^3/cmm (130-400) 10/07/21 19:55 MPV 9.6 fL (7.4-10.4) 10/07/21 19:55 Neut % (Auto) 65.2 % 10/07/21 19:55 Lymph % (Auto) 23.1 % 10/07/21 19:55 [place] % (Auto) 8.6 % 10/07/21 19:55 Eos % (Auto) 1.7 % 10/07/21 19:55 Baso % (Auto) 0.9 % 10/07/21 19:55 Neut # (Auto) 8.56 10^3/uL (1.8-7.7) H 10/07/21 19:55 Lymph # (Auto) 3.0 10^3/uL (0.8-4.8) 10/07/21 19:55 [place] # (Auto) 1.1 10^3/uL (0.2-0.9) H 10/07/21 19:55 Eos # (Auto) 0.2 10^3/uL (0.0-0.8) 10/07/21 19:55 Baso # (Auto) 0.1 10^3/uL (0.0-0.1) 10/07/21 19:55 Nucleated RBC % (auto) 0 % 10/07/21 19:55 Nucleated RBCs # 0.0 /100WBC 10/07/21 19:55 Sodium 137 mmol/L (136-145) 10/07/21 19:55 Potassium 4.1 mmol/L (3.5-5.1) 10/07/21 19:55 Chloride 99 mmol/L (98-107) 10/07/21 19:55 Carbon Dioxide 24 mmol/L (22-29) 10/07/21 19:55 Anion Gap 18.1 (5-19) 10/07/21 19:55 BUN 18 mg/dL (8-23) 10/07/21 19:55 Creatinine 0.8 mg/dL (0.7-1.2) 10/07/21 19:55 GFR Calculation 95.8 mL/min (90-130) 10/07/21 19:55 Glucose 91 mg/dL (65-115) 10/07/21 19:55 Calculated Osmolality 285 mOsm/kg (285-295) 10/07/21 19:55 Calcium 9.8 mg/dL (8.5-10.5) 10/07/21 19:55 Total Bilirubin 0.3 mg/dL (0.15-1.2) 10/07/21 19:55 AST 11 U/L (0-40) 10/07/21 19:55 ALT 11 U/L (0-41) 10/07/21 19:55 Alkaline Phosphatase 104 IU/L (40-130) 10/07/21 19:55 Total Protein 7.7 g/dL (6.6-8.7) 10/07/21 19:55 Albumin 4.3 g/dL (3.5-5.2) 10/07/21 19:55 Globulin 3.4 g/dL (1.3-4.6) 10/07/21 19:55 Lipase 42 U/L (13-60) 10/07/21 19:55 Urine Color Yellow (Yellow) 10/07/21 22:35 Urine Appearance Clear (CLEAR) 10/07/21 22:35 Urine pH 6.5 (5-7) 10/07/21 22:35 Ur Specific [place] 1.010 (1.005-1.030) 10/07/21 22:35 Urine Protein Neg (Negative) 10/07/21 22:35 Urine Glucose (UA) Norm (Normal) 10/07/21 22:35 Urine Ketones 1+ (Negative) H 10/07/21 22:35 Urine Blood Neg (Negative) 10/07/21 22:35 Urine Nitrate Negative (Negative) 10/07/21 22:35 Urine Bilirubin Neg (Negative) 10/07/21 22:35 Urine Urobilinogen Norm mg/dL (Negative) 10/07/21 22:35 Ur Leukocyte Esterase Negative (Negative) 10/07/21 22:35 Discharge Plan Discharge Clinical Impression: Pancreatitis Qualifiers: Chronicity: chronic Pancreatitis type: unspecified pancreatitis type Qualified Code(s): K86.1 - Other chronic pancreatitis Abdominal pain Qualifiers: Abdominal location: periumbilical Qualified Code(s): R10.33 - Periumbilical pain Condition: Stable Prescriptions: New hydrocodone-acetaminophen 5-325 mg tablet 1 tab PO Q8H PRN (Reason: pain) Qty: 14 0RF Pancreaze 2,600-8,800- 15,200 unit capsule,delayed release(DR/EC) 1 cap PO TID Qty: 30 0RF Rx Instructions: do not exceed 10,000 unit/kg lipase per 24 hrs No Action Gummies Children Multivitamin Tablet,Chewable 1 tab PO DAILY 0RF hydrocodone-acetaminophen 5-325 mg tablet 1 tab PO Q8H PRN (Reason: pain) Qty: 10 0RF Referrals: Lisbeth Gimenez FNP [Primary Care Provider] - 7-10 days Discharge Diet: Advance as tolerated and Low Cholesterol Discharge Activity: Increase activity as tolerated Activity Restrictions/Additional Instructions: Take the medications we have prescribed. Follow-up with your primary practitioner for refills of your pancreatic enzymes. Do not drink alcohol. Case management will call you early next week to discuss mental health referral. Return to this emergency department for any persistent new or recurrent symptoms. Coding Level of Care Code ED Lodging Facilities Manager for [facility] Fwd Exam Comprehensive
[2021-10-07 20:24] LABS: Alanine Aminotransferase 11 U/L (0-41); Albumin Level 4.3 g/dL (3.5-5.2); Alkaline Phosphatase 104 IU/L (40-130); Anion Gap 18.1 (5-19); Aspartate Amino Transferase 11 U/L (0-40); Blood Urea Nitrogen 18 mg/dL (8-23); Calcium 9.8 mg/dL (8.5-10.5); Carbon Dioxide 24 mmol/L (22-29); Chloride 99 mmol/L (98-107); Globulin 3.4 g/dL (1.3-4.6); Glomerular Filtration Rate 95.8 mL/min (90-130); Glucose 91 mg/dL (65-115); Lipase 42 U/L (13-60); Osmolality Calculated 285 mOsm/kg (285-295); Potassium 4.1 mmol/L (3.5-5.1); Sodium 137 mmol/L (136-145); Total Bilirubin 0.3 mg/dL (0.15-1.2); Total Protein 7.7 g/dL (6.6-8.7)
[2021-10-07] MEDS: sodium chloride 0.9% 1,000 ML 999 ML IV (20:32)
[2021-10-07] MEDS: haloperidol inj 5 mg/mL INJ 1 mL IVP (20:33)
[2021-10-07] MEDS: diphenhydrAMINE 50 mg/mL SDV 1mL 12.5 MG IVP (20:33)
[2021-10-07] MEDS: HYDROcodone-acetaminophen 7.5-325 mg Tablet 1 TAB PO (21:43)
[2021-10-07] MEDS: ketorolac 30 mg/mL INJ 15 MG IVP (21:44)
[2021-10-07 21:46] VITALS: BP 164/72; PULSE 70; RESP 22; O2SAT 94
[2021-10-07 22:48] LABS: Add Urine Microscopic? NO; Charge for UA Resulting for Rev
[2021-10-07 22:52] LABS: Bilirubin Urine Neg (Negative); Blood Urine Neg (Negative); Glucose Urine UA Norm (Normal); Ketones Urine 1+ (Negative); Leukocyte Esterase Urine Negative (Negative); Nitrate Urine Negative (Negative); Protein Urine Neg (Negative); Urine Appearance Clear (CLEAR); Urine Color Yellow (Yellow); Urobilinogen Urine Norm (Negative); pH Urine 6.5 (5-7)
[2021-10-07] MEDS: HYDROcodone-acetaminophen 5-325 mg Tablet 1 TAB PO (23:51)
[2021-10-07 23:52] VITALS: BP 128/69; PULSE 55; RESP 17; O2SAT 95
[2021-10-08 00:15] VITALS: BP 135/72; PULSE 64; RESP 14; O2SAT 95
--- NOTE | 2021-10-10 13:21 | DCPLANNER ---
digital learning platforms manager had message to speak with patient about services at [facility]. digital learning platforms manager spoke with patient, gave him the information for [facility] and that he would need to fill out the initial paperwork and turn that in.
== END 2021-10-08 00:18 | disposition home or self-care (01) ==
PROVIDERS: Emergency Medicine; Emergency Provider Emergency Medicine; PCP Nurse Practitioner Family
DX: K86.1 Other chronic pancreatitis (principal); F31.9 Bipolar disorder, unspecified; F10.11 Alcohol abuse, in remission
CPT/HCPCS: 80053; 81003; 83690; 85025; 96374; 96375; 99284; J1200; J1630; J1885; J7030

== ENCOUNTER 2022-09-11 09:47 | Emergency (ER) | payer MEDICARE, SELFPAY ==
[2022-09-11 09:53] VITALS: BP 148/68; PULSE 63; TEMP 36.5; O2SAT 100; BMI 21.5
[2022-09-11 10:55] LABS: Basophils # 0.1 10^3/uL (0.0-0.1); Basophils % 1.2 %; Eosinophils # 0.4 10^3/uL (0.0-0.8); Eosinophils % 3.8 %; Hematocrit 50.7 % (42.0-52.0); Lymphocytes # 1.9 10^3/uL (0.8-4.8); Lymphocytes % 18.2 %; Mean Corpuscular HGB Conc 33.5 g/dL (30.0-36.0); Mean Corpuscular Hemoglobin 33.1 pg (28.0-34.0); Mean Corpuscular Volume 98.8 fl (80-94); Mean Platelet Volume 9.7 fL (7.4-10.4); Monocytes # 0.9 10^3/uL (0.2-0.9); Monocytes % 9.1 %; Neutrophils # 6.94 10^3/uL (1.8-7.7); Neutrophils % 67.2 %; Nucleated Red Blood Cells % 0 %; Platelet Count 255 10^3/cmm (130-400); Red Blood Count 5.13 10^6/uL (4.1-5.3); White Blood Count 10.3 10^3/uL (4.0-10.0)
[2022-09-11 11:03] LABS: Glucose Urine UA Norm (Normal); Ketones Urine 1+ (Negative); Protein Urine Neg (Negative); Specific Gravity, Urine 1.025 (1.005-1.030); Urine Appearance Clear (CLEAR); Urine Color Amber (Yellow); pH Urine 5 (5-7)
[2022-09-11 11:04] VITALS: BP 155/107; PULSE 58; RESP 18; O2SAT 97
[2022-09-11 11:04] LABS: Add Urine Microscopic? YES; Bilirubin Urine 3+ (Negative); Blood Urine 2+ (Negative); Leukocyte Esterase Urine Negative (Negative); Nitrate Urine Negative (Negative); Urobilinogen Urine Norm (Negative)
[2022-09-11 11:05] LABS: Add Urine Culture? No; Bacteria Urine 1+ /hpf; Mucus Urine 2+ /hpf; RBC Urine 0-4 /hpf (0-2); WBC Urine 0-4 /hpf (0-5)
--- NOTE | 2022-09-11 11:12 | CT_ITS ---
WS: [id number] CT ABDOMEN AND PELVIS WITH CONTRAST HISTORY: abd pain, hx pancreatitis TECHNIQUE: Imaging performed of the abdomen and pelvis with IV contrast. Single phase imaging of the abdomen. Coronal and sagittal reformats are submitted. All CT scans at [facility] use at [facility] one of these dose optimization techniques: automated exposure control; mA and/or kV adjustment per patient size (includes targeted exams where dose is matched to clinical indication); or iterative re construction. IV CONTRAST: Omnipaque 350; 100 mL IV. Oral contrast: No DLP: 396.73 mGy.cm COMPARISON: 08/06/2021 Lower thorax: Chronic emphysema the lung bases. Heart is normal size. No hiatal hernia. Liver/biliary system: Normal size liver. Marked intrahepatic duct dilatation is new since the prior e xam. No liver lesions. Common bile duct is markedly dilated. Common bile duct measures 1.7 cm and tap ers rapidly near the pancreatic head and ampulla of Vater. On several images I suspect there may be a stricture or mass in the distal CBD. Gallbladder: Mildly distended gallbladder. No wall thickening or adjacent fluid. Pancreas: Very slight dilatation of the pancreatic duct. There is mild fullness in the region of the pancreatic head. Loss of the normal architecture. May all be edema but the dilated common bile duct i s concerning for a neoplasm. Spleen: Normal size spleen. No mass or infarct. Adrenal glands: Normal. Right kidney: Normal. Left kidney: Normal size kidney. Cyst measures 5.7 x 6.0 cm. Additional smaller cortical cysts. Nonob structing calcification. Aorta: Mild atherosclerosis with no aneurysm. Lymphadenopathy: None. Free fluid: None. GI tract: Nondistended stomach. No small bowel obstruction. Tortuous overlapping loops of colon. No o bstruction. No appendicitis. Abdominal wall: Unremarkable abdominal wall. No hernia. Pelvis: No free fluid or adenopathy within the pelvis. Prostate enlarged and heterogeneous. Mild diff use bladder wall thickening may be due to partial outlet obstruction. Bones: Degenerative disc disease at L5-S1. CT/CT abdomen pelvis w con* [id number] IMPRESSION: 1. Severe dilatation of the common bile duct. New since 08/06/2021. Common bile duct measures 1.7 cm. There is additional dilatation of the intrahepatic ducts. 2. Change in caliber of the distal common bile duct near the pancreatic head. Pancreatic head is enlarged with loss of the normal architecture although the e nhancement is similar to the remaining pancreas. Suspicious for pancreatic head mass. Minimal pancreatic duct prominence. There may be a small amount of edema from pancreatitis also present. The common bile duct and pancreatic head need to be further evaluated. MRCP or ERCP recommended. 3. Mild distention of the gallbladder. 4. Intrahepatic duct dilatation. 5. LEFT renal cysts and nonobstructing calcification. 6. Atherosclerosis aorta. 7. Prostate gland enlargement with bladder wall hypertrophy. Notified Charles Dominguez DO at 09/11/2022 1:37 PM.
[2022-09-11 11:16] LABS: Alanine Aminotransferase 370 U/L (0-41); Albumin Level 4.1 g/dL (3.5-5.2); Alkaline Phosphatase 403 U/L (40-130); Anion Gap 16.9 (5-19); Aspartate Amino Transferase 306 U/L (0-40); Blood Urea Nitrogen 14 mg/dL (8-23); Carbon Dioxide 26 mmol/L (22-29); Chloride 100 mmol/L (98-107); Globulin 3.5 g/dL (1.3-4.6); Glomerular Filtration Rate 95.6 mL/min (90-130); Glucose 106 mg/dL (65-115); Magnesium 1.8 mg/dL (1.7-2.3); Osmolality Calculated 287 mOsm/kg (285-295); Potassium 4.9 mmol/L (3.5-5.1); Sodium 138 mmol/L (136-145); Total Bilirubin 5.4 mg/dL (0.15-1.2); Total Protein 7.6 g/dL (6.6-8.7)
--- NOTE | 2022-09-11 11:27 | W.ED.ABDPA2 ---
HPI - Abdominal Pain General: Chief Complaint: Abdominal Pain Stated Complaint: abd pain Time Seen by Provider: 09/11/22 10:59 History of Present Illness: Patient presents to the ER with complaints of abdominal pain. Patient says he has had this pain off and on for quite a while but is gotten worse over the last 1 day. Patient has a history of pancreatitis and he says this feels kind of like it but cannot. Patient has been not eating or drinking very good since his pain started. When the patient eats anything it appears to her to stomach more. Pain is more in epigastric area, patient is also complaining of dark urine. MD elicited complaint: abdominal pain Onset (ago): week(s) (Several weeks ago but worsened last week.) Pain Consistency: constant Location: Epigastric Severity: similar to previous episodes Quality: aching, dull and burning Radiation: back Migration to: no migration Exacerbating factors: eating Relieving factors: nothing Context: history of similar episodes Associated Symptoms: Reports anorexia, dyspepsia and nausea; Denies chills, dysuria and fever(s) Review of Systems General: Reports: 10 or more systems reviewed and unremarkable except in HPI and below Const: Denies: fever(s) or chills Eyes: Denies: change in vision ENMT: Denies: throat pain or odynophagia Card: Denies: chest pain, palpitations or irregular heart rhythm Resp: Denies: dyspnea, productive cough or non-productive cough GI: Reports: abdominal pain and nausea : Denies: flank pain, difficulty urinating or dysuria Musc: Reports: back pain; Denies: neck pain, extremity pain or extremity swelling Skin/Breast: Denies: rash, pruritus or erythema Neuro: Denies: headache(s), numbness in extremities or weakness in extremities PFSH ED PFSH: Medical History Alcohol abuse Bipolar 1 disorder Insomnia Pancreatitis Smoker Surgical History History of cataract surgery No pertinent past surgical history Family History Other Cancer Psychiatric illness Denies family history of Diabetes Clotting disorder Dementia Chronic kidney disease (CKD) Social History Smoking and tobacco status: current every day smoker cigarettes Packs smoked per day: 3 Years cigarettes smoked: 45 Alcohol intake: current Alcohol intake frequency: 3 or more drinks per day Alcohol type: hard liquor Substance/Drug Use: never Household members: spouse Housing: House Marital status: Current occupation: On disability because of lower back pain and scoliosis Physical Exam Const: COMMON NORMALS: no acute distress, average body habitus, patient oriented x3, no limitations, healthy appearing, alert and well nourished HENMT: COMMON NORMALS: normocephalic, atraumatic, hearing grossly normal bilaterally, external ears normal, Normal external nose present and moist oral mucous membranes HEAD & SCALP: normocephalic and atraumatic NOSE: Normal external nose present EXTERNAL EAR: Yes external ears normal Eye: COMMON NORMALS: Equal, round and reactive pupils present, EOMs intact bilaterally, conjunctivae normal and no scleral icterus CONJUNCTIVA: Yes conjunctivae normal PUPIL: Yes Equal, round and reactive pupils present Neck/C-Spine: COMMON NORMALS: full ROM, no lymphadenopathy, supple, no meningeal signs, no JVD and Thyroid normal THYROID: Thyroid normal Lymph: LYMPHATIC: no lymphadenopathy noted Chest: COMMONS NORMALS: normal inspection of the chest and normal palpation of entire chest wall Resp: COMMON NORMALS: normal respiratory effort, No retractions, No use of accessory muscles and clear to auscultation bilaterally AUSCULTATION: clear to auscultation bilaterally Cardio: COMMON NORMALS: no JVD, regular rhythm, S1 normal heart sound present, S2 normal heart sound present, No gallops present (Cardio), No clicks present (Cardio) and No murmurs present (Cardio) RHYTHM: regular rhythm HEART SOUNDS: S1 normal heart sound present and S2 normal heart sound present GI: COMMON NORMALS: Soft to palpation INSPECTION: Yes normal to inspection AUSCULTATION: Yes normoactive bowel sounds PALPATION: Yes Soft to palpation and Yes Tenderness to palpation present (GI) Details: other (Epigastric area) : COMMON NORMALS: Yes no CVA tenderness BLADDER/KIDNEY EXAM: Yes no CVA tenderness Back/Pelvis: COMMON NORMALS: no CVA tenderness Extremity: COMMON NORMALS: normal to inspection Neuro: COMMON NORMALS: patient oriented x3 SENSORIUM/ORIENTATION: Yes alert MENINGEAL SIGNS: Yes no meningeal signs Course Vital Signs: Vital signs: Vital Signs Temperature 97.7 F 09/11/22 09:53 Pulse Rate 55 L 05/15/23 13:24 Respiratory Rate 18 09/11/22 13:24 Blood Pressure 155/107 09/11/22 11:04 Pulse Oximetry 99 09/11/22 13:24 Oxygen Delivery Me thod Room Air 09/11/22 13:24 MDM - Abdominal Pain Medical Decision Making Patient presents to the ER with complaints of upper abdominal pain. Patient does have a history of pancreatitis. Patient states has not been able to eat or drink much of anything due to lack of hunger for the last 2 to 3 weeks. Physical exam was performed lab work and imaging was obtained which essentially showed severe dilation of the common bile duct and possible pancreatic head mass. Radiology recommended further imaging with MRCP and/or an ERCP. Patient will be transferred to [facility] hospitalist is excepting physician there. Patient was given morphine and Zofran for symptomatic control here in ER. Differential Diagnosis Likely pancreatitis; Unlikely abdominal pain, acute appendicitis, calculus of kidney, constipation, diverticulitis, endometriosis, gastroenteritis or small bowel obstruction Lab Data 09/11/22 10:29 09/11/22 10:29 Labs/Radiology: Radiology Impressions Abdomen/Pelvis CT 09/11/22 11:12 IMPRESSION: 1. Severe dilatation of the common bile duct. New since 08/06/2021. Common bile duct measures 1.7 cm. There is additional dilatation of the intrahepatic ducts. 2. Change in caliber of the distal common bile duct near the pancreatic head. Pancreatic head is enlarged with loss of the normal architecture although the enhancement is similar to the remaining pancreas. Suspicious for pancreatic head mass. Minimal pancreatic duct prominence. There may be a small amount of edema from pancreatitis also present. The common bile duct and pancreatic head need to be further evaluated. MRCP or ERCP recommended. 3. Mild distention of the gallbladder. 4. Intrahepatic duct dilatation. 5. LEFT renal cysts and nonobstructing calcification. 6. Atherosclerosis aorta. 7. Prostate gland enlargement with bladder wall hypertrophy. Notified Charles Dominguez DO at 09/11/2022 1:37 PM. Laboratory Results WBC 10.3 10^3/uL (4.0-10.0) H 09/11/22 10:29 RBC 5.13 10^6/uL (4.1-5.3) 09/11/22 10:29 Hgb 17.0 g/dL (11.7-16.6) H 09/11/22 10: Hct 50.7 % (42.0-52.0) 09/11/22 10: MCV 98.8 fl (80-94) H 09/11/22 10: MCH 33.1 pg (28.0-34.0) 09/11/22 10: MCHC 33.5 g/dL (30.0-36.0) 09/11/22 10: RDW 15.0 % (12.1-15.1) 09/11/22 10: Plt Count 255 10^3/cmm (130-400) 09/11/22 10: MPV 9.7 fL (7.4-10.4) 09/11/22 10: Neut % (Auto) 67.2 % 09/11/22 10: Lymph % (Auto) 18.2 % 09/11/22 10: [place] % (Auto) 9.1 % 09/11/22 10: Eos % (Auto) 3.8 % 09/11/22 10: Baso % (Auto) 1.2 % 09/11/22 10: Neut # (Auto) 6.94 10^3/uL (1.8-7.7) 09/11/22 10: Lymph # (Auto) 1.9 10^3/uL (0.8-4.8) 09/11/22 10: [place] # (Auto) 0.9 10^3/uL (0.2-0.9) 09/11/22 10: Eos # (Auto) 0.4 10^3/uL (0.0-0.8) 09/11/22 10: Baso # (Auto) 0.1 10^3/uL (0.0-0.1) 09/11/22 10: Nucleated RBC % (auto) 0 % 09/11/22 10: Nucleated RBCs # 0.0 /100WBC 09/11/22 10: Sodium 138 mmol/L (136-145) 09/11/22 10: Potassium 4.9 mmol/L (3.5-5.1) 09/11/22 10: Chloride 100 mmol/L (98-107) 09/11/22 10:29 Carbon Dioxide 26 mmol/L (22-29) 09/11/22 10:29 Anion Gap 16.9 (5-19) 09/11/22 10:29 BUN 14 mg/dL (8-23) 09/11/22 10:29 Creatinine 0.8 mg/dL (0.7-1.2) 09/11/22 10: GFR Calculation 95.6 mL/min (90-130) 09/11/22 10: Glucose 106 mg/dL (65-115) 09/11/22 10: Calculated Osmolality 287 mOsm/kg (285-295) 09/11/22 10: Calcium 10.0 mg/dL (8.5-10.5) 09/11/22 10: Magnesium 1.8 mg/dL (1.7-2.3) 09/11/22 10: Total Bilirubin 5.4 mg/dL (0.15-1.2) H 09/11/22 10:29 AST 306 U/L (0-40) H 09/11/22 10:29 ALT 370 U/L (0-41) H 09/11/22 10:29 Alkaline Phosphatase 403 U/L (40-130) H 09/11/22 10:29 Total Protein 7.6 g/dL (6.6-8.7) 09/11/22 10: Albumin 4.1 g/dL (3.5-5.2) 09/11/22 10: Globulin 3.5 g/dL (1.3-4.6) 09/11/22 10: Lipase 75 U/L (13-60) H 09/11/22 10:29 Urine Color [place] (Yellow) 09/11/22 10:36 Urine Appearance Clear (CLEAR) 09/11/22 10:36 Urine pH 5 (5-7) 09/11/22 10:36 Ur Specific [place] 1.025 (1.005-1.030) 09/11/22 10:36 Urine Protein Neg (Negative) 09/11/22 10:36 Urine Glucose (UA) Norm (Normal) 09/11/22 10:36 Urine Ketones 1+ (Negative) H 09/11/22 10:36 Urine Blood 2+ (Negative) H 09/11/22 10:36 Urine Nitrate Negative (Negative) 09/11/22 10:36 Urine Bilirubin 3+ (Negative) H 09/11/22 10:36 Urine Urobilinogen Norm mg/dL (Negative) 09/11/22 10:36 Ur Leukocyte Esterase Negative (Negative) 09/11/22 10:36 Urine RBC 0-4 /hpf (0-2) H 09/11/22 10:36 Urine WBC 0-4 /hpf (0-5) H 09/11/22 10:36 Ur Squamous Epith Cells 5-10 /hpf (0-5) H 09/11/22 10:36 Amorphous Sediment Not Reportable 09/11/22 10:36 Urine Bacteria 1+ /hpf (NONE) H 09/11/22 10:36 Urine Mucus 2+ /hpf 09/11/22 10:36 Discharge Plan Discharge Patient Disposition: Xfer Short-Term Hosp Clinical Impression: Mass of head of pancreas, Common bile duct dilation, Acute pancreatitis, Abdominal pain, acute, right upper quadrant Condition: Stable Prescriptions: No Action Gummies Children Multivitamin Tablet,Chewable 1 tab PO DAILY hydrocodone-acetaminophen 5-325 mg tablet 1 tab PO Q8H PRN (Reason: pain) Qty: 10 0RF Referrals: Gimenez,HEATH BobP [Primary Care Provider] - Patient Instructions: Abdominal Pain (ED) Coding Level of Care Code ED 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
[2022-09-11 11:42] LABS: Lipase 75 U/L (13-60)
[2022-09-11] MEDS: sodium chloride 0.9% 1,000 ML 999 ML IV (12:16)
[2022-09-11] MEDS: iohexol 350 mg/mL 500 mL Btl (per mL) IV (12:51)
[2022-09-11 13:24] VITALS: PULSE 55; RESP 18; O2SAT 99
[2022-09-11] MEDS: morphine 4 mg/mL SDV 1 mL IVP ×2 (13:30→17:53)
[2022-09-11] MEDS: ondansetron 2 mg/ML SDV 2 mL 4 MG IVP (13:30)
[2022-09-11 15:57] VITALS: BP 140/99; PULSE 54; RESP 18; O2SAT 96
[2022-09-11 17:56] VITALS: PULSE 56; RESP 18; O2SAT 99
== END 2022-09-11 17:58 | disposition short-term general hospital (02) ==
PROVIDERS: Family Medicine; Emergency Provider Emergency Medicine; PCP Nurse Practitioner Family
DX: K86.9 Disease of pancreas, unspecified (principal); K83.8 Other specified diseases of biliary tract; K85.90 Acute pancreatitis without necrosis or infection, unspecified; F17.210 Nicotine dependence, cigarettes, uncomplicated
CPT/HCPCS: 36415; 74177; 80053; 81001; 83690; 83735; 85025; 96361; 96374; 96375; 96376; 99285; J2270; J2405; J7030; Q9967

== ENCOUNTER 2022-09-15 18:19 | Emergency (ER) | payer MEDICARE, SELFPAY ==
[2022-09-15 18:33] VITALS: BP 131/73; PULSE 102; RESP 16; TEMP 36.7; O2SAT 95; BMI 22.2
--- NOTE | 2022-09-15 20:17 | ED_ITS ---
Documented by User: HARPER Busby 09/16/22 00:47 HPI - Abdominal Pain General: Chief Complaint: Abdominal Pain Stated Complaint: abd pain post op, pancreatitis Time Seen by Provider: 09/15/22 19:46 History of Present Illness: Patient is a 72-year-old male who comes to the ED with abdominal pain. Patient was seen here for same complaint back on September 11. Patient was transferred to [facility] in [place] and then MR CP and/or ERCP was performed. Patient states that they went in with the scope and removed the bile duct obstruction. He was released from hospital earlier this morning. Patient says he still having abdominal pain and he is able to eat and drink some food and fluids and then about 2 to 3 hours later he has bad abdominal pain. Patient says he ate some breakfast at the hospital this morning and a couple hours later after he was discharged she started having abdominal pain again. Abdominal pain is located in the upper abdomen. He rates his pain currently a 10 out of 10. Pain is all throughout upper abdomen and radiates down to left and right side of abdomen and also radiates up into his chest. Endorses nausea and vomiting as well. Associated Symptoms: Reports nausea and vomiting; Denies chills, constipation, diarrhea, dysuria, fever(s), hematochezia and hematuria Review of Systems Const: Denies: fever(s), chills or fatigue Eyes: Denies: change in vision or eye discomfort ENMT: Denies: throat pain, odynophagia, nasal discharge or nasal congestion Card: Denies: chest pain, palpitations, edema, swelling of feet/ankles, dyspnea on exertion or orthopnea Resp: Denies: dyspnea, productive cough or non-productive cough GI: Reports: abdominal pain, nausea and vomiting; Denies: diarrhea, constipation or hematochezia : Denies: flank pain, difficulty urinating, dysuria or hematuria Musc: Denies: neck pain, back pain or extremity swelling Skin/Breast: Denies: rash or new lesions Neuro: Denies: headache(s), numbness in extremities or weakness in extremities PFS ED PFSH: Medical History Alcohol abuse Bipolar 1 disorder Insomnia Pancreatitis Smoker Surgical History History of cataract surgery No pertinent past surgical history Family History Other Cancer Psychiatric illness Denies family history of Diabetes Clotting disorder Dementia Chronic kidney disease (CKD) Social History Smoking and tobacco status: current every day smoker cigarettes Packs smoked per day: 3 Years cigarettes smoked: 45 Alcohol intake: current Alcohol intake frequency: 3 or more drinks per day Alcohol type: hard liquor Substance/Drug Use: never Household members: spouse Housing: House Marital status: Current occupation: On disability because of lower back pain and scoliosis Physical Exam Const: COMMON NORMALS: patient oriented x3 and alert GENERAL APPEARANCE: cooperative HENMT: COMMON NORMALS: normocephalic HEAD & SCALP: normocephalic MOUTH: Normal oral and palatal mucosa present THROAT: posterior oropharynx normal and uvula midline Neck/C-Spine: COMMON NORMALS: supple GENERAL: Yes normal visual inspection Resp: COMMON NORMALS: normal respiratory effort, No retractions, No use of accessory muscles and clear to auscultation bilaterally AUSCULTATION: clear to auscultation bilaterally Cardio: COMMON NORMALS: regular rate, regular rhythm, S1 normal heart sound present, S2 normal heart sound present, No gallops present (Cardio), No clicks present (Cardio), No murmurs present (Cardio) and Peripheral pulses 2+ throughout RATE: regular rate RHYTHM: regular rhythm HEART SOUNDS: S1 normal heart sound present and S2 normal heart sound present PERIPHERAL PULSES: Peripheral pulses 2+ throughout GI: COMMON NORMALS: Normal to inspection, nondistended, normoactive bowel sounds present, Soft to palpation and no masses PALPATION: Yes Soft to palpation and Yes Tenderness to palpation present (GI) Details: LUQ and RUQ : COMMON NORMALS: Yes no CVA tenderness BLADDER/KIDNEY EXAM: Yes no CVA tenderness Back/Pelvis: COMMON NORMALS: no CVA tenderness Extremity: COMMON NORMALS: normal to inspection Neuro: COMMON NORMALS: patient oriented x3 SENSORIUM/ORIENTATION: Yes alert GAIT: Yes Normal gait present Skin: GENERAL SKIN EXAM: dry skin Course Vital Signs: Vital signs: Vital Signs Temperature 98.1 F 09/15/22 18:33 Pulse Rate 65 09/16/22 00:28 Respiratory Rate 16 09/16/22 00:28 Blood Pressure 160/67 09/16/22 00:28 Pulse Oximetry 95 09/16/22 00:28 Oxygen Delivery Me thod Room Air 09/15/22 22:30 MDM - Abdominal Pain Medical Decision Making Patient is a 72-year-old male comes to the ED with abdominal pain. Patient was seen here for same complaint back on September 11. Patient was transferred to [facility] in [place] and then MR CP and/or ERCP was performed. Patient states that they went in with the scope and removed the bile duct obstruction. He was released from hospital earlier this morning. Vitals stable. Lipase 405, white blood cell count 14.5 and the rest of CBC, CMP, troponins and UA were unremarkable. CT shows mild pancreatitis but no other acute findings noted. I offered admission to patient but he did not want to be admitted and would rather try outpatient treatment first. P.o. fluid challenge here in the ED and he was able to tolerate clear liquids. He was stable for discharge home and diagnosed with pancreatitis. Told to be on an n.p.o. diet for the next 24 to 48 hours and slowly advance diet as tolerated. Strict return to ED precautions given. Patient understood and agreed with plan. Dr. Gupta reviewed case and agrees with plan. Lab Data I reviewed the patient's lab results. 09/15/22 20:29 09/15/22 20:29 Labs/Radiology: Radiology Impressions Chest X-Ray 09/15/22 20:40 IMPRESSION: 1. Left lower lobe atelectasis versus infiltrate. 2. Emphysematous changes. Abdomen/Pelvis CT 09/15/22 21:44 IMPRESSION: 1. Possible mild peripancreatic edema suspected largely about the pancreatic head, please correlate for a mild pancreatitis. 2. Bibasilar atelectasis versus infiltrate. 3. Hepatic steatosis. 4. Stent in the common bile duct. 5. Left kidney cyst with several thin internal septations with several additional left kidney cysts which appear benign. Bosniak [address] without and with contrast or MR without and with contrast at 6 months and 12 months, then yearly for 5 years. 6. Left kidney nonobstructive renal calyceal stone. 7. Urinary bladder wall thickening may be due to nondistention or chronic outflow obstruction, please correlate for cystitis. 8. Prostate gland enlarged indenting the base of the urinary bladder. 9. Small right inguinal hernia containing omentum without bowel. COMMENTS: Consistent with the [place] [employer]'s Incidental Findings Committee white paper (J Am Rita Radiol 2018): Any incidental renal lesion less than 1 cm or classified as too small to characterize, or any incidental cystic renal lesion characterized as simple-appearing, is likely benign. No follow-up imaging is recommended for these lesions per consensus recommendations based on imaging criteria. Laboratory Results WBC 14.5 10^3/uL (4.0-10.0) H 09/15/22 20: RBC 4.96 10^6/uL (4.1-5.3) 09/15/22 20: Hgb 16.3 g/dL (11.7-16.6) 09/15/22 20: Hct 48.4 % (42.0-52.0) 09/15/22 20: MCV 97.6 fl (80-94) H 09/15/22 20: MCH 32.9 pg (28.0-34.0) 09/15/22 20: MCHC 33.7 g/dL (30.0-36.0) 09/15/22 20: RDW 14.7 % (12.1-15.1) 09/15/22 20: Plt Count 258 10^3/cmm (130-400) 09/15/22 20: MPV 9.5 fL (7.4-10.4) 09/15/22 20: Neut % (Auto) 71.6 % 09/15/22 20: Lymph % (Auto) 14.8 % 09/15/22 20: Bledsoe % (Auto) 11.4 % 09/15/22 20: Eos % (Auto) 1.0 % 09/15/22 20: Baso % (Auto) 0.7 % 09/15/22 20: Neut # (Auto) 10.42 10^3/uL (1.8-7.7) H 09/15/22 20: Lymph # (Auto) 2.2 10^3/uL (0.8-4.8) 09/15/22 20: Bledsoe # (Auto) 1.7 10^3/uL (0.2-0.9) H 09/15/22 20: Eos # (Auto) 0.1 10^3/uL (0.0-0.8) 09/15/22 20: Baso # (Auto) 0.1 10^3/uL (0.0-0.1) 09/15/22 20: Nucleated RBC % (auto) 0 % 09/15/22 20: Nucleated RBCs # 0.0 /100WBC 09/15/22 20: Sodium 135 mmol/L (136-145) L 09/15/22 20: Potassium 4.0 mmol/L (3.5-5.1) 09/15/22 20: Chloride 94 mmol/L (98-107) L 09/15/22 20: Carbon Dioxide 27 mmol/L (22-29) 09/15/22: Anion Gap 18.0 (5-19) 09/15/22 20: BUN 11 mg/dL (8-23) 09/15/22 20: Creatinine 0.7 mg/dL (0.7-1.2) 09/15/22: GFR Calculation 111.5 mL/min (90-130) 09/15/22: Glucose 98 mg/dL (65-115) 09/15/22 20: Calculated Osmolality 279 mOsm/kg (285-295) L 09/15/22 20: Lactic Acid 1.4 mmol/L (0.5-2.2) 09/15/22: Calcium 9.5 mg/dL (8.5-10.5) 09/15/22 20: Total Bilirubin 1.4 mg/dL (0.15-1.2) H 09/15/22 20: AST 25 U/L (0-40) 09/15/22 20: ALT 83 U/L (0-41) H 09/15/22 20: Alkaline Phosphatase 224 U/L (40-130) H 09/15/22 20: Troponin T Baseline 10 ng/L (0-15) 09/15/22 20: Troponin T 120 Minute 10.34 ng/L (0-15) 09/15/22: Delta Troponin T 0.34 ABS# (0-10) 09/15/22: Total Protein 7.6 g/dL (6.6-8.7) 09/15/22:29 Albumin 4.2 g/dL (3.5-5.2) 09/15/22 20:29 Globulin 3.4 g/dL (1.3-4.6) 09/15/22 20:29 Lipase 405 U/L (13-60) H 09/15/22 20:29 Urine Color Yellow (Yellow) 09/15/22 22:25 Urine Appearance Clear (CLEAR) 09/15/22 22:25 Urine pH 5 (5-7) 09/15/22 22:25 Ur Specific Huson 1.015 (1.005-1.030) 09/15/22 22:25 Urine Protein Neg (Negative) 09/15/22 22:25 Urine Glucose (UA) Norm (Normal) 09/15/22 22:25 Urine Ketones 2+ (Negative) H 09/15/22 22:25 Urine Blood 2+ (Negative) H 09/15/22 22:25 Urine Nitrate Negative (Negative) 09/15/22 22:25 Urine Bilirubin Neg (Negative) 09/15/22 22:25 Urine Urobilinogen Norm mg/dL (Negative) 09/15/22 22:25 Ur Leukocyte Esterase Negative (Negative) 09/15/22 22:25 Urine RBC 0-4 /hpf (0-2) H 09/15/22 22:25 Urine WBC 0-4 /hpf (0-5) H 09/15/22 22:25 Ur Squamous Epith Cells 0-4 /hpf (0-5) H 09/15/22 22:25 Amorphous Sediment Not Reportable 09/15/22 22:25 Urine Bacteria Trace /hpf (NONE) 09/15/22 22:25 EKG Data EKG 1: EKG interpretation date: 09/15/22 Interpretation: Sinus rhythm, 66 bpm, no ST segment elevation or depression seen. Discharge Plan Discharge Patient Disposition: Home Clinical Impression: Pancreatitis Qualifiers: Chronicity: acute Pancreatitis type: unspecified pancreatitis type Acute pancreatitis complication: no infection or necrosis Qualified Code(s): K85.90 - Acute pancreatitis without necrosis or infection, unspecified Condition: Stable Prescriptions: New metoclopramide HCl 10 mg tablet 10 mg PO Q6H PRN (Reason: nausea and vomiting) Qty: 30 0RF No Action Gummies Children Multivitamin Tablet,Chewable 1 tab PO DAILY hydrocodone-acetaminophen 5-325 mg tablet 1 tab PO Q8H PRN (Reason: pain) Qty: 10 0RF Discharge Orders: Discharge ED (Routine); Ordered 09/16/22 Ordered By: Ag Roberts Referrals: Lisbeth Gimenez FNP [Primary Care Provider] - Discharge Diet: Advance as tolerated and Clear Liquid Discharge Activity: Increase activity as tolerated Patient Instructions: Opioid Safety, Pancreatitis Activity Restrictions/Additional Instructions: Follow-up with medical provider as directed in the next 3 to 5 days for reevaluation. Clear liquid diet for the next 48 hours and slowly advance diet as tolerated. Take medications as prescribed. Return to the ER or your medical provider if condition worsens. Please read and understand discharge instructions. Thank you for choosing [facility] for your healthcare needs today. Please realize this is an emergency room and that we are providing you with a medical screening exam and this may not be complete and all inclusive of all the testing and or work up that you may need to determine your ailment or severity of your illness. It is very important that you follow up as instructed or that you return to the Emergency Department should you have concerns or if your condition changes or worsens in any way. Coding Level of Care Code ED Traffic Control Technician for Chg Fwd Documented by User: Dwayne Gupta DO 09/16/22 04:02 HPI - Abdominal Pain General: Chief Complaint: Abdominal Pain Stated Complaint: abd pain post op, pancreatitis Time Seen by Provider: 09/15/22 19:46 [facility] ED PFSH: Medical History Alcohol abuse Bipolar 1 disorder Insomnia Pancreatitis Smoker Surgical History History of cataract surgery No pertinent past surgical history Family History Other Cancer Psychiatric illness Denies family history of Diabetes Clotting disorder Dementia Chronic kidney disease (CKD) Social History Smoking and tobacco status: current every day smoker cigarettes Packs smoked per day: 3 Years cigarettes smoked: 45 Alcohol intake: current Alcohol intake frequency: 3 or more drinks per day Alcohol type: hard liquor Substance/Drug Use: never Household members: spouse Housing: House Marital status: Current occupation: On disability because of lower back pain and scoliosis Course Vital Signs: Vital signs: Vital Signs Temperature 98.1 F 09/15/22 18:33 Pulse Rate 65 09/16/22 00:28 Respiratory Rate 16 09/16/22 00:28 Blood Pressure 160/67 09/16/22 00:28 Pulse Oximetry 95 09/16/22 00:28 Oxygen Delivery Me thod Room Air 09/15/22 22:30 MDM - Abdominal Pain Medical Decision Making Patient is a 72-year-old male comes to the ED with abdominal pain. Patient was seen here for same complaint back on September 11. Patient was transferred to [facility] in [place] and then MR GENO and/or ERCP was performed. Patient states that they went in with the scope and removed the bile duct obstruction. He was released from hospital earlier this morning. Vitals stable. Lipase 405, white blood cell count 14.5 and the rest of CBC, CMP, troponins and UA were unremarkable. CT shows mild pancreatitis but no other acute findings noted. I offered admission to patient but he did not want to be admitted and would rather try outpatient treatment first. P.o. fluid challenge here in the ED and he was able to tolerate clear liquids. He was stable for discharge home and diagnosed with pancreatitis. Told to be on an n.p.o. diet for the next 24 to 48 hours and slowly advance diet as tolerated. Strict return to ED precautions given. Patient understood and agreed with plan. Dr. Gupta reviewed case and agrees with plan. This patient was originally seen by Mr. Alejandra PA-C.? I agree with his history, evaluation, and treatment. Lab Data 09/15/22 20:29 09/15/22 20:29 Labs/Radiology: Radiology Impressions Chest X-Ray 09/15/22 20:40 IMPRESSION: 1. Left lower lobe atelectasis versus infiltrate. 2. Emphysematous changes. Abdomen/Pelvis CT 09/15/22 21:44 IMPRESSION: 1. Possible mild peripancreatic edema suspected largely about the pancreatic head, please correlate for a mild pancreatitis. 2. Bibasilar atelectasis versus infiltrate. 3. Hepatic steatosis. 4. Stent in the common bile duct. 5. Left kidney cyst with several thin internal septations with several additional left kidney cysts which appear benign. Bosniak [address] without and with contrast or MR without and with contrast at 6 months and 12 months, then yearly for 5 years. 6. Left kidney nonobstructive renal calyceal stone. 7. Urinary bladder wall thickening may be due to nondistention or chronic outflow obstruction, please correlate for cystitis. 8. Prostate gland enlarged indenting the base of the urinary bladder. 9. Small right inguinal hernia containing omentum without bowel. COMMENTS: Consistent with the [place] [employer]'s Incidental Findings Committee white paper (J Am Rita Radiol 2018): Any incidental renal lesion less than 1 cm or classified as too small to characterize, or any incidental cystic renal lesion characterized as simple-appearing, is likely benign. No follow-up imaging is recommended for these lesions per consensus recommendations based on imaging criteria. Laboratory Results WBC 14.5 10^3/uL (4.0-10.0) H 09/15/22 20: RBC 4.96 10^6/uL (4.1-5.3) 09/15/22 20: Hgb 16.3 g/dL (11.7-16.6) 09/15/22 20: Hct 48.4 % (42.0-52.0) 09/15/22 20: MCV 97.6 fl (80-94) H 09/15/22 20:29 MCH 32.9 pg (28.0-34.0) 09/15/22 20: MCHC 33.7 g/dL (30.0-36.0) 09/15/22 20: RDW 14.7 % (12.1-15.1) 09/15/22 20: Plt Count 258 10^3/cmm (130-400) 09/15/22 20: MPV 9.5 fL (7.4-10.4) 09/15/22 20: Neut % (Auto) 71.6 % 09/15/22 20: Lymph % (Auto) 14.8 % 09/15/22 20: Bledsoe % (Auto) 11.4 % 09/15/22 20: Eos % (Auto) 1.0 % 09/15/22 20: Baso % (Auto) 0.7 % 09/15/22 20: Neut # (Auto) 10.42 10^3/uL (1.8-7.7) H 09/15/22 20: Lymph # (Auto) 2.2 10^3/uL (0.8-4.8) 09/15/22 20: Bledsoe # (Auto) 1.7 10^3/uL (0.2-0.9) H 09/15/22 20: Eos # (Auto) 0.1 10^3/uL (0.0-0.8) 09/15/22 20: Baso # (Auto) 0.1 10^3/uL (0.0-0.1) 09/15/22: Nucleated RBC % (auto) 0 % 09/15/22: Nucleated RBCs # 0.0 /100WBC 09/15/22: Sodium 135 mmol/L (136-145) L 09/15/22: Potassium 4.0 mmol/L (3.5-5.1) 09/15/22: Chloride 94 mmol/L (98-107) L 09/15/22: Carbon Dioxide 27 mmol/L (22-29) 09/15/22: Anion Gap 18.0 (5-19) 09/15/22 20: BUN 11 mg/dL (8-23) 09/15/22: Creatinine 0.7 mg/dL (0.7-1.2) 09/15/22: GFR Calculation 111.5 mL/min (90-130) 09/15/22 20: Glucose 98 mg/dL (65-115) 09/15/22 20: Calculated Osmolality 279 mOsm/kg (285-295) L 09/15/22: Lactic Acid 1.4 mmol/L (0.5-2.2) 09/15/22: Calcium 9.5 mg/dL (8.5-10.5) 09/15/22: Total Bilirubin 1.4 mg/dL (0.15-1.2) H 09/15/22: AST 25 U/L (0-40) 09/15/22 20: ALT 83 U/L (0-41) H 09/15/22 20: Alkaline Phosphatase 224 U/L (40-130) H 09/15/22 20: Troponin T Baseline 10 ng/L (0-15) 09/15/22 20: Troponin T 120 Minute 10.34 ng/L (0-15) 09/15/22 22: Delta Troponin T 0.34 ABS# (0-10) 09/15/22 22: Total Protein 7.6 g/dL (6.6-8.7) 09/15/22 20: Albumin 4.2 g/dL (3.5-5.2) 09/15/22 20: Globulin 3.4 g/dL (1.3-4.6) 09/15/22 20: Lipase 405 U/L (13-60) H 09/15/22 20: Urine Color Yellow (Yellow) 09/15/22 22:25 Urine Appearance Clear (CLEAR) 09/15/22 22: Urine pH 5 (5-7) 09/15/22 22:25 Ur Specific Huson 1.015 (1.005-1.030) 09/15/22 22: Urine Protein Neg (Negative) 09/15/22 22:25 Urine Glucose (UA) Norm (Normal) 09/15/22 22:25 Urine Ketones 2+ (Negative) H 09/15/22 22:25 Urine Blood 2+ (Negative) H 09/15/22 22:25 Urine Nitrate Negative (Negative) 09/15/22 22: Urine Bilirubin Neg (Negative) 09/15/22 22:25 Urine Urobilinogen Norm mg/dL (Negative) 09/15/22 22:25 Ur Leukocyte Esterase Negative (Negative) 09/15/22 22:25 Urine RBC 0-4 /hpf (0-2) H 09/15/22 22:25 Urine WBC 0-4 /hpf (0-5) H 09/15/22 22:25 Ur Squamous Epith Cells 0-4 /hpf (0-5) H 09/15/22 22:25 Amorphous Sediment Not Reportable 09/15/22 22:25 Urine Bacteria Trace /hpf (NONE) 09/15/22 22:25 Discharge Plan Discharge Patient Disposition: Home Clinical Impression: Pancreatitis Qualifiers: Chronicity: acute Pancreatitis type: unspecified pancreatitis type Acute pancreatitis complication: no infection or necrosis Qualified Code(s): K85.90 - Acute pancreatitis without necrosis or infection, unspecified Condition: Stable Prescriptions: New metoclopramide HCl 10 mg tablet 10 mg PO Q6H PRN (Reason: nausea and vomiting) Qty: 30 0RF No Action Gummies Children Multivitamin Tablet,Chewable 1 tab PO DAILY hydrocodone-acetaminophen 5-325 mg tablet 1 tab PO Q8H PRN (Reason: pain) Qty: 10 0RF Discharge Orders: Discharge ED (Routine); Ordered 09/16/22 Ordered By: Ag Roberts Referrals: Lisbeth Gimenez FNP [Primary Care Provider] - Discharge Diet: Advance as tolerated and Clear Liquid Discharge Activity: Increase activity as tolerated Patient Instructions: Opioid Safety, Pancreatitis Activity Restrictions/Additional Instructions: Follow-up with medical provider as directed in the next 3 to 5 days for reevaluation. Clear liquid diet for the next 48 hours and slowly advance diet as tolerated. Take medications as prescribed. Return to the ER or your medical provider if condition worsens. Please read and understand discharge instructions. Thank you for choosing [facility] for your healthcare needs today. Please realize this is an emergency room and that we are providing you with a medical screening exam and this may not be complete and all inclusive of all the testing and or work up that you may need to determine your ailment or severity of your illness. It is very important that you follow up as instructed or that you return to the Emergency Department should you have concerns or if your condition changes or worsens in any way. Coding Level of Care Code ED Traffic Control Technician for Chey Howe
[2022-09-15] MEDS: sodium chloride 0.9% 1,000 ML 999 ML IV ×2 (20:26→22:30)
[2022-09-15] MEDS: ondansetron 2 mg/ML SDV 2 mL 4 MG IVP (20:26)
[2022-09-15 20:35] VITALS: BP 126/91; PULSE 68; RESP 16; O2SAT 97
[2022-09-15 20:36] VITALS: RESP 16
[2022-09-15] MEDS: morphine 4 mg/mL SDV 1 mL IVP (20:36)
[2022-09-15 20:39] LABS: Basophils # 0.1 10^3/uL (0.0-0.1); Basophils % 0.7 %; Eosinophils # 0.1 10^3/uL (0.0-0.8); Hematocrit 48.4 % (42.0-52.0); Hemoglobin 16.3 g/dL (11.7-16.6); Lymphocytes # 2.2 10^3/uL (0.8-4.8); Lymphocytes % 14.8 %; Mean Corpuscular HGB Conc 33.7 g/dL (30.0-36.0); Mean Corpuscular Hemoglobin 32.9 pg (28.0-34.0); Mean Corpuscular Volume 97.6 fl (80-94); Mean Platelet Volume 9.5 fL (7.4-10.4); Monocytes # 1.7 10^3/uL (0.2-0.9); Monocytes % 11.4 %; Neutrophils # 10.42 10^3/uL (1.8-7.7); Neutrophils % 71.6 %; Nucleated Red Blood Cells % 0 %; Platelet Count 258 10^3/cmm (130-400); Red Blood Count 4.96 10^6/uL (4.1-5.3); Red Cell Distribution Width 14.7 % (12.1-15.1); White Blood Count 14.5 10^3/uL (4.0-10.0)
--- NOTE | 2022-09-15 20:40 | ECG_ITS ---
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 Measurements Intervals [place] Rate: 66 P: -46 MS: 143 QRS: -23 QRSD: 90 T: 40 QT: 394 QTc: 414 Interpretive Statements ECTOPIC ATRIAL RHYTHM BORDERLINE LEFT AXIS DEVIATION [QRS AXIS < -20] POSSIBLE RIGHT VENTRICULAR CONDUCTION DELAY [RSR (QR) IN V1/V2] ABNORMAL RHYTHM ECG Compared to ECG 09/15/2021 09:40:49 Ectopic atrial rhythm now present Bradycardia, nonsinus no longer present Electronically Signed On 09-16-2022 5:54:49 CDT by Magui Lester M.D. [email or web address]
--- NOTE | 2022-09-15 20:40 | XRR_ITS ---
PROCEDURE INFORMATION: Exam: XR Chest Exam date and time: 09/15/2022 8:47 PM Age: 72 years old Clinical indication: Pain; Chest pressure; Additional info: Epigastric pain TECHNIQUE: Imaging protocol: Radiologic exam of the chest. Views: 1 view. COMPARISON: CR XR chest 2V* [id number] 08/06/2021 5:33 AM FINDINGS: Lungs: Left lower lobe atelectasis versus infiltrate. Emphysematous changes. Pleural spaces: Unremarkable. No pleural effusion. No pneumothorax. Heart/Mediastinum: Unremarkable. No cardiomegaly. Bones/joints: Unremarkable. XR/XR chest 1V portable [id number] IMPRESSION: 1. Left lower lobe atelectasis versus infiltrate. 2. Emphysematous changes.
[2022-09-15 21:05] LABS: Alanine Aminotransferase 83 U/L (0-41); Albumin Level 4.2 g/dL (3.5-5.2); Alkaline Phosphatase 224 U/L (40-130); Blood Urea Nitrogen 11 mg/dL (8-23); Calcium 9.5 mg/dL (8.5-10.5); Carbon Dioxide 27 mmol/L (22-29); Chloride 94 mmol/L (98-107); Globulin 3.4 g/dL (1.3-4.6); Glomerular Filtration Rate 111.5 mL/min (90-130); Glucose 98 mg/dL (65-115); Osmolality Calculated 279 mOsm/kg (285-295); Sodium 135 mmol/L (136-145); Total Bilirubin 1.4 mg/dL (0.15-1.2); Total Protein 7.6 g/dL (6.6-8.7)
[2022-09-15 21:06] LABS: Lactic Sepsis W/Reflex 1.4 mmol/L (0.5-2.2)
[2022-09-15 21:40] LABS: Troponin(5th) Baseline 10 ng/L (0-15)
[2022-09-15 21:41] LABS: Lipase 405 U/L (13-60)
[2022-09-15 21:42] LABS: Aspartate Amino Transferase 25 U/L (0-40)
--- NOTE | 2022-09-15 21:44 | CTR_ITS ---
PROCEDURE INFORMATION: Exam: CT Abdomen And Pelvis With Contrast Exam date and time: 09/15/2022 10:44 PM Age: 72 years old Clinical indication: Abdominal pain; Epigastric; Additional info: Abdominal pain, n/v, elevated lipase TECHNIQUE: Imaging protocol: Computed tomography of the abdomen and pelvis with contrast. Radiation optimization: All CT scans at this facility use at least one of these dose optimization techniques: automated exposure control; mA and/or kV adjustment per patient size (includes targeted exams where dose is matched to clinical indication); or iterative reconstruction. Contrast material: OMNI 350; Contrast volume: 100 ml; Contrast route: INTRAVENOUS (IV); REPORTING DATA: Count of CT and Cardiac NM exams in prior 12 months: This patient has received [address] and 0 known cardiac nuclear medicine studies in the 12 months prior to the current study. COMPARISON: CT abdomen pelvis w con* [id number] 09/11/2022 12:40 PM RADIATION DOSE METRICS: Total DLP (mGy-cm): 407.94 FINDINGS: Lungs: Bibasilar atelectasis versus infiltrate. Liver: Hepatic steatosis. Gallbladder and bile ducts: Stent in the common bile duct. Pancreas: Possible mild peripancreatic edema suspected largely about the pancreatic head, please correlate for a mild pancreatitis. Spleen: Normal. No splenomegaly. Adrenal glands: Normal. No mass. Kidneys and ureters: Left kidney cyst with several thin internal septations with several additional left kidney cysts which appear benign. Left kidney nonobstructive renal calyceal stone. Stomach and bowel: Unremarkable. No obstruction. No mucosal thickening. Appendix: No evidence of appendicitis. Intraperitoneal space: Unremarkable. No free air. No significant fluid collection. Vasculature: Unremarkable. No abdominal aortic aneurysm. Lymph nodes: Unremarkable. No enlarged lymph nodes. Urinary bladder: Urinary bladder wall thickening may be due to nondistention or chronic outflow obstruction, please correlate for cystitis. Reproductive: Prostate gland enlarged indenting the base of the urinary bladder. Bones/joints: Unremarkable. No acute fracture. Soft tissues: Small right inguinal hernia containing omentum without bowel. CT/CT abdomen pelvis w con* [id number] IMPRESSION: 1. Possible mild peripancreatic edema suspected largely about the pancreatic head, please correlate for a mild pancreatitis. 2. Bibasilar atelectasis versus infiltrate. 3. Hepatic steatosis. 4. Stent in the common bile duct. 5. Left kidney cyst with several thin internal septations with several additional left kidney cysts which appear benign. Bosniak [address] without and with contrast or MR without and with contrast at 6 months and 12 months, then yearly for 5 years. 6. Left kidney nonobstructive renal calyceal stone. 7. Urinary bladder wall thickening may be due to nondistention or chronic outflow obstruction, please correlate for cystitis. 8. Prostate gland enlarged indenting the base of the urinary bladder. 9. Small right inguinal hernia containing omentum without bowel. COMMENTS: Consistent with the [employer]'s Incidental Findings Committee white paper (J Am Rita Radiol 2018): Any incidental renal lesion less than 1 cm or classified as too small to characterize, or any incidental cystic renal lesion characterized as simple-appearing, is likely benign. No follow-up imaging is recommended for these lesions per consensus recommendations based on imaging criteria.
[2022-09-15 22:30] VITALS: BP 163/83; PULSE 64; RESP 14; O2SAT 98
[2022-09-15] MEDS: metoclopramide 5 mg/mL SDV 2 mL 10 MG IVP (22:35)
--- NOTE | 2022-09-15 22:40 | ECG_ITS ---
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 Measurements Intervals [place] Rate: 55 P: -19 SD: 144 QRS: -20 QRSD: 94 T: 47 QT: 425 QTc: 410 Interpretive Statements SINUS BRADYCARDIA INCOMPLETE RIGHT BUNDLE BRANCH BLOCK [90+ ms QRS DURATION, TERMINAL R IN V1/V2, 40+ ms S IN I/aVL/V4/V5/V6] NONSPECIFIC T-WAVE ABNORMALITY Compared to ECG 09/15/2022 20:57:04 Incomplete right bundle-branch block now present T-wave abnormality now present Ectopic atrial rhythm no longer present Electronically Signed On 09-16-2022 14:01:47 CDT by Sea Belle M.D. [email or web address]/[id number]
[2022-09-15 22:42] LABS: Add Urine Microscopic? YES; Bilirubin Urine Neg (Negative); Blood Urine 2+ (Negative); Glucose Urine UA Norm (Normal); Ketones Urine 2+ (Negative); Leukocyte Esterase Urine Negative (Negative); Nitrate Urine Negative (Negative); Protein Urine Neg (Negative); Specific Gravity, Urine 1.015 (1.005-1.030); Urine Appearance Clear (CLEAR); Urine Color Yellow (Yellow); Urobilinogen Urine Norm (Negative); pH Urine 5 (5-7)
[2022-09-15 22:45] LABS: Bacteria Urine TRACE /hpf; RBC Urine 0-4 /hpf (0-2); Squamous Epithelial Cell Urine 0-4 /hpf (0-5); WBC Urine 0-4 /hpf (0-5)
[2022-09-15] MEDS: iohexol 350 mg/mL 500 mL Btl (per mL) IV (22:51)
[2022-09-15 22:59] LABS: Troponin 5 2HR 10.34 ng/L (0-15)
[2022-09-15 23:27] LABS: Troponin 5 2HR Delta 0.34 ABS# (0-10)
[2022-09-15 23:30] VITALS: BP 163/76; PULSE 62; RESP 16; O2SAT 100
[2022-09-15 23:51] VITALS: RESP 16
[2022-09-15] MEDS: HYDROmorphone 1 mg/mL INJ 1 mL IVP (23:51)
--- NOTE | 2022-09-16 00:27 | PC.NURSE ---
oxy/ apap x 2 tabs sent with patient per provider. Witnessed by Héctor hamilton.
[2022-09-16 00:28] VITALS: BP 160/67; PULSE 65; RESP 16; O2SAT 95
== END 2022-09-16 00:33 | disposition home or self-care (01) ==
PROVIDERS: Emergency Provider Physician Assistant; PCP Nurse Practitioner Family
DX: K85.90 Acute pancreatitis without necrosis or infection, unspecified (principal)
CPT/HCPCS: 71045; 74177; 80053; 81001; 83605; 83690; 84484; 85025; 93005; 96361; 96374; 96375; 99285; J1170; J2270; J2405; J2765; J7030; Q9967

== ENCOUNTER 2023-01-19 06:06 | Outpatient (CLI) | payer MEDICARE, SELFPAY ==
[2023-01-19 06:31] LABS: Basophils # 0.1 10^3/uL (0.0-0.1); Basophils % 0.9 %; Eosinophils # 0.3 10^3/uL (0.0-0.8); Eosinophils % 2.9 %; Hematocrit 46.3 % (37-53); Lymphocytes # 2.6 10^3/uL (0.8-4.8); Lymphocytes % 22.2 %; Mean Corpuscular HGB Conc 33.3 g/dL (30-55); Mean Corpuscular Hemoglobin 32.9 pg (27-33); Mean Corpuscular Volume 98.9 fl (82-101); Mean Platelet Volume 9.3 fL (7.4-10.4); Monocytes # 1.5 10^3/uL (0.2-0.9); Monocytes % 13.1 %; Neutrophils # 6.91 10^3/uL (1.8-7.7); Neutrophils % 60.1 %; Nucleated Red Blood Cells % 0 %; Platelet Count 253 10^3/cmm (157-399); Red Blood Count 4.68 10^6/uL (3.85-5.65); Red Cell Distribution Width 14.4 % (12.1-15.1); White Blood Count 11.49 10^3/uL (3.29-11.43)
--- NOTE | 2023-01-19 06:41 | XR_ITS ---
WS: [id number] XR abdomen min 2V [id number] REASON FOR EXAM: CHECK BILE DUCT STENT, BILE DUCT STRICTURE FINDINGS: No previous plain film examination for comparison. Stent in position in the upper abdomen near the midline between to L1 and L4. There is no crimping of the stent identifiable on this single view. Based on previous CT scan of 09/15/2022 and the position of the smaller nonmetallic common duct stent present on that examination the current stent placement would appear to be within the common bile charan t. No air is seen within the intrahepatic biliary radicles. IMPRESSION: Presumed biliary stent appears patent. Position is consistent with common duct placement. No previous plain film examination for comparison.
[2023-01-19 06:51] LABS: Alanine Aminotransferase 26 U/L (0-41); Albumin Level 3.8 g/dL (3.5-5.2); Alkaline Phosphatase 140 U/L (40-130); Aspartate Amino Transferase 19 U/L (0-40); Globulin 3.3 g/dL (1.3-4.6); Lipase 32 U/L (13-60); Total Bilirubin 0.2 mg/dL (0.15-1.2); Total Protein 7.1 g/dL (6.6-8.7)
== END 2023-01-19 06:07 | disposition home or self-care (01) ==
PROVIDERS: PCP Family Medicine; Visit Provider Nurse Practitioner
DX: K83.1 Obstruction of bile duct (principal); Z96.89 Presence of other specified functional implants
CPT/HCPCS: 36415; 74019; 80076; 83690; 85025

== ENCOUNTER 2024-07-13 22:07 | Emergency (ER) | payer MEDICARE, SELFPAY ==
[2024-07-13] VITALS (18 sets, daily range): BP systolic 98–147; BP diastolic 62–112; PULSE 59–152; RESP 18–34; TEMP 36.9; O2SAT 85–96; BMI 22.2
--- NOTE | 2024-07-13 22:09 | W.ED.ABDPA2 ---
HPI - Abdominal Pain General: Chief Complaint: Chest Pain Stated Complaint: A FIB Time Seen by Provider: 07/13/24 22:09 History of Present Illness: Patient presents with acute onset of symptoms following dinner, reporting weakness, dizziness, and fatigue that has been ongoing for approximately one month. After eating macaroni and cheese tonight, patient experienced worsening dizziness, sinus pain, orbital pressure, neck discomfort, and throat constriction. Most notably, patient detected irregular heartbeat with variable rates, describing it as 'flopping' with irregular rhythm. Patient reports chronic sleep issues, averaging 2-3 hours at a time, typically sleeping in a recliner due to back problems and frequent urination from prostate issues. Sleep difficulties have recently become more bothersome. Past Medical History: Previous biliary stent placement (initially plastic, later converted to metal) for blocked bile duct. No known history of hypertension or previously diagnosed arrhythmias. Social History: Active smoker with significant smoking history ('smoked all my life'). Alcohol use reported. No current primary care physician; previous PCP Dr. Alyse Chavez has retired. Related Data Home Medications ?Medication ?Instructions ?Recorded ?Confirmed pediatric multivitamin no.30 1 tab PO DAILY 01/15/20 09/11/22 (Gummies Children Multivitamin chewable tablet) Previous Rx's ?Medication ?Instructions ?Recorded hydrocodone 5 mg-acetaminophen 325 1 tab PO Q8H PRN pain #10 tabs 08/07/ mg tablet metoclopramide HCl 10 mg tablet 10 mg PO Q6H PRN nausea and 09/15/22 vomiting #30 tabs metoprolol tartrate 25 mg tablet 12.5 mg (1/2 x 25 mg) PO DAILY #30 07/14/24 tabs Allergies Allergy/AdvReac Type Severity Reaction Status Date / Time Penicillins Allergy becomes Verified 07/13/24 22:15 overheated and sweating PFSH ED PFSH: Medical History Alcohol abuse Bipolar 1 disorder Insomnia Pancreatitis Smoker Surgical History History of cataract surgery No pertinent past surgical history Family History Other Cancer Psychiatric illness Denies family history of Diabetes Clotting disorder Dementia Chronic kidney disease (CKD) Social History Smoking and tobacco/nicotine status: current every day tobacco/nicotine user cigarettes Packs smoked per day: 3 Years cigarettes smoked: 45 Alcohol intake: current Alcohol intake frequency: 3 or more drinks per day Alcohol type: hard liquor Substance/Drug Use: never Household members: spouse Housing: House Marital status: Current occupation: On disability because of lower back pain and scoliosis Physical Exam Const: COMMON NORMALS: no acute distress, patient oriented x3, alert and well nourished HENMT: COMMON NORMALS: normocephalic HEAD & SCALP: normocephalic Eye: COMMON NORMALS: Equal, round and reactive pupils present, EOMs intact bilaterally and conjunctivae normal CONJUNCTIVA: Yes conjunctivae normal PUPIL: Yes Equal, round and reactive pupils present Neck/C-Spine: COMMON NORMALS: full ROM, no lymphadenopathy, supple, no meningeal signs, no JVD and Thyroid normal THYROID: Thyroid normal Chest: COMMONS NORMALS: normal inspection of the chest and normal palpation of entire chest wall Resp: COMMON NORMALS: normal respiratory effort, No retractions, No use of accessory muscles, clear to auscultation bilaterally and percussion normal AUSCULTATION: clear to auscultation bilaterally PERCUSSION: percussion normal Cardio: COMMON NORMALS: no JVD GI: COMMON NORMALS: Normal to inspection, nondistended, normoactive bowel sounds present, Soft to palpation, non-tender, No hepatosplenomegaly present, no masses and no bruits PALPATION: Yes Soft to palpation and Yes No hepatosplenomegaly present : COMMON NORMALS: Yes no CVA tenderness BLADDER/KIDNEY EXAM: Yes no CVA tenderness Back/Pelvis: COMMON NORMALS: no CVA tenderness Extremity: COMMON NORMALS: normal to inspection, full ROM, capillary refill normal, no joint enlargement, no clubbing, cyanosis or edema, no calf tenderness and no pedal edema Neuro: COMMON NORMALS: patient oriented x3 SENSORIUM/ORIENTATION: Yes alert MENINGEAL SIGNS: Yes no meningeal signs Skin: COMMON NORMALS: no rashes or lesions noted, turgor normal and no jaundice GENERAL SKIN EXAM: no rashes or lesions noted and turgor normal Course Vital Signs: Vital signs: Vital Signs Temperature 98.4 F 07/13/24 22:08 Pulse Rate 60 07/13/24 23:55 Respiratory Rate 22 H 07/13/24 23:55 Blood Pressure 100/62 07/13/24 23:55 Pulse Oximetry 91 07/13/24 23:55 Oxygen Delivery Me thod Room Air 07/13/24 22:08 MDM - Abdominal Pain Medical Decision Making 1. Atrial Fibrillation with successful conversion: - Newly diagnosed atrial fibrillation, currently converted to normal rhythm after beta-bailey and magnesium - Will review final EKG to confirm maintained conversion - Requires stroke risk assessment and appropriate anticoagulation (likely warfarin vs. direct oral anticoagulant) - Abnormal CXR. Needs outpatient CT scan. 2. Preventive Care: - Urgent need for establishment of primary care for ongoing management - Will provide list of local family medicine physicians - Smoking cessation strongly advised - Alcohol use should be addressed due to potential trigger for atrial fibrillation 3. Disposition: - Likely for discharge pending final EKG and lab review - Clear instructions for follow-up care and when to return to ED will be provided [id number] low. Needs further follow up and lung cancer screening. Return and follow up precautions. Lab Data 07/13/24 22:34 07/13/24 22:34 Labs/Radiology: Radiology Impressions Chest X-Ray 07/13/24 22:15 IMPRESSION: Mild streaky bibasilar opacities likely represent atelectasis and/or scarring, infiltrate not entirely excluded. Laboratory Results WBC 13.00 10^3/uL (3.29-11.43) H 07/13/24 22:34 RBC 5.77 10^6/uL (3.85-5.65) H 07/13/24 22:34 Hgb 18.40 g/dL (11.27-16.99) H 07/13/24 22:34 Hct 55.2 % (37-53) H 07/13/24 22:34 MCV 95.7 fl (82-101) 07/13/24 22:34 MCH 31.9 pg (27-33) 07/13/24 22:34 MCHC 33.3 g/dL (30-55) 07/13/24 22:34 RDW 14.8 % (12.1-15.1) 07/13/24 22:34 Plt Count 262 10^3/cmm (157-399) 07/13/24 22:34 MPV 9.6 fL (7.4-10.4) 07/13/24 22:34 Neut % (Auto) 63.1 % 07/13/24 22:34 Lymph % (Auto) 25.1 % 07/13/24 22:34 Clinch % (Auto) 7.0 % 07/13/24:34 Eos % (Auto) 3.2 % 07/13/24 22:34 Baso % (Auto) 1.1 % 07/13/24 22:34 Neut # (Auto) 8.21 10^3/uL (1.8-7.7) H 07/13/24 22:34 Lymph # (Auto) 3.3 10^3/uL (0.8-4.8) 07/13/24 22:34 Clinch # (Auto) 0.9 10^3/uL (0.2-0.9) 07/13/24:34 Eos # (Auto) 0.4 10^3/uL (0.0-0.8) 07/13/24:34 Baso # (Auto) 0.1 10^3/uL (0.0-0.1) 07/13/24:34 Nucleated RBC % (auto) 0 % 07/13/24: Nucleated RBCs # 0.0 /100WBC 07/13/24 22:34 Sodium 140 mmol/L (136-145) 07/13/24:34 Potassium 3.7 mmol/L (3.5-5.1) 07/13/24:34 Chloride 103 mmol/L (98-107) 07/13/24:34 Carbon Dioxide 25 mmol/L (22-29) 07/13/24 22:34 Anion Gap 15.7 (5-19) 07/13/24 22:34 BUN 12 mg/dL (8-23) 07/13/24:34 Creatinine 0.8 mg/dL (0.7-1.2) 07/13/24:34 GFR Calculation Not Reportable 07/13/24:34 Glucose 143 mg/dL (65-115) H 07/13/24 22:34 Calculated Osmolality 292 mOsm/kg (285-295) 07/13/24:34 Calcium 9.7 mg/dL (8.5-10.5) 07/13/24:34 Magnesium 1.9 mg/dL (1.7-2.3) 07/13/24 22:34 TSH 2.49 uIU/mL (0.27-4.20) 07/13/24 22:34 XR interpretation done by ED provider, pending radiology final review Discharge Plan Discharge Patient Disposition: Home Clinical Impression: Nicotine dependence, cigarettes, with other nicotine-induced disorders, Atrial fibrillation, new onset, Abnormal chest x-ray Condition: Stable Prescriptions: New metoprolol tartrate 25 mg tablet 12.5 mg PO DAILY Qty: 30 0RF No Action Gummies Children Multivitamin Tablet,Chewable 1 tab PO DAILY hydrocodone-acetaminophen 5-325 mg tablet 1 tab PO Q8H PRN (Reason: pain) Qty: 10 0RF metoclopramide HCl 10 mg tablet 10 mg PO Q6H PRN (Reason: nausea and vomiting) Qty: 30 0RF Discharge Orders: Discharge ED (Routine); Ordered 07/14/24 Ordered By: Nikhil Staton Referrals: Beryl Ness MD [Primary Care Provider] - Discharge Diet: Low Salt and Low Cholesterol Discharge Activity: Resume usual activity Patient Instructions: Opioid Safety, Pain Management Activity Restrictions/Additional Instructions: 1. Take Rx as directed plus 81mg aspirin daily. 2. Stop drinking and smoking. Follow up with PCP this week. 3. Return to ED for new or worsening symptoms. 4. Give handout of area PCPs taking new patients. Print Language: Tongan Coding Level of Care Code ED Foreign Food Cook Specialty for Chey Howe
--- NOTE | 2024-07-13 22:15 | XRR_ITS ---
PROCEDURE INFORMATION: Exam: XR Chest Exam date and time: 07/13/2024 10:24 PM Age: 73 years old Clinical indication: Pain; Chest pressure; New onset afib TECHNIQUE: Imaging protocol: Radiologic exam of the chest. Views: 1 view. COMPARISON: CR XR chest 1V portable [id number] 09/15/2022 8:47 PM FINDINGS: Lungs: Mild streaky bibasilar opacities. Pleural spaces: Unremarkable. No pleural effusion. No pneumothorax. Heart/Mediastinum: Unremarkable. No cardiomegaly. Bones/joints: Degenerative changes along the spine. XR/XR chest 1V portable [id number] IMPRESSION: Mild streaky bibasilar opacities likely represent atelectasis and/or scarring, infiltrate not entirely excluded.
--- NOTE | 2024-07-13 22:15 | ECG_ITS ---
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: : 1950 Requested By: Nikhil Staton Order Number: [id number] Reading MD: EHSAN DAVIS Measurements Intervals [place] Rate: 146 P: 0 CT: 0 QRS: -4 QRSD: 83 T: 77 QT: 280 QTc: 437 Interpretive Statements ATRIAL FIBRILLATION WITH RAPID VENTRICULAR RESPONSE POSSIBLE RIGHT VENTRICULAR CONDUCTION DELAY [RSR (QR) IN V1/V2] MODERATE ST DEPRESSION [0.05+ mV ST DEPRESSION] Compared to ECG 09/16/2022 00:05:12 ST (T wave) deviation now present Sinus bradycardia no longer present Incomplete right bundle-branch block no longer present T-wave abnormality no longer present Electronically Signed On 07-14-2024 18:08:07 CDT by EHSAN DAVIS [id number] [id number]
[2024-07-13] MEDS: metoprolol succinate ER (24 HR) 50 mg Tablet PO (22:31)
[2024-07-13] MEDS: magnesium sulfate premix 4 GM/100 ML PREMIX IV (22:34)
[2024-07-13 22:54] LABS: Basophils # 0.1 10^3/uL (0.0-0.1); Basophils % 1.1 %; Eosinophils # 0.4 10^3/uL (0.0-0.8); Eosinophils % 3.2 %; Hematocrit 55.2 % (37-53); Lymphocytes # 3.3 10^3/uL (0.8-4.8); Lymphocytes % 25.1 %; Mean Corpuscular HGB Conc 33.3 g/dL (30-55); Mean Corpuscular Hemoglobin 31.9 pg (27-33); Mean Corpuscular Volume 95.7 fl (82-101); Mean Platelet Volume 9.6 fL (7.4-10.4); Monocytes # 0.9 10^3/uL (0.2-0.9); Neutrophils # 8.21 10^3/uL (1.8-7.7); Neutrophils % 63.1 %; Nucleated Red Blood Cells % 0 %; Platelet Count 262 10^3/cmm (157-399); Red Blood Count 5.77 10^6/uL (3.85-5.65); Red Cell Distribution Width 14.8 % (12.1-15.1)
[2024-07-13 23:26] LABS: Anion Gap 15.7 (5-19); Blood Urea Nitrogen 12 mg/dL (8-23); Calcium 9.7 mg/dL (8.5-10.5); Carbon Dioxide 25 mmol/L (22-29); Chloride 103 mmol/L (98-107); Creatinine Clr Calc Pharmacy 86.1575; Glucose 143 mg/dL (65-115); Magnesium 1.9 mg/dL (1.7-2.3); Osmolality Calculated 292 mOsm/kg (285-295); Potassium 3.7 mmol/L (3.5-5.1); Sodium 140 mmol/L (136-145); Thyroid Stimulating Hormone 2.49 uIU/mL (0.27-4.20)
--- NOTE | 2024-07-14 00:08 | ECG_ITS ---
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
[2024-07-14 00:19] VITALS: BP 131/66; PULSE 60; RESP 18; O2SAT 94
== END 2024-07-14 00:20 | disposition home or self-care (01) ==
PROVIDERS: Emergency Provider Family Medicine; PCP Family Medicine
DX: I48.91 Unspecified atrial fibrillation (principal); F17.210 Nicotine dependence, cigarettes, uncomplicated; R91.8 Other nonspecific abnormal finding of lung field
CPT/HCPCS: 36415; 71045; 80048; 83735; 84443; 85025; 93005; 96365; 96366; 99285; J3475; J9999

== ENCOUNTER 2024-10-26 10:28 | Emergency (ER) | payer MEDICARE, SELFPAY ==
[2024-10-26 10:31] VITALS: BP 182/74; PULSE 65; TEMP 36.6; O2SAT 100; BMI 22.2
--- OUTSIDE RECORDS SUMMARY | 2024-10-26 10:35 | XMS_ITS | Encounter Summary ---
Author Organization [facility] Address [address] [place] [address] Care Team Providers Care Chip Crusher Operator Name Role Phone Unavailable Primary Care Provider Unavailabl e Encounter Details Date Type Department Care Team (Latest Contact Info) Description 08/04/1999 Outpatient Historical [facility] [address] [place] [id number] Channing Humphries MD NO ADDRESS ON FILE Chronic rhinitis (Primary Dx) Social History Tobacco Use Types Packs/Day Years Used Date Smoking Tobacco: Never Assessed Sex and Gender Information Value Date Recorded Sex Assigned at Not on file 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
--- OUTSIDE RECORDS SUMMARY | 2024-10-26 10:35 | XMS_ITS | Encounter Summary ---
[facility] Organization [facility] Address [address] [place]: Epic [place] [address] Care Team Providers Care Steam Shovel Oiler Name Role Phone Unavailable Primary Care Provider Unavailabl e Encounter Details Date Type Department Care Team (Late st Contact Info) Description 03/19/2000 Outpatient Historical Vel Lozada MD 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
--- OUTSIDE RECORDS SUMMARY | 2024-10-26 10:35 | XMS_ITS | Clinical Summary ---
Author Organization [facility] Address [address] 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 Gender Identity Not on file Sexual Orientation Not on file Plan of Treatment Health Maintenance Due Date Last Done Comments DTAP/TDAP/TD VACCINES (1 - Tdap) 07/18/1971 COLORECTAL SCREENING 1997 FIT-DNA Q 3 years 1997 Flex Sig/CT Colonography Q 5 years 1997 PNEUMOCOCCAL VACCINE 50+ YEARS (1 of 1 - PCV) 07/18/19 03 ZOSTER VACCINE (1 of 2) 2002 Colorectal Cancer Screening 03/13/2020 FIT/FOBT Q 1 year 03/13/2020 03/13/2019 INFLUENZA VACCINE (#1) 2023 RSV VACCINE (60+ or ) (1 - 1-dose 75+ series) 07/18/2027 Procedures Procedure Name Priority Date/Time Associated Diagnosis Comments OCCULT BLOOD IMMUNOASSAY, COLORECTAL SCREEN Routine 03/13/2019 from Last 3 Months or Most Recently Relevant to Health Maintenance Results * OCCULT BLOOD IMMUNOASSAY, COLORECTAL SCREEN (03/13/2019) Stool STOOL SPECIMEN / Unknown us Abstract Spg Provider BODY FLUIDS AND STOOLS Fin al Result from Last 3 Months or Most Recently Relevant to Health Maintenance
--- NOTE | 2024-10-26 10:39 | ECG_ITS ---
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 Measurements Intervals [place] Rate: 61 P: -48 [place]: 144 QRS: -1 QRSD: 89 T: 75 QT: 404 QTc: 409 Interpretive Statements SINUS RHYTHM POSSIBLE RIGHT VENTRICULAR CONDUCTION DELAY [RSR (QR) IN V1/V2] Compared to ECG 07/14/2024 00:08:11 Sinus bradycardia no longer present Electronically Signed On 10-30-2024 09:12:28 CDT by Sea Belle M.D. [id number] [id number]
--- NOTE | 2024-10-26 10:50 | CTR_ITS ---
PROCEDURE INFORMATION: Exam: CT Abdomen And Pelvis With Contrast Exam date and time: 10/26/2024 12:11 PM Age: 74 years old Clinical indication: Abdominal pain; Prior surgery; Surgery date: 1-6 months; Surgery type: Pancreas; Additional info: Abd pain TECHNIQUE: Imaging protocol: Computed tomography of the abdomen and pelvis with contrast. Radiation optimization: All CT scans at this facility use at least one of these dose optimization techniques: automated exposure control; mA and/or kV adjustment per patient size (includes targeted exams where dose is matched to clinical indication); or iterative reconstruction. Contrast material: OMNI 350; Contrast volume: 100 ml; Contrast route: INTRAVENOUS (IV); COMPARISON: CT abdomen pelvis w con* [id number] 09/15/2022 10:44 PM RADIATION DOSE METRICS: Total DLP (mGy-cm): 474.12 FINDINGS: Liver: Normal. No mass. Gallbladder and biliary ducts: Normal. No calcified stones. No ductal dilation. Pancreas: There are multiple calcifications in the pancreas particularly in the head of the pancreas. Dilatation of the pancreatic duct is seen measuring up to 7 mm in diameter in the neck of the pancreas. Significant increased ductal dilatation since prior CT in the pancreatic calcifications are new. No discrete pancreatic mass is identified. There is increased density of the fat around the head of the pancreas and between 8 in the duodenal which could represent groove pancreatitis. The proximal duodenal exhibits slight wall prominence and possible wall thickening. Spleen: Normal. No splenomegaly. Adrenal glands: Normal. No mass. Kidneys and ureters: 3 mm stone in the lower pole of the left kidney. Exophytic left renal cyst measures 7.2 x 6.1 cm. No hydronephrosis. Stomach and bowel: Unremarkable. No obstruction. No mucosal thickening. Appendix: No evidence of appendicitis. Intraperitoneal space: Unremarkable. No free air. No significant fluid collection. Vasculature: Unremarkable. No abdominal aortic aneurysm. Lymph nodes: Unremarkable. No enlarged lymph nodes. Urinary bladder: Unremarkable as visualized. Reproductive: Unremarkable as visualized. Bones/joints: Unremarkable. No acute fracture. Soft tissues: Unremarkable. 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 Differential diagnosis includes pancreatic ductal adenocarcinoma. Close clinical correlation recommended and consider further evaluation with MRI of the pancreas. COMMENTS: Consistent with the [place] [employer]'s Incidental Findings Committee white paper (J Am Rita Radiol 2018): Any incidental renal lesion less than 1 cm or classified as too small to characterize, or any incidental cystic renal lesion characterized as simple-appearing, is likely benign. No follow-up imaging is recommended for these lesions per consensus recommendations based on imaging criteria.
--- NOTE | 2024-10-26 10:51 | W.ED.ABDPA2 ---
HPI - Abdominal Pain General: Chief Complaint: Abdominal Pain Stated Complaint: upper abd, chest, and back pain, bloating Time Seen by Provider: 10/26/24 10:37 Source: patient Mode of arrival: ambulatory Limitations: no limitations History of Present Illness: 74-year-old male who states he had a history of pancreatitis in the past. He states he had eaten a large meal last night and he woke up this morning at 5 AM he is having epigastric abdominal pain. He states the pains have been sharp in nature has had some nausea denies any vomitings. He denies any fevers denies any worse improving factors rates his pain a 7 out of 10 currently. Associated Symptoms: Denies chills, diarrhea, fever(s) and vomiting Related Data Home Medications ?Medication ?Instructions ?Recorded ?Confirmed pediatric multivitamin no.30 1 tab PO DAILY 01/15/20 09/11/22 (Gummies Children Multivitamin chewable tablet) Previous Rx's ?Medication ?Instructions ?Recorded hydrocodone 5 mg-acetaminophen 325 1 tab PO Q8H PRN pain #10 tabs 08/07/21 mg tablet metoclopramide HCl 10 mg tablet 10 mg PO Q6H PRN nausea and 09/15/22 vomiting #30 tabs metoprolol tartrate 25 mg tablet 12.5 mg (1/2 x 25 mg) PO DAILY #30 07/14/24 tabs ondansetron 4 mg disintegrating 4 mg PO Q6H PRN nausea and 10/26/24 tablet vomiting #14 tabs oxycodone-acetaminophen 7.5 mg-325 1 tab PO Q8H PRN pain #14 tabs 10/26/24 mg tablet (Percocet) Allergies Allergy/AdvReac Type Severity Reaction Status Date / Time Penicillins Allergy becomes Verified 10/26/24 10:36 overheated and sweating Review of Systems Const: Denies: fever(s), chills, body aches or change in appetite ENMT: Denies: throat pain or dental pain Card: Denies: chest pain Resp: Denies: dyspnea GI: Reports: abdominal pain; Denies: vomiting or diarrhea Musc: Denies: neck pain or back pain Skin/Breast: Denies: rash Neuro: Denies: headache(s) PFSH ED PFSH: Medical History Pancreatitis Smoker Alcohol abuse Bipolar 1 disorder Insomnia Surgical History History of cataract surgery No pertinent past surgical history Family History Other Cancer Psychiatric illness Denies family history of Diabetes Clotting disorder Dementia Chronic kidney disease (CKD) Social History Smoking and tobacco/nicotine status: current every day tobacco/nicotine user cigarettes Packs smoked per day: 3 Years cigarettes smoked: 45 Alcohol intake: current Alcohol intake frequency: 3 or more drinks per day Alcohol type: hard liquor Substance/Drug Use: never Household members: spouse Housing: House Marital status: Current occupation: On disability because of lower back pain and scoliosis Physical Exam Const: COMMON NORMALS: no acute distress, patient oriented x3 and healthy appearing HENMT: COMMON NORMALS: normocephalic and atraumatic HEAD & SCALP: normocephalic and atraumatic Neck/C-Spine: COMMON NORMALS: full ROM and supple Chest: COMMONS NORMALS: normal inspection of the chest Resp: COMMON NORMALS: normal respiratory effort, No retractions, No use of accessory muscles and clear to auscultation bilaterally AUSCULTATION: clear to auscultation bilaterally Cardio: COMMON NORMALS: regular rate, regular rhythm and No murmurs present (Cardio) RATE: regular rate RHYTHM: regular rhythm GI: COMMON NORMALS: Normal to inspection, nondistended, normoactive bowel sounds present, Soft to palpation and no masses PALPATION: Yes Soft to palpation OTHER: epigastric tenderness Extremity: COMMON NORMALS: normal to inspection and full ROM Neuro: COMMON NORMALS: patient oriented x3, moves all extremities and no focal motor deficits Psych: COMMON NORMALS: mental status grossly normal, Normal thought process present and cooperative THOUGHT PROCESS: Normal thought process present Skin: COMMON NORMALS: no rashes or lesions noted and no wounds GENERAL SKIN EXAM: no rashes or lesions noted Course Vital Signs: Vital signs: Vital Signs Temperature 97.8 F 10/26/24 10:31 Pulse Rate 57 L 10/26/24 13:21 Respiratory Rate 23 H 10/26/24 13:21 Blood Pressure 148/63 10/26/24 13:21 Pulse Oximetry 97 10/26/24 13:21 Oxygen Delivery Me thod Room Air 10/26/24 13:21 MDM - Abdominal Pain Medical Decision Making Patient presents here with abdominal pain lipase is slightly elevated I did call patient's GI at [facility] over his labs and CT scan they are going to set him appointment up next week. His pain here is resolved exam at discharge is benign he is return if worsening. Medical Records I reviewed the patient's medical records. Lab Data I reviewed the patient's lab results. 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 Differential diagnosis includes pancreatic ductal adenocarcinoma. Close clinical correlation recommended and consider further evaluation with MRI of the pancreas. COMMENTS: Consistent with the [employer]'s Incidental Findings Committee white paper (J Am Rita Radiol 2018): Any incidental renal lesion less than 1 cm or classified as too small to characterize, or any incidental cystic renal lesion characterized as simple-appearing, is likely benign. No follow-up imaging is recommended for these lesions per consensus recommendations based on imaging criteria. Laboratory Results WBC 12.28 10^3/uL (3.29-11.43) H 10/26/24 11:15 RBC 5.01 10^6/uL (3.85-5.65) 10/26/24 11:15 Hgb 16.00 g/dL (11.27-16.99) 10/26/24 11:15 Hct 47.6 % (37-53) 10/26/24 11:15 MCV 95.0 fl (82-101) 10/26/24 11:15 MCH 31.9 pg (27-33) 10/26/24 11:15 MCHC 33.6 g/dL (30-55) 10/26/24 11:15 RDW 14.7 % (12.1-15.1) 10/26/24 11:15 Plt Count 290 10^3/cmm (157-399) 10/26/24 11:15 MPV 9.7 fL (7.4-10.4) 10/26/24 11:15 Neut % (Auto) 73.3 % 10/26/24 11:15 Lymph % (Auto) 17.5 % 10/26/24 11:15 [place] % (Auto) 7.1 % 10/26/24 11:15 Eos % (Auto) 1.0 % 10/26/24 11:15 Baso % (Auto) 0.7 % 10/26/24 11:15 Neut # (Auto) 9.01 10^3/uL (1.8-7.7) H 10/26/24 11:15 Lymph # (Auto) 2.2 10^3/uL (0.8-4.8) 10/26/24 11:15 [place] # (Auto) 0.9 10^3/uL (0.2-0.9) 10/26/24 11:15 Eos # (Auto) 0.1 10^3/uL (0.0-0.8) 10/26/24 11:15 Baso # (Auto) 0.1 10^3/uL (0.0-0.1) 10/26/24 11:15 Nucleated RBC % (auto) 0 % 10/26/24 11:15 Nucleated RBCs # 0.0 /100WBC 10/26/24 11:15 Sodium 135 mmol/L (136-145) L 10/26/24 11:15 Potassium 4.0 mmol/L (3.5-5.1) 10/26/24 11:15 Chloride 100 mmol/L (98-107) 10/26/24 11:15 Carbon Dioxide 22 mmol/L (22-29) 10/26/24 11:15 Anion Gap 17.0 (5-19) 10/26/24 11:15 BUN 16 mg/dL (8-23) 10/26/24 11:15 Creatinine 0.7 mg/dL (0.7-1.2) 10/26/24 11:15 GFR Calculation Not Reportable 10/26/24 11:15 Glucose 101 mg/dL (65-115) 10/26/24 11:15 Calculated Osmolality 281 mOsm/kg (285-295) L 10/26/24 11:15 Calcium 9.2 mg/dL (8.5-10.5) 10/26/24 11:15 Total Bilirubin 0.4 mg/dL (0.15-1.2) 10/26/24 11:15 AST 14 U/L (0-40) 10/26/24 11:15 ALT 12 U/L (0-41) 10/26/24 11:15 Alkaline Phosphatase 87 U/L (40-130) 10/26/24 11:15 Troponin T Baseline 9 ng/L (0-15) 10/26/24 11:15 Troponin T 120 Minute 7.34 ng/L (0-15) 10/26/24 13:23 Delta Troponin T -1.66 ABS# (0-10) L 10/26/24 13:23 Total Protein 7.1 g/dL (6.6-8.7) 10/26/24 11:15 Albumin 3.9 g/dL (3.5-5.2) 10/26/24 11:15 Globulin 3.2 g/dL (1.3-4.6) 10/26/24 11:15 Lipase 520 U/L (13-60) H 10/26/24 11:15 Ethyl Alcohol < 10 mg/dL (0-10) 10/26/24 11:15 All radiology interpretation(s) finalized by discharge EKG Data EKG 1: I personally reviewed and interpreted this EKG as follows: EKG interpretation date: 10/26/24 EKG interpretation time: 10:39 Interpretation: nsr hr [address] elevation qrs 89 qtc 408 Discharge Plan Discharge Patient Disposition: Home Clinical Impression: Abdominal pain Pancreatitis Qualifiers: Chronicity: chronic Pancreatitis type: unspecified pancreatitis type Qualified Code(s): K86.1 - Other chronic pancreatitis Condition: Stable Prescriptions: New oxycodone-acetaminophen [Percocet] 7.5-325 mg tablet 1 tab PO Q8H PRN (Reason: pain) Qty: 14 0RF ondansetron 4 mg tablet,disintegrating 4 mg PO Q6H PRN (Reason: nausea and vomiting) Qty: 14 0RF No Action Gummies Children Multivitamin Tablet,Chewable 1 tab PO DAILY hydrocodone-acetaminophen 5-325 mg tablet 1 tab PO Q8H PRN (Reason: pain) Qty: 10 0RF metoclopramide HCl 10 mg tablet 10 mg PO Q6H PRN (Reason: nausea and vomiting) Qty: 30 0RF metoprolol tartrate 25 mg tablet 12.5 mg PO DAILY Qty: 30 0RF Discharge Orders: Discharge ED (Routine); Ordered 10/26/24 Ordered By: Yobani Urrutia Referrals: Denis Olmedo DO [Primary Care Provider, Family Practice] Discharge Diet: Clear Liquid Discharge Activity: Resume usual activity Patient Instructions: Pancreatitis (ED), Abdominal Pain (ED), Opioid Safety Print Language: Setswana Coding Level of Care Code ED Ct Scan Technologist for Chey Howe
[2024-10-26] MEDS: sodium chloride 0.9% 1,000 ML 999 ML IV (11:10)
[2024-10-26] MEDS: morphine 4 mg/mL SDV 1 mL IVP (11:13)
[2024-10-26] MEDS: ondansetron 2 mg/ML SDV 2 mL 4 MG IVP (11:13)
[2024-10-26] MEDS: lidocaine 2% viscous 15 ML, aluminum-mag hydrox-simethicon 30 ML, sucralfate oral liq 1 GM PO (11:15)
[2024-10-26 11:19] VITALS: BP 170/70; PULSE 58; RESP 16; O2SAT 96
[2024-10-26 11:30] VITALS: BP 170/70; PULSE 59; RESP 16; O2SAT 96
[2024-10-26 11:36] LABS: Basophils # 0.1 10^3/uL (0.0-0.1); Basophils % 0.7 %; Eosinophils # 0.1 10^3/uL (0.0-0.8); Hematocrit 47.6 % (37-53); Lymphocytes # 2.2 10^3/uL (0.8-4.8); Lymphocytes % 17.5 %; Mean Corpuscular HGB Conc 33.6 g/dL (30-55); Mean Corpuscular Hemoglobin 31.9 pg (27-33); Mean Platelet Volume 9.7 fL (7.4-10.4); Monocytes # 0.9 10^3/uL (0.2-0.9); Monocytes % 7.1 %; Neutrophils # 9.01 10^3/uL (1.8-7.7); Neutrophils % 73.3 %; Nucleated Red Blood Cells % 0 %; Platelet Count 290 10^3/cmm (157-399); Red Blood Count 5.01 10^6/uL (3.85-5.65); Red Cell Distribution Width 14.7 % (12.1-15.1); White Blood Count 12.28 10^3/uL (3.29-11.43)
[2024-10-26 11:45] LABS: Troponin(5th) Baseline 9 ng/L (0-15)
[2024-10-26 11:53] LABS: Alanine Aminotransferase 12 U/L (0-41); Albumin Level 3.9 g/dL (3.5-5.2); Alkaline Phosphatase 87 U/L (40-130); Aspartate Amino Transferase 14 U/L (0-40); Blood Urea Nitrogen 16 mg/dL (8-23); Calcium 9.2 mg/dL (8.5-10.5); Carbon Dioxide 22 mmol/L (22-29); Chloride 100 mmol/L (98-107); Creatinine Clr Calc Pharmacy 84.9089; Globulin 3.2 g/dL (1.3-4.6); Glucose 101 mg/dL (65-115); Osmolality Calculated 281 mOsm/kg (285-295); Sodium 135 mmol/L (136-145); Total Bilirubin 0.4 mg/dL (0.15-1.2); Total Protein 7.1 g/dL (6.6-8.7)
[2024-10-26 11:54] LABS: Alcohol Level < 10 mg/dL (0-10)
[2024-10-26 12:02] LABS: Lipase 520 U/L (13-60)
[2024-10-26] MEDS: iohexol 350 mg/mL 500 mL Btl (per mL) IV (12:06)
[2024-10-26 12:35] VITALS: BP 155/81; PULSE 56; RESP 16; O2SAT 94
[2024-10-26 13:21] VITALS: BP 148/63; PULSE 57; RESP 23; O2SAT 97
[2024-10-26 13:48] LABS: Troponin 5 2HR 7.34 ng/L (0-15)
[2024-10-26 13:49] LABS: Troponin 5 2HR Delta -1.66 ABS# (0-10)
[2024-10-26 14:20] VITALS: BP 171/67; PULSE 106; O2SAT 93
== END 2024-10-26 14:21 | disposition home or self-care (01) ==
PROVIDERS: Emergency Provider Emergency Medicine; PCP Electrodiagnostic Medicine
DX: R10.9 Unspecified abdominal pain (principal); K86.1 Other chronic pancreatitis; F17.210 Nicotine dependence, cigarettes, uncomplicated
CPT/HCPCS: 36415; 74177; 80053; 80307; 83690; 84484; 85025; 93005; 96374; 96375; 99285; J2270; J2405; J7030; J9999

== ENCOUNTER 2024-11-06 14:33 | Outpatient (CLI) | payer MEDICARE, SELFPAY ==
--- NOTE | 2024-11-06 14:44 | CT_ITS ---
WS: [id number] LDCT LUNG CANCER SCREENING HISTORY: HX OF TOBACCO USE TECHNIQUE: Axial imaging performed from the apices to 1 cm below the costophrenic angles. Coronal and sagittal reformats are submitted with axial MIP series. All CT scans at [facility] use at least one of these dose optimization techniques: automated exposure control; mA and/or kV adjustment per patient size (includes targeted exams where dose is matched to clinical indication); or iterative reconstruction. DLP: 58.81 mGy.cm DIvol: Mean CTDIvol: 1.10 (mGy) COMPARISON: None available. Diagnostic quality: Satisfactory. Lungs: Mild centrilobular emphysema. Mild pleural tagging and scarring at the apices. Micronodules upper lobes, less than 3 mm. No mass or pneumonia. No endobronchial lesions. Heart: Normal size heart with no pericardial effusion.. Other findings: Mild atherosclerosis aorta. No aneurysm. Normal size pulmonary artery. No adenopathy. No adrenal mass. 6.2 cm cyst upper pole LEFT kidney was also described on 10/26/2024. CT/CT lung screening [id number] IMPRESSION: LUNG-RADS: 2-Benign Appearance or Behavior FOLLOW UP: 12 Month: Continue annual screening with LDCT OTHER FINDINGS (S MODIFIER): None.
== END 2024-11-06 14:34 | disposition home or self-care (01) ==
LOC: RAD 14:36
PROVIDERS: PCP Electrodiagnostic Medicine; Visit Provider Nurse Practitioner Adult Health
DX: Z12.2 Encounter for screening for malignant neoplasm of respiratory organs (principal); Z87.891 Personal history of nicotine dependence; J43.2 Centrilobular emphysema; J98.4 Other disorders of lung; R91.8 Other nonspecific abnormal finding of lung field
CPT/HCPCS: 71271

== ENCOUNTER 2024-12-28 16:01 | Emergency (ER) | payer MEDICARE, SELFPAY ==
[2024-12-28] VITALS (7 sets, daily range): BP systolic 113–160; BP diastolic 49–81; PULSE 55–68; RESP 16–18; TEMP 37.1; O2SAT 92–97; BMI 23.3
--- OUTSIDE RECORDS SUMMARY | 2024-12-28 16:05 | XMS_ITS | Clinical Summary ---
Author Organization [facility] Address [address] 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
--- OUTSIDE RECORDS SUMMARY | 2024-12-28 16:05 | XMS_ITS | Encounter Summary ---
Author Organization [facility] Address [address] [place] [address] Care Team Providers Care Staff Reporter Name Role Phone Unavailable Primary Care Provider Unavailabl e Encounter Details Date Type Department Care Team (Latest Contact Info) Description 08/04/1999 Outpatient Historical [facility]- [address] [place] [id number] Channing Humphries MD NO ADDRESS ON FILE Chronic rhinitis (Primary Dx) Social History Tobacco Use Types Packs/Day Years Used Date Smoking Tobacco: Never Assessed Sex and Gender Information Value Date Recorded Sex Assigned at Not on file 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
--- OUTSIDE RECORDS SUMMARY | 2024-12-28 16:05 | XMS_ITS | Encounter Summary ---
Author Organization [facility] Address [address] We[place]: Epic Prelude [place] [address] Care Team Providers Care Senior Tax Specialist Name Role Phone Unavailable Primary Care Provider Unavailabl e Encounter Details Date Type Department Care Team (Late st Contact Info) Description 03/19/2000 Outpatient Historical Vel Lozada MD 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
--- NOTE | 2024-12-28 16:44 | XRR_ITS ---
PROCEDURE INFORMATION: Exam: XR Chest Exam date and time: 12/28/2024 5:03 PM Age: 74 years old Clinical indication: Pain; Other: Epigastric; Additional info: Epigastric pain TECHNIQUE: Imaging protocol: Radiologic exam of the chest. Views: 1 view. COMPARISON: CT lung screening [id number] 11/06/2024 2:49 PM FINDINGS: Lungs: Linear atelectasis or scarring in the left lower lobe. Pleural spaces: No pleural effusion. No pneumothorax. Heart/Mediastinum: The cardiac silhouette and mediastinal contours are unremarkable. Vasculature: Stable vascular calcifications in the aorta. Bones/joints: Unremarkable for age. XR/XR chest 1V portable [id number] IMPRESSION: 1. Linear atelectasis or scarring in the left lower lobe. 2. Incidental/nonacute findings are listed in the report.
--- NOTE | 2024-12-28 16:44 | CTR_ITS ---
PROCEDURE INFORMATION: Exam: CT Abdomen And Pelvis With Contrast Exam date and time: 12/28/2024 5:41 PM Age: 74 years old Clinical indication: Abdominal pain; C/O epigastric pain. History of recurrent pancreatitis. ; Additional info: Epigastric pain/hx of pancreatitis TECHNIQUE: Imaging protocol: Computed tomography of the abdomen and pelvis with contrast. Total images: 3 Radiation optimization: All CT scans at this facility use at least one of these dose optimization techniques: automated exposure control; mA and/or kV adjustment per patient size (includes targeted exams where dose is matched to clinical indication); or iterative reconstruction. Contrast material: OMNI 350; Contrast volume: 100 ml; Contrast route: INTRAVENOUS (IV); COMPARISON: 1. CT abdomen pelvis w con* [id number] 10/26/2024 12:[address] lung screening [id number] 11/06/2024 2:49 PM RADIATION DOSE METRICS: Total DLP (mGy-cm): 431.57 FINDINGS: Lungs: Bilateral lung bases demonstrate linear fibrotic scarring. Pleural spaces: No significant pleural effusion. No pneumothorax. Diaphragm: Small hiatal hernia present. Liver: Liver of normal-size and capsule contour, demonstrating no focal pathologic hepatic lesions or intrahepatic biliary dilatation. Gallbladder and biliary ducts: Gallbladder is distended with a thin wall, no appreciable gallstones or pericholecystic inflammatory manifestations. Common bile duct (CBD) is dilated measuring 11 mm diameter. Pancreas: Pancreatic head coarse calcifications, consistent with chronic pancreatitis. Dilated beaded appearance of the entire course of the pancreatic duct. No discrete pancreatic mass. Mild peripancreatic fat stranding posterior to the pancreatic head and uncinate process in the setting of chronic manifestations of calcific pancreatitis. Spleen: Spleen is unremarkable. Adrenal glands: Adrenal glands are normal. Kidneys and ureters: Bilateral nonobstructive kidney stones measure as large as 5 mm. Likely benign left renal cyst(s) are present, requiring no further evaluation, measuring as large as 7.8 cm in maximum AP diameter, demonstrating a solitary curvilinear thin faintly calcified cyst septation. Stomach and bowel: Moderate volume of stool throughout the course of the nondistended colon. No evidence of pathologic bowel distension or bowel wall thickening. Appendix: Normal appendix. Intraperitoneal space: No significant peritoneal free fluid. No free peritoneal air. Vasculature: No major vessel hemodynamically significant stenosis, occlusion, or aneurysmal dilatation. Vascular structures demonstrate atherosclerosis. Lymph nodes: No lymphadenopathy. Urinary bladder: No focal wall thickening of the urinary bladder. Reproductive: Prostatomegaly. Bones/joints: Moderate generalized degenerative changes of the vertebral column characterized by multilevel osteophyte formation, degenerative disc height loss and facet arthrosis commensurate with patient's age. No spondylolysis or spondylolisthesis. L5-S1 disc height loss and vacuum disc phenomenon. Mild degenerative changes of both hips. Old healed right 10th and 11th posterior rib fracture deformities. Soft tissues: Ventral abdominal wall midline umbilical-periumbilical fat-containing hernia without inflammatory manifestations. Small volume inguinal canal preperitoneal fat without bowel or peritoneal sac herniation. Soft tissues are normal as visualized, demonstrating no masses or induration. Diastasis of the anterior abdominal wall. Other findings: Incidental pelvic phleboliths noted. . CT/CT abdomen pelvis w con* [id number] IMPRESSION: 1. Mild peripancreatic fat stranding posterior to the pancreatic head and uncinate process in the setting of chronic manifestations of calcific pancreatitis. Consider uncomplicated acute interstitial edematous pancreatitis. 2. Gallbladder distension consistent with gallbladder hydrops without CT manifestations specific for acute cholecystitis. 3. Common bile duct (CBD) is dilated measuring 11 mm diameter. If there is clinical or laboratory evidence of a biliary obstructive process, ERCP or MRCP could be considered for further anatomic evaluation. 4. Moderate burden of colonic stool without dilatation. 5. Multiple left renal cysts measuring as large as 7.8 cm diameter as described above. 6. Prostatomegaly. 7. Generalized moderate skeletal degenerative and other chronic/nonacute findings as described above. COMMENTS: Consistent with the [employer]'s Incidental Findings Committee white paper (J Am Rita Radiol 2018): Any incidental renal lesion less than 1 cm or classified as too small to characterize, or any incidental cystic renal lesion characterized as simple-appearing, is likely benign. No follow-up imaging is recommended for these lesions per consensus recommendations based on imaging criteria.
--- NOTE | 2024-12-28 16:50 | ECG_ITS ---
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 Measurements Intervals [place] Rate: 61 P: -40 RI: 154 QRS: -23 QRSD: 93 T: 62 QT: 382 QTc: 386 Interpretive Statements SINUS RHYTHM BORDERLINE LEFT AXIS DEVIATION [QRS AXIS < -20] INCOMPLETE RIGHT BUNDLE BRANCH BLOCK [90+ ms QRS DURATION, TERMINAL R IN V1/V2, 40+ ms S IN I/aVL/V4/V5/V6] Compared to ECG 10/26/2024 10:39:49 NO SIGNIFICANT CHANGE Electronically Signed On 12-28-2024 23:23:55 CDT by Son Pena M.D. [email or web address]
--- NOTE | 2024-12-28 16:50 | W.ED.ABDPA2 ---
Documented by User: HARPER Macario 12/28/24 18:49 HPI - Abdominal Pain General: Chief Complaint: Abdominal Pain Stated Complaint: abd pain Time Seen by Provider: 12/28/24 16:03 Source: patient Mode of arrival: ambulatory Limitations: no limitations History of Present Illness: This patient is a 74-year-old male presenting with severe abdominal pain. He was evaluated on the of this month at an outside facility and was found to have a gallstone obstructing the bile duct. He reports that the pain initially subsided a few days after that visit, but for the past 3 days he has experienced excruciating epigastric pain radiating into his back/kidney area. Describes the pain is similar to his prior episodes of pancreatitis. He has a history of pancreatitis underwent placement of a pancreatic stent 3 years ago, which was removed this past August. Since then, he has had intermittent abdominal pain, most recently in September, which eventually resolved. He denies current alcohol use and does not take any medications known to precipitate pancreatitis. He endorses associated nausea but denies vomiting. He reports that he was advised to seek care at [facility] but declined as he initially thought the pain had resolved. He notes that he does not tolerate pain medications well due to side effects but now desires medication to control his pain and avoid hospitalization, stating he has taken Percocet over the past 2 days with no relief. All other review of systems and pertinent history were asked and are negative. His vitals are stable at this time. Nontoxic-appearing. MD elicited complaint: abdominal pain Pertinent past history: other (pancreatitis) Onset (ago): day(s) Pain Consistency: constant Location: Epigastric Severity: similar to previous episodes Quality: fullness Radiation: bilateral flank and back Associated Symptoms: Reports nausea; Denies bloating, change in stool character, chills, constipation, diarrhea, dysuria, fever(s), hematochezia and vomiting Related Data Home Medications ?Medication ?Instructions ?Recorded ?Confirmed pediatric multivitamin no.30 1 tab PO DAILY 01/15/20 09/11/22 (Gummies Children Multivitamin chewable tablet) Previous Rx's ?Medication ?Instructions ?Recorded hydrocodone 5 mg-acetaminophen 325 1 tab PO Q8H PRN pain #10 tabs 08/07/22 mg tablet metoclopramide HCl 10 mg tablet 10 mg PO Q6H PRN nausea and 09/15/22 vomiting #30 tabs metoprolol tartrate 25 mg tablet 12.5 mg (1/2 x 25 mg) PO DAILY #30 07/14/24 tabs ondansetron 4 mg disintegrating 4 mg PO Q6H PRN nausea and 10/26/24 tablet vomiting #14 tabs oxycodone-acetaminophen 7.5 mg-325 1 tab PO Q8H PRN pain #14 tabs 10/26/24 mg tablet (Percocet) Allergies Allergy/AdvReac Type Severity Reaction Status Date / Time Penicillins Allergy becomes Verified 12/28/24 16:13 overheated and sweating Review of Systems General: Reports: 10 or more systems reviewed and unremarkable except in HPI and below Const: Denies: fever(s), chills, change in appetite, change in weight or diaphoresis ENMT: Denies: throat pain or hoarseness Card: Denies: chest pain, palpitations or lightheadedness Resp: Denies: dyspnea, productive cough or wheezing GI: Reports: abdominal pain and nausea; Denies: vomiting, diarrhea, constipation, bloating, change in stool character or hematochezia : Reports: flank pain; Denies: difficulty urinating, dysuria, urinary frequency or urinary urgency Musc: Reports: back pain; Denies: neck pain Skin/Breast: Denies: rash or new lesions Neuro: Denies: headache(s) or dizziness PFSH ED PFSH: Medical History Pancreatitis Smoker Alcohol abuse Bipolar 1 disorder Insomnia Surgical History History of cataract surgery No pertinent past surgical history Family History Other Cancer Psychiatric illness Denies family history of Diabetes Clotting disorder Dementia Chronic kidney disease (CKD) Social History Smoking and tobacco/nicotine status: current every day tobacco/nicotine user cigarettes Packs smoked per day: 3 Years cigarettes smoked: 45 Alcohol intake: current Alcohol intake frequency: 3 or more drinks per day Alcohol type: hard liquor Substance/Drug Use: never Household members: spouse Housing: House Marital status: Current occupation: On disability because of lower back pain and scoliosis Physical Exam Const: COMMON NORMALS: no acute distress, average body habitus, patient oriented x3, no limitations, healthy appearing, alert and well nourished GENERAL APPEARANCE: cooperative and comfortable ORIENTATION/CONSCIOUSNESS: Yes awake OTHER: nontoxic appearing HENMT: COMMON NORMALS: normocephalic, atraumatic and moist oral mucous membranes HEAD & SCALP: normocephalic and atraumatic Eye: COMMON NORMALS: Equal, round and reactive pupils present, EOMs intact bilaterally and conjunctivae normal CONJUNCTIVA: Yes conjunctivae normal PUPIL: Yes Equal, round and reactive pupils present Neck/C-Spine: COMMON NORMALS: full ROM, supple, no meningeal signs and no JVD Resp: COMMON NORMALS: normal respiratory effort, No retractions, No use of accessory muscles and clear to auscultation bilaterally AUSCULTATION: clear to auscultation bilaterally, no crackles, no rales, no rhonchi and no wheezes Cardio: COMMON NORMALS: no JVD, regular rate, regular rhythm, No gallops present (Cardio), No clicks present (Cardio), No murmurs present (Cardio), No rub (Cardio) and Peripheral pulses 2+ throughout RATE: regular rate RHYTHM: regular rhythm PERIPHERAL PULSES: Peripheral pulses 2+ throughout GI: COMMON NORMALS: Normal to inspection, nondistended, normoactive bowel sounds present, Soft to palpation, non-tender, No hepatosplenomegaly present and no masses AUSCULTATION: Yes normoactive bowel sounds PALPATION: Yes Soft to palpation, No Guarding due to palpation present (GI), No Rigid due to palpation and Yes No hepatosplenomegaly present RECTAL EXAM: Yes deferred OTHER: Negative Slaughters sign. Negative Mehta Cueva sign. : COMMON NORMALS: Yes no CVA tenderness BLADDER/KIDNEY EXAM: Yes no CVA tenderness Back/Pelvis: COMMON NORMALS: no CVA tenderness Extremity: COMMON NORMALS: normal to inspection and full ROM Neuro: COMMON NORMALS: patient oriented x3, moves all extremities, no focal motor deficits and no sensory deficits noted SENSORIUM/ORIENTATION: Yes alert MENINGEAL SIGNS: Yes no meningeal signs Psych: COMMON NORMALS: mental status grossly normal and cooperative SPEECH: Yes excessive and Yes rapid THOUGHT PROCESS: Tangential thought process present Skin: COMMON NORMALS: no rashes or lesions noted GENERAL SKIN EXAM: no rashes or lesions noted Course Vital Signs: Vital signs: Vital Signs Temperature 98.8 F 12/28/24 16:14 Pulse Rate 63 12/28/24 17:30 Respiratory Rate 16 12/28/24 17:30 Blood Pressure 140/67 12/28/24 17:30 Pulse Oximetry 94 12/28/24 17:30 Oxygen Delivery Me thod Room Air 12/28/24 17:30 MDM - Abdominal Pain Medical Decision Making This patient is a 74-year-old male with history of pancreatitis and prior pancreatic stent placement (removed in August) who presents with severe, epigastric abdominal pain radiating to his back and kidneys, associate with nausea but no vomiting. He was previously found to have a gallstone obstructing common bile duct, and current CT imaging demonstrates continued uncomplicated interstitial edematous pancreatitis. His CBD is now dilated to 11 mm, up from 7 mm on prior imaging, and lipase is elevated at 400, however previously was 500 back in September. LFTs and total bilirubin are within normal limits, and he has chronic leukocytosis. Given his history, imaging, and persistent severe symptoms, the presentation is consistent with recurrent or ongoing biliary pancreatitis likely secondary to gallstone related obstruction. Due to the risk of complications from continued obstruction, he has been accepted to [facility] in [place] for an ERCP with Dr. Cruz, legal administrative assistant. I also spoke to hospitalist, Dr. Sims, who agrees to accept the patient into the hospital. Ambulance transfer ordered due to supportive care, including IV fluids and pain management, which has already been initiated. Currently awaiting transfer. I discussed plan for transfer with patient and family in the room, they agree and all other questions and concerns are addressed. Lab Data 12/28/24 17:02 12/28/24 17:02 Labs/Radiology: Radiology Impressions Abdomen/Pelvis CT 12/28/24 16:44 IMPRESSION: 1. Mild peripancreatic fat stranding posterior to the pancreatic head and uncinate process in the setting of chronic manifestations of calcific pancreatitis. Consider uncomplicated acute interstitial edematous pancreatitis. 2. Gallbladder distension consistent with gallbladder hydrops without CT manifestations specific for acute cholecystitis. 3. Common bile duct (CBD) is dilated measuring 11 mm diameter. If there is clinical or laboratory evidence of a biliary obstructive process, ERCP or MRCP could be considered for further anatomic evaluation. 4. Moderate burden of colonic stool without dilatation. 5. Multiple left renal cysts measuring as large as 7.8 cm diameter as described above. 6. Prostatomegaly. 7. Generalized moderate skeletal degenerative and other chronic/nonacute findings as described above. COMMENTS: Consistent with the [place] [employer]'s Incidental Findings Committee white paper (J Am Rita Radiol 2018): Any incidental renal lesion less than 1 cm or classified as too small to characterize, or any incidental cystic renal lesion characterized as simple-appearing, is likely benign. No follow-up imaging is recommended for these lesions per consensus recommendations based on imaging criteria. Chest X-Ray 12/28/24 16:44 IMPRESSION: 1. Linear atelectasis or scarring in the left lower lobe. 2. Incidental/nonacute findings are listed in the report. Laboratory Results WBC 13.96 10^3/uL (3.29-11.43) H 12/28/24 17:02 RBC 4.87 10^6/uL (3.85-5.65) 12/28/24 17:02 Hgb 15.70 g/dL (11.27-16.99) 12/28/24 17:02 Hct 45.4 % (37-53) 12/28/24 17:02 MCV 93.2 fl (82-101) 12/28/24 17:02 MCH 32.2 pg (27-33) 12/28/24 17:02 MCHC 34.6 g/dL (30-55) 12/28/24 17:02 RDW 14.3 % (12.1-15.1) 12/28/24 17:02 Plt Count 280 10^3/cmm (157-399) 12/28/24 17:02 MPV 9.5 fL (7.4-10.4) 12/28/24 17:02 Neut % (Auto) 64.3 % 12/28/24 17:02 Lymph % (Auto) 24.6 % 12/28/24 17:02 [place] % (Auto) 8.7 % 12/28/24 17:02 Eos % (Auto) 1.2 % 12/28/24 17:02 Baso % (Auto) 0.8 % 12/28/24 17:02 Neut # (Auto) 8.97 10^3/uL (1.8-7.7) H 12/28/24 17:02 Lymph # (Auto) 3.4 10^3/uL (0.8-4.8) 12/28/24 17:02 [place] # (Auto) 1.2 10^3/uL (0.2-0.9) H 12/28/24 17:02 Eos # (Auto) 0.2 10^3/uL (0.0-0.8) 12/28/24 17:02 Baso # (Auto) 0.1 10^3/uL (0.0-0.1) 12/28/24 17:02 Nucleated RBC % (auto) 0 % 12/28/24 17:02 Nucleated RBCs # 0.0 /100WBC 12/28/24 17:02 Sodium 135 mmol/L (136-145) L 12/28/24 17:02 Potassium 4.0 mmol/L (3.5-5.1) 12/28/24 17:02 Chloride 100 mmol/L (98-107) 12/28/24 17:02 Carbon Dioxide 23 mmol/L (22-29) 12/28/24 17:02 Anion Gap 16.0 (5-19) 12/28/24 17:02 BUN 12 mg/dL (8-23) 12/28/24 17:02 Creatinine 0.7 mg/dL (0.7-1.2) 12/28/24 17:02 GFR Calculation Not Reportable 12/28/24 17:02 Glucose 102 mg/dL (65-115) 12/28/24 17:02 Calculated Osmolality 280 mOsm/kg (285-295) L 12/28/24 17:02 Calcium 9.4 mg/dL (8.5-10.5) 12/28/24 17:02 Total Bilirubin 0.4 mg/dL (0.15-1.2) 12/28/24 17:02 AST 12 U/L (0-40) 12/28/24 17:02 ALT 9 U/L (0-41) 12/28/24 17:02 Alkaline Phosphatase 99 U/L (40-130) 12/28/24 17:02 Total Protein 7.6 g/dL (6.6-8.7) 12/28/24 17:02 Albumin 4.0 g/dL (3.5-5.2) 12/28/24 17:02 Globulin 3.6 g/dL (1.3-4.6) 12/28/24 17:02 Lipase 400 U/L (13-60) H 12/28/24 17:02 All radiology interpretation(s) finalized by discharge Discharge Plan Discharge Patient Disposition: Xfer Short-Term Hosp Clinical Impression: Common bile duct dilation Pancreatitis Qualifiers: Chronicity: chronic Pancreatitis type: unspecified pancreatitis type Qualified Code(s): K86.1 - Other chronic pancreatitis Condition: Stable Referrals: Denis Olmedo DO [Primary Care Provider, Family Practice] Print Language: Irish Coding Level of Care Code ED Lan Support Specialist for Chg Fwd Documented by User: Beny Stewart DO 12/28/24 19:08 HPI - Abdominal Pain General: Chief Complaint: Abdominal Pain Stated Complaint: abd pain Time Seen by Provider: 12/28/24 16:03 Related Data Home Medications ?Medication ?Instructions ?Recorded ?Confirmed pediatric multivitamin no.30 1 tab PO DAILY 01/15/20 09/11/22 (Gummies Children Multivitamin chewable tablet) Previous Rx's ?Medication ?Instructions ?Recorded hydrocodone 5 mg-acetaminophen 325 1 tab PO Q8H PRN pain #10 tabs 08/07/ mg tablet metoclopramide HCl 10 mg tablet 10 mg PO Q6H PRN nausea and 09/15/22 vomiting #30 tabs metoprolol tartrate 25 mg tablet 12.5 mg (1/2 x 25 mg) PO DAILY #30 07/14/24 tabs ondansetron 4 mg disintegrating 4 mg PO Q6H PRN nausea and 10/26/24 tablet vomiting #14 tabs oxycodone-acetaminophen 7.5 mg-325 1 tab PO Q8H PRN pain #14 tabs 10/26/24 mg tablet (Percocet) Allergies Allergy/AdvReac Type Severity Reaction Status Date / Time Penicillins Allergy becomes Verified 12/28/24 16:13 overheated and sweating PFSH ED PFSH: Medical History Pancreatitis Smoker Alcohol abuse Bipolar 1 disorder Insomnia Surgical History History of cataract surgery No pertinent past surgical history Family History Other Cancer Psychiatric illness Denies family history of Diabetes Clotting disorder Dementia Chronic kidney disease (CKD) Social History Smoking and tobacco/nicotine status: current every day tobacco/nicotine user cigarettes Packs smoked per day: 3 Years cigarettes smoked: 45 Alcohol intake: current Alcohol intake frequency: 3 or more drinks per day Alcohol type: hard liquor Substance/Drug Use: never Household members: spouse Housing: House Marital status: Current occupation: On disability because of lower back pain and scoliosis Course Vital Signs: Vital signs: Vital Signs Temperature 98.8 F 12/28/24 16:14 Pulse Rate 63 12/28/24 17:30 Respiratory Rate 16 12/28/24 17:30 Blood Pressure 140/67 12/28/24 17:30 Pulse Oximetry 94 12/28/24 17:30 Oxygen Delivery Me thod Room Air 12/28/24 17:30 MDM - Abdominal Pain Medical Decision Making This patient is a 74-year-old male with history of pancreatitis and prior pancreatic stent placement (removed in August) who presents with severe, epigastric abdominal pain radiating to his back and kidneys, associate with nausea but no vomiting. He was previously found to have a gallstone obstructing common bile duct, and current CT imaging demonstrates continued uncomplicated interstitial edematous pancreatitis. His CBD is now dilated to 11 mm, up from 7 mm on prior imaging, and lipase is elevated at 400, however previously was 500 back in September. LFTs and total bilirubin are within normal limits, and he has chronic leukocytosis. Given his history, imaging, and persistent severe symptoms, the presentation is consistent with recurrent or ongoing biliary pancreatitis likely secondary to gallstone related obstruction. Due to the risk of complications from continued obstruction, he has been accepted to [facility] in [place] for an ERCP with Dr. Cruz, legal administrative assistant. I also spoke to hospitalist, Dr. Sims, who agrees to accept the patient into the hospital. Ambulance transfer ordered due to supportive care, including IV fluids and pain management, which has already been initiated. Currently awaiting transfer. I discussed plan for transfer with patient and family in the room, they agree and all other questions and concerns are addressed. Chart reviewed and patient discussed with midlevel. Agree with assessment and plan. Lab Data 12/28/24 17:02 12/28/24 17:02 Labs/Radiology: Radiology Impressions Abdomen/Pelvis CT 12/28/24 16:44 IMPRESSION: 1. Mild peripancreatic fat stranding posterior to the pancreatic head and uncinate process in the setting of chronic manifestations of calcific pancreatitis. Consider uncomplicated acute interstitial edematous pancreatitis. 2. Gallbladder distension consistent with gallbladder hydrops without CT manifestations specific for acute cholecystitis. 3. Common bile duct (CBD) is dilated measuring 11 mm diameter. If there is clinical or laboratory evidence of a biliary obstructive process, ERCP or MRCP could be considered for further anatomic evaluation. 4. Moderate burden of colonic stool without dilatation. 5. Multiple left renal cysts measuring as large as 7.8 cm diameter as described above. 6. Prostatomegaly. 7. Generalized moderate skeletal degenerative and other chronic/nonacute findings as described above. COMMENTS: Consistent with the [place] [employer]'s Incidental Findings Committee white paper (J Am Rita Radiol 2018): Any incidental renal lesion less than 1 cm or classified as too small to characterize, or any incidental cystic renal lesion characterized as simple-appearing, is likely benign. No follow-up imaging is recommended for these lesions per consensus recommendations based on imaging criteria. Chest X-Ray 12/28/24 16:44 IMPRESSION: 1. Linear atelectasis or scarring in the left lower lobe. 2. Incidental/nonacute findings are listed in the report. Laboratory Results WBC 13.96 10^3/uL (3.29-11.43) H 12/28/24 17:02 RBC 4.87 10^6/uL (3.85-5.65) 12/28/24 17:02 Hgb 15.70 g/dL (11.27-16.99) 12/28/24 17:02 Hct 45.4 % (37-53) 12/28/24 17:02 MCV 93.2 fl (82-101) 12/28/24 17:02 MCH 32.2 pg (27-33) 12/28/24 17:02 MCHC 34.6 g/dL (30-55) 12/28/24 17:02 RDW 14.3 % (12.1-15.1) 12/28/24 17:02 Plt Count 280 10^3/cmm (157-399) 12/28/24 17:02 MPV 9.5 fL (7.4-10.4) 12/28/24 17:02 Neut % (Auto) 64.3 % 12/28/24 17:02 Lymph % (Auto) 24.6 % 12/28/24 17:02 [place] % (Auto) 8.7 % 12/28/24 17:02 Eos % (Auto) 1.2 % 12/28/24 17:02 Baso % (Auto) 0.8 % 12/28/24 17:02 Neut # (Auto) 8.97 10^3/uL (1.8-7.7) H 12/28/24 17:02 Lymph # (Auto) 3.4 10^3/uL (0.8-4.8) 12/28/24 17:02 [place] # (Auto) 1.2 10^3/uL (0.2-0.9) H 12/28/24 17:02 Eos # (Auto) 0.2 10^3/uL (0.0-0.8) 12/28/24 17:02 Baso # (Auto) 0.1 10^3/uL (0.0-0.1) 12/28/24 17:02 Nucleated RBC % (auto) 0 % 12/28/24 17:02 Nucleated RBCs # 0.0 /100WBC 12/28/24 17:02 Sodium 135 mmol/L (136-145) L 12/28/24 17:02 Potassium 4.0 mmol/L (3.5-5.1) 12/28/24 17:02 Chloride 100 mmol/L (98-107) 12/28/24 17:02 Carbon Dioxide 23 mmol/L (22-29) 12/28/24 17:02 Anion Gap 16.0 (5-19) 12/28/24 17:02 BUN 12 mg/dL (8-23) 12/28/24 17:02 Creatinine 0.7 mg/dL (0.7-1.2) 12/28/24 17:02 GFR Calculation Not Reportable 12/28/24 17:02 Glucose 102 mg/dL (65-115) 12/28/24 17:02 Calculated Osmolality 280 mOsm/kg (285-295) L 12/28/24 17:02 Calcium 9.4 mg/dL (8.5-10.5) 12/28/24 17:02 Total Bilirubin 0.4 mg/dL (0.15-1.2) 12/28/24 17:02 AST 12 U/L (0-40) 12/28/24 17:02 ALT 9 U/L (0-41) 12/28/24 17:02 Alkaline Phosphatase 99 U/L (40-130) 12/28/24 17:02 Total Protein 7.6 g/dL (6.6-8.7) 12/28/24 17:02 Albumin 4.0 g/dL (3.5-5.2) 12/28/24 17:02 Globulin 3.6 g/dL (1.3-4.6) 12/28/24 17:02 Lipase 400 U/L (13-60) H 12/28/24 17:02 Discharge Plan Discharge Patient Disposition: Xfer Short-Term Hosp Clinical Impression: Common bile duct dilation Pancreatitis Qualifiers: Chronicity: chronic Pancreatitis type: unspecified pancreatitis type Qualified Code(s): K86.1 - Other chronic pancreatitis Condition: Stable Referrals: Denis Olmedo DO [Primary Care Provider, [facility]] Print Language: Irish Coding Level of Care Code ED Lan Support Specialist for Chey Howe
[2024-12-28] MEDS: HYDROmorphone 0.5 MG/0.5 ML INJ IVP ×2 (17:04→19:18)
[2024-12-28] MEDS: ondansetron 2 mg/ML SDV 2 mL 4 MG IVP ×2 (17:04→19:46)
[2024-12-28 17:15] LABS: Hematocrit 45.4 % (37-53); Hemoglobin 15.70 g/dL (11.27-16.99); Mean Corpuscular HGB Conc 34.6 g/dL (30-55); Mean Corpuscular Hemoglobin 32.2 pg (27-33); Mean Corpuscular Volume 93.2 fl (82-101); Nucleated Red Blood Cells % 0 %; Platelet Count 280 10^3/cmm (157-399); Red Blood Count 4.87 10^6/uL (3.85-5.65); White Blood Count 13.96 10^3/uL (3.29-11.43)
[2024-12-28 17:35] LABS: Alanine Aminotransferase 9 U/L (0-41); Albumin Level 4.0 g/dL (3.5-5.2); Alkaline Phosphatase 99 U/L (40-130); Anion Gap 16.0 (5-19); Aspartate Amino Transferase 12 U/L (0-40); Blood Urea Nitrogen 12 mg/dL (8-23); Calcium 9.4 mg/dL (8.5-10.5); Carbon Dioxide 23 mmol/L (22-29); Chloride 100 mmol/L (98-107); Creatinine Clr Calc Pharmacy 86.6226; Globulin 3.6 g/dL (1.3-4.6); Glucose 102 mg/dL (65-115); Osmolality Calculated 280 mOsm/kg (285-295); Potassium 4.0 mmol/L (3.5-5.1); Sodium 135 mmol/L (136-145); Total Protein 7.6 g/dL (6.6-8.7)
[2024-12-28 17:42] LABS: Lipase 400 U/L (13-60)
[2024-12-28] MEDS: iohexol 350 mg/mL 500 mL Btl (per mL) IV (17:46)
[2024-12-28 19:44] LABS: Glucose Urine UA Negative (Normal); Nitrate Urine Negative (Negative)
[2024-12-28 19:53] LABS: Add Urine Microscopic? YES
[2024-12-28 19:55] LABS: Specific Gravity, Urine 1.060 (1.005-1.030)
== END 2024-12-28 23:00 | disposition short-term general hospital (02) ==
PROVIDERS: Emergency Medicine; Emergency Provider Physician Assistant; PCP Electrodiagnostic Medicine
DX: K83.8 Other specified diseases of biliary tract (principal); K86.1 Other chronic pancreatitis; F17.210 Nicotine dependence, cigarettes, uncomplicated
CPT/HCPCS: 71045; 74177; 80053; 81001; 83690; 85025; 93005; 96361; 96374; 96375; 96376; 99285; J1171; J1885; J2405; J7030; J9999

== ENCOUNTER 2025-03-22 09:48 | Emergency (ER) | payer MEDICARE, SELFPAY ==
--- OUTSIDE RECORDS SUMMARY | 2025-03-22 09:53 | XMS_ITS | Clinical Summary ---
Author Organization [employer] Address [address] 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
--- OUTSIDE RECORDS SUMMARY | 2025-03-22 09:53 | XMS_ITS | Encounter Summary ---
Author Organization [employer] [facility] Address [address] Attn: Epic Prel[place] [address] Care Team Providers Care Nurse Assistant Name Role Phone Unavailable Primary Care Provider Unavailabl e Encounter Details Date Type Department Care Team (Late st Contact Info) Description 03/19/2000 Outpatient Historical Vel Lozada MD [address] [address] Social History Tobacco Use Types Packs/Day Years Used Date Smoking Tobacco: Never Assessed Sex and Gender Information Value Date Recorded Sex Assigned at Not on file Legal Sex Male 4:52 AM RRT Gender Identity Not on file Sexual Orientation Not on file documented as of this encounter Plan of Treatment Not on file documented as of this encounter Visit Diagnoses Not on filedocumented in this encounter
--- OUTSIDE RECORDS SUMMARY | 2025-03-22 09:53 | XMS_ITS | Encounter Summary ---
Author Organization [facility] Address [address] [place] [address] Care Team Providers Care It Security Consulting Director Name Role Phone Unavailable Primary Care Provider Unavailabl e Encounter Details Date Type Department Care Team (Latest Contact Info) Description 08/04/1999 Outpatient Historical [facility] [address] [place] [id number] Channing Humphries MD NO ADDRESS ON FILE Chronic rhinitis (Primary Dx) Social History Tobacco Use Types Packs/Day Years Used Date Smoking Tobacco: Never Assessed Sex and Gender Information Value Date Recorded Sex Assigned at Not on file 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
[2025-03-22 09:56] VITALS: BP 162/93; PULSE 68; RESP 16; TEMP 36.2; O2SAT 100; BMI 25.1
[2025-03-22 10:52] LABS: Hematocrit 46.9 % (37-53); Hemoglobin 15.70 g/dL (11.27-16.99); Mean Corpuscular HGB Conc 33.5 g/dL (30-55); Mean Corpuscular Hemoglobin 31.8 pg (27-33); Mean Corpuscular Volume 95.1 fl (82-101); Nucleated Red Blood Cells % 0 %; Platelet Count 279 10^3/cmm (157-399); Red Blood Count 4.93 10^6/uL (3.85-5.65); White Blood Count 14.70 10^3/uL (3.29-11.43)
--- NOTE | 2025-03-22 10:57 | CTR_ITS ---
PROCEDURE INFORMATION: Exam: CT Abdomen And Pelvis With Contrast Exam date and time: 03/22/2025 11:22 AM Age: 74 years old Clinical indication: Abdominal pain; Localized; Upper; Prior surgery; Surgery date: 6+ months; Surgery type: Pancreatic duct stent; Additional info: Upper abd pain TECHNIQUE: Imaging protocol: Computed tomography of the abdomen and pelvis with contrast. Radiation optimization: All CT scans at this facility use at least one of these dose optimization techniques: automated exposure control; mA and/or kV adjustment per patient size (includes targeted exams where dose is matched to clinical indication); or iterative reconstruction. Contrast material: OMNIPAQUE 350; Contrast volume: 100 ml; Contrast route: INTRAVENOUS (IV); COMPARISON: CT abdomen pelvis w con* [id number] 12/28/2024 5:41 PM RADIATION DOSE METRICS: Total DLP (mGy-cm): 451.21 FINDINGS: Liver: Normal. No mass. Gallbladder and biliary ducts: Extrahepatic biliary stent in expected position. Dilatation of the extrahepatic bile duct measuring up to 1.3 cm in caliber. Pancreas: Diffuse pancreatic duct dilatation. There are scattered and clustered pancreatic calcifications, most numerous in the head of the pancreas. There is stranding of the peripancreatic fat around the head and neck of the pancreas with slight fluid as well. 1.5 x 1.4 cm slightly exophytic cyst in the neck of the pancreas. Spleen: Normal. No splenomegaly. Adrenal glands: Normal. No mass. Kidneys and ureters: 7.4 cm left renal. 5 mm stone in the lower pole of the left kidney. Stomach and bowel: There is slight mass effect on the posterior gastric wall with slight fluid between the gastric wall and pancreas. Appendix: No evidence of appendicitis. Intraperitoneal space: Unremarkable. No free air. No significant fluid collection. Vasculature: Unremarkable. No abdominal aortic aneurysm. Lymph nodes: Unremarkable. No enlarged lymph nodes. Urinary bladder: Mild bladder wall thickening diffusely. Reproductive: Enlarged prostate. Bones/joints: Unremarkable. No acute fracture. Soft tissues: Unremarkable. CT/CT abdomen pelvis w con* [id number] IMPRESSION: 1. Focal peripancreatic stranding and fluid around the head and neck of the pancreas which may represent focal pancreatitis. Groove pancreatitis is in the differential. 2. Clustered calcifications in the head of the pancreas which may be secondary to chronic focal pancreatitis. 3. Dilatation of the extrahepatic bile duct with biliary stent. 4. New pancreatic cyst in the neck with diffuse pancreatic duct dilatation. This may represent a small pseudocyst. Cystic pancreatic neoplasm is less likely, specifically intraductal mucinous neoplasm of the pancreas. Reimaging every 1 year for 5 years, then every 2 years for 4 years is recommended. Alternatively, EUS/FNA is recommended. (Reference: Tereso, 2017) References: Tereso GARCIA, et al. Management of Incidental Pancreatic Cysts: A White Paper of the ACR Incidental Findings Committee. J Am Rita Radiol. 2017;14(7):911-923.
--- NOTE | 2025-03-22 11:02 | ED_ITS ---
HPI - Abdominal Pain 2 General: Chief Complaint: Abdominal Pain Stated Complaint: abd pain Time Seen by Provider: 03/22/25 10:41 Source: patient and old records reviewed Mode of arrival: EMS Limitations: no limitations History of Present Illness: Patient is a 74-year-old male with past medical history of chronic pancreatitis who presents emergency department by ambulance for abdominal pain. This abdominal pain has been present for months, patient was seen here back at the end of November for similar and was subsequently transferred to [facility] in [place] due to, duct dilation associated with 11 mm gallstone and associated calcific pancreatitis. Patient tells me he had MRCP there, and afterwards did not hear anything from gastroenterology. He notes that he has subsequently tried to get in at [facility] in [place], as well as [facility], but has yet to do so. He notes that the pain has been constant, but manageable up until today when the pain got much worse, and he can no longer wait. He does not tell me what he is scheduled for, and does not tell me if he had any stones removed while in [place]. He tells me that he has been nauseous, no vomiting. No fevers or chills, no diarrhea, no urinary symptoms. Notes that the pain is epigastric and into the left upper quadrant, as well as into the back. At this time he is nontoxic- appearing, no jaundice or scleral icterus, no altered mentation, and hemodynamically stable. States that he chronically takes oxycodone for pain but it has not been helping today. Denies any alcohol consumption. MD elicited complaint: abdominal pain Onset (ago): month(s) Pain Consistency: constant Location: Epigastric Severity: similar to previous episodes Quality: stabbing Radiation: LUQ and back Associated Symptoms: Reports nausea and vomiting; Denies bloating, change in stool character, chills, constipation, diarrhea, dysuria, fever(s) and hematochezia Related Data Home Medications ?Medication ?Instructions ?Recorded ?Confirmed pediatric multivitamin no.30 1 tab PO DAILY 01/15/20 0 09/11/22 (Gummies Children Multivitamin chewable tablet) Previous Rx's ?Medication ?Instructions ?Recorded hydrocodone 5 mg-acetaminophen 325 1 tab PO Q8H PRN pa in #10 tabs 08/07/ mg tablet metoclopramide HCl 10 mg tablet 10 mg PO Q6H PRN nause a and 09/15/22 vomiting #30 tabs metoprolol tartrate 25 mg tablet 12.5 mg (1/2 x 25 mg) PO DAILY #30 07/14/24 tabs ondansetron 4 mg disintegrating 4 mg PO Q6H PRN nausea and 10/26/24 tablet vomiting #14 tabs oxycodone-acetaminophen 7.5 mg-325 1 tab PO Q8H PRN pa in #14 tabs 10/26/24 mg tablet (Percocet) ondansetron 4 mg disintegrating 4 mg PO TID PRN nausea and 03/22/25 tablet vomiting #30 tabs Allergies Allergy/AdvReac Type Severity Reaction Status Date / Time Penicillins Allergy becomes Verified 12/28/24 16:13 overheated and sweating Review of Systems 2 General: Reports: 10 or more systems reviewed and unremarkable except in HPI and below Const: Denies: fever(s), chills, change in appetite, change in weight or diaphoresis ENMT: Denies: throat pain or hoarseness Card: Denies: chest pain, palpitations or lightheadedness Resp: Denies: dyspnea, productive cough or wheezing GI: Reports: abdominal pain, nausea and vomiting; Denies: diarrhea, constipation, bloating, change in stool character or hematochezia : Denies: flank pain, difficulty urinating, dysuria, urinary frequency or urinary urgency Musc: Reports: back pain; Denies: neck pain Skin/Breast: Denies: rash or new lesions Neuro: Denies: headache(s) or dizziness PFSH ED 2 PFSH: Medical History Pancreatitis Smoker Alcohol abuse Bipolar 1 disorder Insomnia Surgical History History of cataract surgery No pertinent past surgical history Family History Other Cancer Psychiatric illness Denies family history of Diabetes Clotting disorder Dementia Chronic kidney disease (CKD) Social History Smoking and tobacco/nicotine status: current every day tobacco/nicotine user cigarettes Packs smoked per day: 3 Years cigarettes smoked: 45 Alcohol intake: current Alcohol intake frequency: 3 or more drinks per day Alcohol type: hard liquor Substance/Drug Use: never Household members: spouse Housing: House Marital status: Current occupation: On disability because of lower back pain and scoliosis Physical Exam 2 Const: COMMON NORMALS: no acute distress, average body habitus, patient oriented x3, no limitations, healthy appearing, alert and well nourished G ENERAL APPEARANCE: cooperative ORIENTATION/CONSCIOUSNESS: Yes awake OTHER: Nontoxic, hemodynamically stable Eye: COMMON NORMALS: Equal, round and reactive pupils present, EOMs intact bilaterally and conjunctivae normal CONJUNCTIVA: Yes conjunctivae normal S CLERA: sclerae normal PUPIL: Yes Equal, round and reactive pupils present OTHER: No scleral icterus Neck/C-Spine: COMMON NORMALS: full ROM, supple and no meningeal signs Resp: COMMON NORMALS: normal respiratory effort, No retractions, No use of accessory muscles and clear to auscultation bilaterally AUSCULTATION: clear to auscultation bilaterally, no crackles, no rales, no rhonchi and no wheezes Cardio: COMMON NORMALS: regular rate, regular rhythm, No gallops present (Cardio), No clicks present (Cardio), No murmurs present (Cardio) and No rub (Cardio) RATE: regular rate RHYTHM: regular rhythm GI: COMMON NORMALS: Soft to palpation, No hepatosplenomegaly present and no masses AUSCULTATION: Yes normoactive bowel sounds PALPATION: Yes Soft to palpation, Yes Tenderness to palpation present (GI) (epigastric, LUQ), No Guarding due to palpation present (GI), No Rigid due to palpation and Yes No hepatosplenomegaly present RECTAL EXAM: Yes deferred : COMMON NORMALS: Yes no CVA tenderness BLADDER/KIDNEY EXAM: Yes no CVA tenderness Back/Pelvis: COMMON NORMALS: no CVA tenderness Extremity: COMMON NORMALS: normal to inspection and full ROM Neuro: COMMON NORMALS: patient oriented x3, moves all extremities, no focal motor deficits and no sensory deficits noted SENSORIUM/ORIENTATION: Yes alert MENINGEAL SIGNS: Yes no meningeal signs Psych: COMMON NORMALS: mental status grossly normal, cooperative and speech normal SPEECH: Yes normal speech Skin: COMMON NORMALS: no rashes or lesions noted GENERAL SKIN EXAM: no rashes or lesions noted Course 2 Vital Signs: Vital signs: Vital Signs Temperature 97.2 F L 03/22/25 09:56 Pulse Rate 67 03/22/25 13:00 Respiratory Rate 22 H 03/22/25 11:50 Blood Pressure 164/65 03/22/25 12:00 Pulse Oximetry 90 03/22/25 13:00 Oxygen Delivery Me thod Room Air 03/22/25 09:56 MDM - Abdominal Pain Medical Decision Making Patient presenting with acute on chronic upper abdominal pain. He has been seen here in the emergency department before, in late November, where he was transferred to [facility] due to dilation of common bile duct and blockage of a stone. He had MRCP there, states he had the stone removed and subsequently was discharged home and told to follow-up. States he has not followed up since, he has tried to follow-up at [facility] in [facility] because he was unaware that there was removal of a stone. Denies any recent alcohol consumption. Pain is consistent with his history of pancreatitis, his lipase is minimally elevated today but not significant from baseline. CT is repeated and does show probable minor acute on chronic pancreatitis but no active blockage. This is confirmed by gallbladder ultrasound confirming that other than dilatation and placement of a stent, which she had at [facility], there is no active blockage. His bilirubin is normal, liver enzymes normal. He has chronic leukocytosis, this is not unchanged today. Overall this patient is stable for discharge home, his pain was controlled here with Dilaudid, he is agreeing to discharge home and knows to come back if his condition worsens. He chronically takes Percocet for pain. He has upcoming appointment with primary care who he has yet to follow-up with. Lab Data 03/22/25 10:44 03/22/25 10:44 Labs/Radiology: Radiology Impressions Abdomen/Pelvis CT 03/22/25 10:57 IMPRESSION: 1. Focal peripancreatic stranding and fluid around the head and neck of the pancreas which may represent focal pancreatitis. Groove pancreatitis is in the differential. 2. Clustered calcifications in the head of the pancreas which may be secondary to chronic focal pancreatitis. 3. Dilatation of the extrahepatic bile duct with biliary stent. 4. New pancreatic cyst in the neck with diffuse pancreatic duct dilatation. This may represent a small pseudocyst. Cystic pancreatic neoplasm is less likely, specifically intraductal mucinous neoplasm of the pancreas. Reimaging every 1 year for 5 years, then every 2 years for 4 years is recommended. Alternatively, EUS/FNA is recommended. (Reference: Tereso, 2017) References: Tereso GARCIA, et al. Management of Incidental Pancreatic Cysts: A White Paper of the ACR Incidental Findings Committee. J Am Rita Radiol. 2017;14(7):911-923. Gallbladder Ultrasound 03/22/25 12:31 IMPRESSION: 1. Cystic lesion in the pancreas which appears anechoic. Same differential as on the CT abdomen pelvis performed earlier today. 2. Extrahepatic biliary dilatation. Laboratory Results WBC 14.70 10^3/uL (3.29-11.43) H 03/22/25 10:44 RBC 4.93 10^6/uL (3.85-5.65) 03/22/25 10:44 Hgb 15.70 g/dL (11.27-16.99) 03/22/25 10:44 Hct 46.9 % (37-53) 03/22/25 10:44 MCV 95.1 fl (82-101) 03/22/25 10:44 MCH 31.8 pg (27-33) 03/22/25 10:44 MCHC 33.5 g/dL (30-55) 03/22/25 10:44 RDW 14.4 % (12.1-15.1) 03/22/25 10:44 Plt Count 279 10^3/cmm (157-399) 03/22/25 10:44 MPV 9.4 fL (7.4-10.4) 03/22/25 10:44 Neut % (Auto) 77.0 % 03/22/25 10:44 Lymph % (Auto) 14.3 % 03/22/25 10:44 Mcleod % (Auto) 6.9 % 03/22/25 10:44 Eos % (Auto) 0.9 % 03/22/25 10:44 Baso % (Auto) 0.6 % 03/22/25 10:44 Neut # (Auto) 11.32 10^3/uL (1.8-7.7) H 03/22/25 10:44 Lymph # (Auto) 2.1 10^3/uL (0.8-4.8) 03/22/25 10:44 Mcleod # (Auto) 1.0 10^3/uL (0.2-0.9) H 03/22/25 10:44 Eos # (Auto) 0.1 10^3/uL (0.0-0.8) 03/22/25 10:44 Baso # (Auto) 0.1 10^3/uL (0.0-0.1) 03/22/25 10:44 Nucleated RBC % (auto) 0 % 03/22/25 10:44 Nucleated RBCs # 0.0 /100WBC 03/22/25 10:44 Sodium 140 mmol/L (136-145) 03/22/25 10:44 Potassium 4.1 mmol/L (3.5-5.1) 03/22/25 10:44 Chloride 105 mmol/L (98-107) 03/22/25 10:44 Carbon Dioxide 22 mmol/L (22-29) 03/22/25 10:44 Anion Gap 17.1 (5-19) 03/22/25 10:44 BUN 22 mg/dL (8-23) 03/22/25 10:44 Creatinine 0.9 mg/dL (0.7-1.2) 03/22/25 10:44 GFR Calculation Not Reportable 03/22/25 10:44 Glucose 122 mg/dL (65-115) H 03/22/25 10:44 Calculated Osmolality 295 mOsm/kg (285-295) 03/22/25 10:44 Lactic Acid 1.2 mmol/L (0.5-2.2) 03/22/25 10:44 Calcium 9.4 mg/dL (8.5-10.5) 03/22/25 10:44 Total Bilirubin 0.4 mg/dL (0.15-1.2) 03/22/25 10:44 AST 11 U/L (0-40) 03/22/25 10:44 ALT 9 U/L (0-41) 03/22/25 10:44 Alkaline Phosphatase 101 U/L (40-130) 03/22/25 10:44 C-Reactive Protein 3.8 mg/L (0.0-4.9) 03/22/25 10:44 Total Protein 7.6 g/dL (6.6-8.7) 03/22/25 10:44 Albumin 4.1 g/dL (3.5-5.2) 03/22/25 10:44 Globulin 3.5 g/dL (1.3-4.6) 03/22/25 10:44 Lipase 528 U/L (13-60) H 03/22/25 10:44 Amorphous Sediment Not Reportable 03/22/25 13:31 All radiology interpretation(s) finalized by discharge Discharge Plan Discharge Patient Disposition: Home Clinical Impression: Acute on chronic pancreatitis Condition: Stable Prescriptions: New ondansetron 4 mg tablet,disintegrating 4 mg PO TID PRN (Reason: nausea and vomiting) Qty: 30 0RF No Action Gummies Children Multivitamin Tablet,Chewable 1 tab PO DAILY oxycodone-acetaminophen [Percocet] 7.5-325 mg tablet 1 tab PO Q8H PRN (Reason: pain) Qty: 14 0RF ondansetron 4 mg tablet,disintegrating 4 mg PO Q6H PRN (Reason: nausea and vomiting) Qty: 14 0RF hydrocodone-acetaminophen 5-325 mg tablet 1 tab PO Q8H PRN (Reason: pain) Qty: 10 0RF metoclopramide HCl 10 mg tablet 10 mg PO Q6H PRN (Reason: nausea and vomiting) Qty: 30 0RF metoprolol tartrate 25 mg tablet 12.5 mg PO DAILY Qty: 30 0RF Discharge Orders: Discharge ED (Routine); Ordered 03/22/25 Ordered By: Ismael Armando Referrals: Denis Olmedo DO [Primary Care Provider, Family Practice] Patient Instructions: Patient Portal & Lindsey Instructions Activity Restrictions/Additional Instructions: Please keep planned follow-up with primary care. Continue taking your Percocet at home. Make sure that you are drinking plenty of fluids, take Zofran as prescribed for your nausea. Avoid any greasy or fatty foods. Please return with fevers, altered mental status, persistent nausea vomiting, yellowing of your skin or eyes, or any other major concerns that you have. Print Language: Jordanian Coding Level of Care Code ED Career Guidance Technician for Chey Howe
[2025-03-22 11:12] LABS: Alanine Aminotransferase 9 U/L (0-41); Albumin Level 4.1 g/dL (3.5-5.2); Alkaline Phosphatase 101 U/L (40-130); Anion Gap 17.1 (5-19); Aspartate Amino Transferase 11 U/L (0-40); Blood Urea Nitrogen 22 mg/dL (8-23); Calcium 9.4 mg/dL (8.5-10.5); Carbon Dioxide 22 mmol/L (22-29); Chloride 105 mmol/L (98-107); Globulin 3.5 g/dL (1.3-4.6); Glucose 122 mg/dL (65-115); Osmolality Calculated 295 mOsm/kg (285-295); Potassium 4.1 mmol/L (3.5-5.1); Sodium 140 mmol/L (136-145); Total Protein 7.6 g/dL (6.6-8.7)
[2025-03-22 11:13] LABS: Lactic Sepsis W/Reflex 1.2 mmol/L (0.5-2.2)
[2025-03-22] MEDS: iohexol 350 mg/mL 500 mL Btl (per mL) IV (11:16)
[2025-03-22 11:21] LABS: Lipase 528 U/L (13-60)
[2025-03-22] MEDS: metoclopramide 5 mg/mL SDV 2 mL 10 MG IVP (11:49)
[2025-03-22 11:50] VITALS: RESP 22
[2025-03-22] MEDS: fentaNYL 50 mcg/mL INJ 2mL 80 MCG IVP (11:50)
[2025-03-22 12:00] VITALS: BP 164/65; PULSE 65; O2SAT 93
--- NOTE | 2025-03-22 12:31 | USR_ITS ---
PROCEDURE INFORMATION: Exam: US Abdomen, Limited; Right Upper Quadrant Exam date and time: 03/22/2025 12:58 PM Age: 74 years old Clinical indication: Abdominal pain; Generalized; Prior surgery; Surgery date: 6+ months; Surgery type: Unsure of dates but patient has a cbd stent; Additional info: Ruq pain TECHNIQUE: Imaging protocol: Real time ultrasound of the abdomen with image documentation. Limited exam focused on the right upper quadrant. COMPARISON: CT abdomen pelvis 03/22/2025; US abdomen complete* [id number] 09/15/2021 1:07 PM FINDINGS: Liver: Normal. No masses. Gallbladder: Normal. No gallstones. There is no gallbladder wall thickening. Biliary ducts: Dilated extrahepatic bile duct measuring 1.2 cm in caliber. Stent in the extrahepatic duct. Pancreas: 1.6 x 1.2 x 1.6 cm cystic lesion in the pancreas in the region of the neck which appears anechoic. Pancreatic duct dilatation is not as well visualized as on CT. Right kidney: Normal. No mass. No hydronephrosis. Intraperitoneal space: Trace ascites. US/US gall bladder [id number] IMPRESSION: 1. Cystic lesion in the pancreas which appears anechoic. Same differential as on the CT abdomen pelvis performed earlier today. 2. Extrahepatic biliary dilatation.
[2025-03-22 13:00] VITALS: PULSE 67; O2SAT 90
[2025-03-22] MEDS: HYDROmorphone 0.5 MG/0.5 ML INJ IVP (13:03)
[2025-03-22 13:36] LABS: Glucose Urine UA Negative (Normal); Nitrate Urine Negative (Negative)
[2025-03-22 13:59] LABS: Specific Gravity, Urine 1.061 (1.005-1.030)
[2025-03-22 14:00] LABS: UA Slide Review UA Slide Review Perf
[2025-03-22] MEDS: ondansetron 2 mg/ML SDV 2 mL 4 MG IVP (14:30)
[2025-03-22] MEDS: HYDROmorphone tab 2 MG TABLET PO (14:30)
[2025-03-22 14:42] VITALS: BP 117/68; PULSE 60; O2SAT 97
== END 2025-03-22 14:43 | disposition home or self-care (01) ==
PROVIDERS: Emergency Medicine; Emergency Provider Physician Assistant; PCP Electrodiagnostic Medicine
DX: K85.90 Acute pancreatitis without necrosis or infection, unspecified (principal); K86.1 Other chronic pancreatitis
CPT/HCPCS: 36415; 74177; 76705; 80053; 81001; 83605; 83690; 85025; 86140; 96374; 96375; 99285; J1171; J2405; J2765; J3010; J7030; J9999

== ENCOUNTER 2025-04-17 19:19 | Emergency (ER) | payer MEDICARE, SELFPAY ==
[2025-04-17] VITALS (10 sets, daily range): BP systolic 119–176; BP diastolic 61–97; PULSE 58–78; RESP 17–22; TEMP 36.3; O2SAT 93–98; BMI 22.5
--- OUTSIDE RECORDS SUMMARY | 2025-04-17 19:28 | XMS_ITS | Clinical Summary ---
Author Organization [facility] Address [address] 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
--- OUTSIDE RECORDS SUMMARY | 2025-04-17 19:28 | XMS_ITS | Encounter Summary ---
Author Organization [facility] Address [address] [place] [address] Care Team Providers Care Gill Tender Name Role Phone Unavailable Primary Care Provider Unavailabl e Encounter Details Date Type Department Care Team (Latest Contact Info) Description 08/04/1999 Outpatient Historical [facility] [address] [place] [id number] Channing Humphries MD NO ADDRESS ON FILE Chronic rhinitis (Primary Dx) Social History Tobacco Use Types Packs/Day Years Used Date Smoking Tobacco: Never Assessed Sex and Gender Information Value Date Recorded Sex Assigned at Not on file 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
--- OUTSIDE RECORDS SUMMARY | 2025-04-17 19:28 | XMS_ITS | Encounter Summary ---
Author Organization [email or web address] Address [address] Attn: Epic Prelude [place] [address] Care Team Providers Care Biological Plant Operator Name Role Phone Unavailable Primary Care Provider Unavailabl e Encounter Details Date Type Department Care Team (Late st Contact Info) Description 03/19/2000 Outpatient Historical Vel Lozada MD [address] [address] Social History Tobacco Use Types Packs/Day Years Used Date Smoking Tobacco: Never Assessed Sex and Gender Information Value Date Recorded Sex Assigned at Not on file Legal Sex Male 4:52 AM BATTER OUT Gender Identity Not on file Sexual Orientation Not on file documented as of this encounter Plan of Treatment Not on file documented as of this encounter Visit Diagnoses Not on filedocumented in this encounter
--- NOTE | 2025-04-17 20:11 | XRR_ITS ---
PROCEDURE INFORMATION: Exam: XR Chest Exam date and time: 04/17/2025 8:31 PM Age: 74 years old Clinical indication: Chest pressure; Prior surgery; Surgery date: 6+ months; Surgery type: Cbd stent; C/O chest pain; Additional info: Cp TECHNIQUE: Imaging protocol: Radiologic exam of the chest. Views: 1 view. COMPARISON: CR XR chest 1V portable [id number] 12/28/2024 5:03 PM FINDINGS: Lungs: Increased interstitial markings with peribronchial cuffing in the left lung base are nonspecific but can be seen the setting of bronchitis, pulmonary vascular congestion, viral infection and small-vessel airways disease. Pleural spaces: Unremarkable. No pleural effusion. No pneumothorax. Heart/Mediastinum: Unremarkable. No cardiomegaly. Bones/joints: Unremarkable. XR/XR chest 1V portable [id number] IMPRESSION: Increased interstitial markings with peribronchial cuffing in the left lung base are nonspecific but can be seen the setting of bronchitis, pulmonary vascular congestion, viral infection and small-vessel airways disease.
--- NOTE | 2025-04-17 20:11 | CTR_ITS ---
PROCEDURE INFORMATION: Exam: CT Abdomen And Pelvis With Contrast Exam date and time: 04/17/2025 8:39 PM Age: 74 years old Clinical indication: Abdominal pain; Localized; Left upper quadrant (luq); Prior surgery; Surgery date: 6+ months; Surgery type: Cbd stent; C/O luq pain. History of pancreatitis. ; Additional info: HX pancreatitis and cbd stent, now with sudden abrupt luq pa TECHNIQUE: Imaging protocol: Computed tomography of the abdomen and pelvis with contrast. Radiation optimization: All CT scans at this facility use at least one of these dose optimization techniques: automated exposure control; mA and/or kV adjustment per patient size (includes targeted exams where dose is matched to clinical indication); or iterative reconstruction. Contrast material: OMNI 350; Contrast volume: 100 ml; Contrast route: INTRAVENOUS (IV); COMPARISON: CT abdomen pelvis w con* [id number] 03/22/2025 11:22 AM RADIATION DOSE METRICS: Total DLP (mGy-cm): 402.55 FINDINGS: Liver: Normal. No mass. Gallbladder and biliary ducts: There is a common bile duct stent in place. Pancreas: Extensive fat stranding and non loculated fluid along the head of the pancreas consistent with acute pancreatitis. Multiple coarse calcifications in the head of the pancreas with a dilated irregular pancreatic duct consistent with chronic pancreatitis. There is a 14 mm simple appearing cystic structure in the neck of the pancreas. Spleen: Normal. No splenomegaly. Adrenal glands: Normal. No mass. Kidneys and ureters: There is a nonobstructing 5 mm stone in the left kidney. Left simple appearing renal cyst is present which does not need further follow-up. Stomach and bowel: Unremarkable. No obstruction. No mucosal thickening. Appendix: No evidence of appendicitis. Intraperitoneal space: Unremarkable. No free air. No significant fluid collection. Vasculature: Unremarkable. No abdominal aortic aneurysm. Lymph nodes: Unremarkable. No enlarged lymph nodes. Urinary bladder: Unremarkable as visualized. Reproductive: Unremarkable as visualized. Bones/joints: Unremarkable. No acute fracture. Soft tissues: Unremarkable. CT/CT abdomen pelvis w con* [id number] IMPRESSION: 1. Acute pancreatitis redemonstrated and similar to the prior examination. 2. No peripancreatic loculated fluid collection to suggest pseudocyst. 3. Common bile duct stent stable in position. COMMENTS: Consistent with the [employer]'s Incidental Findings Committee white paper (J Am Rita Radiol 2018): Any incidental renal lesion less than 1 cm or classified as too small to characterize, or any incidental cystic renal lesion characterized as simple-appearing, is likely benign. No follow-up imaging is recommended for these lesions per consensus recommendations based on imaging criteria.
[2025-04-17] MEDS: HYDROmorphone 0.5 MG/0.5 ML INJ IVP (20:35)
[2025-04-17] MEDS: ondansetron 2 mg/ML SDV 2 mL 4 MG IM (20:35)
[2025-04-17] MEDS: iohexol 350 mg/mL 500 mL Btl (per mL) IV (20:40)
--- NOTE | 2025-04-17 20:52 | PC.NURSE ---
notified patient we needed urine sample he does not need to go at this time as he states he has no drank fluids all day but fluids are going and patient was given urinal and will push call light for nurse to collect urine once he is able to go
--- NOTE | 2025-04-17 20:56 | ED_ITS ---
HPI - Abdominal Pain 2 General: Chief Complaint: Abdominal Pain Stated Complaint: CP sharp pain in/ under L breast Time Seen by Provider: 04/17/25 19:57 History of Present Illness: Patient is a 74-year-old male with a history of recurrent pancreatitis and prior pancreatic duct stenting presents with severe, constant, sharp abdominal pain rated as 11/10, beginning at approximately 3:00 PM today. The pain radiates to the back and left flank, including the left kidney area, and is associated with a palpable knot under the left rib. The pain is described as more intense and qualitatively different from previous episodes of pancreatitis, which typically radiate across the upper abdomen and back. The patient denies any recent trauma, falls, coughing, or vomiting, and reports no new urinary symptoms beyond chronic prostate-related discomfort. He has not eaten much today except for coffee, water, and a few crackers, and notes that. He does not currently drink alcohol. Associated Symptoms: Reports vomiting; Denies chills, diarrhea and fever(s) Related Data Home Medications ?Medication ?Instructions ?Recorded ?Confirmed pediatric multivitamin no.30 1 tab PO DAILY 01/15/20 0 09/11/22 (Gummies Children Multivitamin chewable tablet) Previous Rx's ?Medication ?Instructions ?Recorded hydrocodone 5 mg-acetaminophen 325 1 tab PO Q8H PRN pa in #10 tabs 08/07/21 mg tablet metoclopramide HCl 10 mg tablet 10 mg PO Q6H PRN nause a and 09/15/22 vomiting #30 tabs metoprolol tartrate 25 mg tablet 12.5 mg (1/2 x 25 mg) PO DAILY #30 07/14/24 tabs ondansetron 4 mg disintegrating 4 mg PO Q6H PRN nausea and 10/26/24 tablet vomiting #14 tabs oxycodone-acetaminophen 7.5 mg-325 1 tab PO Q8H PRN pa in #14 tabs 10/26/24 mg tablet (Percocet) ondansetron 4 mg disintegrating 4 mg PO TID PRN nausea and 03/22/25 tablet vomiting #30 tabs hydromorphone 2 mg tablet 2 mg PO Q6H PRN pain #10 tab s 04/17/25 (Dilaudid) ondansetron 4 mg disintegrating 4 mg PO Q6H PRN nausea and 04/17/25 tablet vomiting #14 tabs Allergies Allergy/AdvReac Type Severity Reaction Status Date / Time Penicillins Allergy becomes Verified 04/17/25 19:31 overheated and sweating Review of Systems 2 General: Reports: 10 or more systems reviewed and unremarkable except in HPI and below Const: Denies: fever(s) or chills Eyes: Denies: change in vision or eye discharge Card: Denies: chest pain, palpitations or swelling of feet/ankles Resp: Denies: dyspnea or productive cough GI: Reports: abdominal pain and vomiting; Denies: diarrhea : Denies: difficulty urinating Musc: Denies: neck pain or back pain Skin/Breast: Denies: rash or jaundice Neuro: Denies: headache(s), numbness in extremities or weakness in extremities Josias/Lymph: Denies: easy bruising or easy bleeding PFSH ED 2 PFSH: Medical History (Updated 04/17/25 @ 23:05 by French Rollins DO) Pancreatitis Smoker Alcohol abuse Bipolar 1 disorder Insomnia Surgical History History of cataract surgery No pertinent past surgical history Family History Other Cancer Psychiatric illness Denies family history of Diabetes Clotting disorder Dementia Chronic kidney disease (CKD) Social History Smoking and tobacco/nicotine status: current every day tobacco/nicotine user cigarettes Packs smoked per day: 3 Years cigarettes smoked: 45 Alcohol intake: current Alcohol intake frequency: 3 or more drinks per day Alcohol type: hard liquor Substance/Drug Use: never Household members: spouse Housing: House Marital status: Current occupation: On disability because of lower back pain and scoliosis Physical Exam 2 Narrative: EXAM NARRATIVE: Appears in mild distress secondary to pain but vital stable, afebrile, no acute distress. Abdomen soft, nondistended, moderate epigastric tenderness, Baltazar sign negative, not peritonitic, bowel sounds intact, no CVA tenderness. Breathing comfortably on room air, saturating well, speaking full sentences without getting short of breath, normal sinus rhythm with no murmurs, no leg swelling, 2+ pulses throughout Course 2 Vital Signs: Vital signs: Vital Signs Temperature 97.4 F L 04/17/25 19:21 Pulse Rate 58 L 04/17/25 23:22 Respiratory Rate 17 04/17/25 23:22 Blood Pressure 134/93 04/17/25 23:22 Pulse Oximetry 95 04/17/25 23:22 Oxygen Delivery Me thod Room Air 04/17/25 19:21 MDM - Abdominal Pain Medical Decision Making -ddx: acute versus chronic pancreatitis, cholecystitis, choledocholithiasis, SBO, gastritis, GERD, ACS, pneumonia, nephrolithiasis - Patient presents with abrupt and worsening abdominal pain, has a large history of pancreatitis, does not currently drink alcohol, has had a previous pancreatic stent, no obvious provoking factors today's episode, unrelieved by home medications, does not follow with a GI doctor or PCP outpatient. Will get CT abdomen pelvis, abdominal labs, symptom control with fluids, Dilaudid and Zofran. - CT scan seemingly prior to last 1 he had in which there was inflammatory stranding around pancreas on the background of chronic pancreatitis calcifications in the head and also a cyst but no other acute intra-abdominal pathology, seemingly correlated with his lipase of over 600 and had a acute on chronic pancreatitis, remainder of labs relatively reassuring, was given a second dose of Dilaudid with complete symptom improvement, was able to drink and eat without any nausea or worsening of his abdominal pain. Because of his complex history with pancreatitis and no GI that he is seen, offered admission for further evaluation management of this but with his pain control and he was comfortable doing it on an outpatient basis and so we prescribed him Zofran, oral Dilaudid, appointment request was made to GI and patient was discharged in stable condition with strict return precautions given, at bedside and understanding of plan of care. Lab Data 04/17/25 20:52 04/17/25 20:52 Labs/Radiology: Radiology Impressions Abdomen/Pelvis CT 04/17/25 20:11 IMPRESSION: 1. Acute pancreatitis redemonstrated and similar to the prior examination. 2. No peripancreatic loculated fluid collection to suggest pseudocyst. 3. Common bile duct stent stable in position. COMMENTS: Consistent with the [employer]'s Incidental Findings Committee white paper (J Am Rita Radiol 2018): Any incidental renal lesion less than 1 cm or classified as too small to characterize, or any incidental cystic renal lesion characterized as simple-appearing, is likely benign. No follow-up imaging is recommended for these lesions per consensus recommendations based on imaging criteria. Chest X-Ray 04/17/25 20:11 IMPRESSION: Increased interstitial markings with peribronchial cuffing in the left lung base are nonspecific but can be seen the setting of bronchitis, pulmonary vascular congestion, viral infection and small-vessel airways disease. Laboratory Results WBC 12.56 10^3/uL (3.29-11.43) H 04/17/25 20:52 RBC 4.22 10^6/uL (3.85-5.65) 04/17/25 20:52 Hgb 13.50 g/dL (11.27-16.99) 04/17/25 20:52 Hct 39.9 % (37-53) 04/17/25 20:52 MCV 94.5 fl (82-101) 04/17/25 20:52 MCH 32.0 pg (27-33) 04/17/25 20:52 MCHC 33.8 g/dL (30-55) 04/17/25 20:52 RDW 14.5 % (12.1-15.1) 04/17/25 20:52 Plt Count 255 10^3/cmm (157-399) 04/17/25 20:52 MPV 9.1 fL (7.4-10.4) 04/17/25 20:52 Neut % (Auto) 67.2 % 04/17/25 20:52 Lymph % (Auto) 21.5 % 04/17/25 20:52 [place] % (Auto) 8.1 % 04/17/25 20:52 Eos % (Auto) 2.2 % 04/17/25 20:52 Baso % (Auto) 0.7 % 04/17/25 20:52 Neut # (Auto) 8.43 10^3/uL (1.8-7.7) H 04/17/25 20:52 Lymph # (Auto) 2.7 10^3/uL (0.8-4.8) 04/17/25 20:52 [place] # (Auto) 1.0 10^3/uL (0.2-0.9) H 04/17/25 20:52 Eos # (Auto) 0.3 10^3/uL (0.0-0.8) 04/17/25 20:52 Baso # (Auto) 0.1 10^3/uL (0.0-0.1) 04/17/25 20:52 Nucleated RBC % (auto) 0 % 04/17/25 20:52 Nucleated RBCs # 0.0 /100WBC 04/17/25 20:52 Sodium 135 mmol/L (136-145) L 04/17/25 20:52 Potassium 3.8 mmol/L (3.5-5.1) 04/17/25 20:52 Chloride 100 mmol/L (98-107) 04/17/25 20:52 Carbon Dioxide 22 mmol/L (22-29) 04/17/25 20:52 Anion Gap 16.8 (5-19) 04/17/25 20:52 BUN 16 mg/dL (8-23) 04/17/25 20:52 Creatinine 0.7 mg/dL (0.7-1.2) 04/17/25 20:52 GFR Calculation Not Reportable 04/17/25 20:52 Glucose 82 mg/dL (65-115) 04/17/25 20:52 Calculated Osmolality 280 mOsm/kg (285-295) L 04/17/25 20:52 Lactic Acid 1.2 mmol/L (0.5-2.2) 04/17/25 20:52 Calcium 8.7 mg/dL (8.5-10.5) 04/17/25 20:52 Phosphorus 3.0 mg/dL (2.5-4.5) 04/17/25 20:52 Magnesium 1.7 mg/dL (1.7-2.3) 04/17/25 20:52 Total Bilirubin 0.4 mg/dL (0.15-1.2) 04/17/25 20:52 AST 9 U/L (0-40) 04/17/25 20:52 ALT 6 U/L (0-41) 04/17/25 20:52 Alkaline Phosphatase 88 U/L (40-130) 04/17/25 20:52 Troponin T Baseline 9 ng/L (0-15) 04/17/25 20:52 Troponin T 60 Minute 9.63 ng/L (0-15) 04/17/25 21:46 Delta Troponin T 0.63 ABS# (0-10) 04/17/25 21:46 C-Reactive Protein 4.3 mg/L (0.0-4.9) 04/17/25 20:52 NT-Pro-B Natriuret Pep 83 pg/mL (0-125) 04/17/25 20:52 Total Protein 5.8 g/dL (6.6-8.7) L 04/17/25 20:52 Albumin 3.5 g/dL (3.5-5.2) 04/17/25 20:52 Globulin 2.3 g/dL (1.3-4.6) 04/17/25 20:52 Lipase 841 U/L (13-60) H 04/17/25 20:52 Urine Color Yellow (Yellow) 04/17/25 23:07 Urine Appearance Clear (CLEAR) 04/17/25 23:07 Urine pH 5.0 (5-7) 04/17/25 23:07 Ur Specific [place] 1.071 (1.005-1.030) H 04/17/25 23:07 Urine Protein Negative (Negative) 04/17/25 23:07 Urine Glucose (UA) Negative (Normal) 04/17/25 23:07 Urine Ketones Trace (Negative) 04/17/25 23:07 Urine Blood Trace (Negative) A 04/17/25 23:07 Urine Nitrate Negative (Negative) 04/17/25 23:07 Urine Bilirubin Negative (Negative) 04/17/25 23:07 Urine Urobilinogen 0.2 mg/dL (Negative) 04/17/25 23:07 Ur Leukocyte Esterase Negative (Negative) 04/17/25 23:07 Urine RBC 0-2 /hpf (0-2) 04/17/25 23:07 Urine WBC 0-5 /hpf (0-5) 04/17/25 23:07 Ur Squamous Epith Cells 0-5 /hpf (0-5) 04/17/25 23:07 Amorphous Sediment Not Reportable 04/17/25 23:07 Urine Bacteria None seen /hpf (NONE) 04/17/25 23:07 Hyaline Casts 0-4 /lpf H 04/17/25 23:07 All radiology interpretation(s) finalized by discharge Discharge Plan Discharge Patient Disposition: Home Clinical Impression: Acute on chronic pancreatitis Condition: Stable Prescriptions: New hydromorphone [Dilaudid] 2 mg tablet 2 mg PO Q6H PRN (Reason: pain) Qty: 10 0RF ondansetron 4 mg tablet,disintegrating 4 mg PO Q6H PRN (Reason: nausea and vomiting) Qty: 14 0RF No Action Gummies Children Multivitamin Tablet,Chewable 1 tab PO DAILY oxycodone-acetaminophen [Percocet] 7.5-325 mg tablet 1 tab PO Q8H PRN (Reason: pain) Qty: 14 0RF ondansetron 4 mg tablet,disintegrating 4 mg PO Q6H PRN (Reason: nausea and vomiting) Qty: 14 0RF ondansetron 4 mg tablet,disintegrating 4 mg PO TID PRN (Reason: nausea and vomiting) Qty: 30 0RF hydrocodone-acetaminophen 5-325 mg tablet 1 tab PO Q8H PRN (Reason: pain) Qty: 10 0RF metoclopramide HCl 10 mg tablet 10 mg PO Q6H PRN (Reason: nausea and vomiting) Qty: 30 0RF metoprolol tartrate 25 mg tablet 12.5 mg PO DAILY Qty: 30 0RF Discharge Orders: Discharge ED (Routine); Ordered 04/17/25 Ordered By: French Rollins Referrals: Chantel Patel DO [Primary Care Provider, RAT BREEDER] Discharge Diet: As Directed and Soft Mechanical Discharge Activity: Resume usual activity Patient Instructions: Abdominal Pain (ED), Opioid Safety, Pain Management, Patient Portal & Lindsey Instructions Activity Restrictions/Additional Instructions: You were seen for your abdominal pain, you were evaluated with labs, chest x-ray and CT scan which found you to have an acute on chronic pancreatitis as the cause of your pain. You improved with fluids, nausea and pain medication and were deemed stable to be discharged home. For continued management of your pancreatitis, try to eat small and meals over the next few days, ensure you stay hydrated. For the pain, alternate ibuprofen 40 mg and Tylenol 650 mg every 4 hours as needed, for breakthrough pain on top of this, use the oral Dilaudid 2 mg every 6 hours as needed, do not drive or operate heavy machinery with this as it can be sedating. In addition, use the Zofran, 4 mg every 8 hours as needed for nausea. For further management of your pancreatitis, an appointment referral has been made for you at the GI clinic, they should be getting into contact with you in the next few days for initial appointment. Return to the ED with severe worsening of your pain, continuous vomiting, fevers, inability to eat or drink, any other emergent concerns. Print Language: Colombian Coding Level of Care Code ED Screedman/Laborer for Chey Howe
[2025-04-17 20:59] LABS: Hematocrit 39.9 % (37-53); Hemoglobin 13.50 g/dL (11.27-16.99); Mean Corpuscular HGB Conc 33.8 g/dL (30-55); Mean Corpuscular Hemoglobin 32.0 pg (27-33); Mean Corpuscular Volume 94.5 fl (82-101); Nucleated Red Blood Cells % 0 %; Platelet Count 255 10^3/cmm (157-399); Red Blood Count 4.22 10^6/uL (3.85-5.65); White Blood Count 12.56 10^3/uL (3.29-11.43)
[2025-04-17 21:15] LABS: Lactic Sepsis W/Reflex 1.2 mmol/L (0.5-2.2)
[2025-04-17 21:19] LABS: Troponin(5th) Baseline 9 ng/L (0-15)
[2025-04-17 21:28] LABS: Alanine Aminotransferase 6 U/L (0-41); Albumin Level 3.5 g/dL (3.5-5.2); Alkaline Phosphatase 88 U/L (40-130); Anion Gap 16.8 (5-19); Aspartate Amino Transferase 9 U/L (0-40); Blood Urea Nitrogen 16 mg/dL (8-23); Calcium 8.7 mg/dL (8.5-10.5); Carbon Dioxide 22 mmol/L (22-29); Chloride 100 mmol/L (98-107); Globulin 2.3 g/dL (1.3-4.6); Glucose 82 mg/dL (65-115); Magnesium 1.7 mg/dL (1.7-2.3); NT Pro B Type Natriuretic Pept 83 pg/mL (0-125); Osmolality Calculated 280 mOsm/kg (285-295); Potassium 3.8 mmol/L (3.5-5.1); Sodium 135 mmol/L (136-145); Total Protein 5.8 g/dL (6.6-8.7)
[2025-04-17] MEDS: HYDROmorphone 0.5 MG/0.5 ML INJ 1 MG IVP (21:34)
[2025-04-17 21:35] LABS: Lipase 841 U/L (13-60)
[2025-04-17] MEDS: ondansetron 2 mg/ML SDV 2 mL 4 MG IVP (23:11)
[2025-04-17 23:59] LABS: Add Urine Microscopic? YES; Glucose Urine UA Negative (Normal); Nitrate Urine Negative (Negative)
[2025-04-18 00:20] LABS: Specific Gravity, Urine 1.071 (1.005-1.030)
== END 2025-04-17 23:25 | disposition home or self-care (01) ==
PROVIDERS: Emergency Provider Student in an Organized Health Care Education/Training Program; PCP Family Medicine
DX: K86.1 Other chronic pancreatitis (principal); F17.210 Nicotine dependence, cigarettes, uncomplicated
CPT/HCPCS: 36415; 71045; 74177; 80053; 81001; 83605; 83690; 83735; 83880; 84100; 84484; 85025; 86140; 96361; 96372; 96374; 96375; 96376; 99285; J1171; J2405; J7030

== ENCOUNTER 2025-04-19 19:22 | Inpatient (IN) | payer MEDICARE, SELFPAY ==
[2025-04-19] VITALS (8 sets, daily range): BP systolic 126–160; BP diastolic 53–82; PULSE 72–85; RESP 15–19; TEMP 36.7–36.8; O2SAT 91–96; BMI 21.8
--- OUTSIDE RECORDS SUMMARY | 2025-04-19 19:27 | XMS_ITS | Clinical Summary ---
Author Organization [employer] Address [address] 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
--- OUTSIDE RECORDS SUMMARY | 2025-04-19 19:27 | XMS_ITS | Encounter Summary ---
Author Organization [facility] Address [address] [place] [address] Care Team Providers Care Sternman Name Role Phone Unavailable Primary Care Provider Unavailabl e Encounter Details Date Type Department Care Team (Latest Contact Info) Description 08/04/1999 Outpatient Historical [facility] [address] [place] [id number] Channing Humphries MD NO ADDRESS ON FILE Chronic rhinitis (Primary Dx) Social History Tobacco Use Types Packs/Day Years Used Date Smoking Tobacco: Never Assessed Sex and Gender Information Value Date Recorded Sex Assigned at Not on file 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
--- OUTSIDE RECORDS SUMMARY | 2025-04-19 19:27 | XMS_ITS | Encounter Summary ---
Author Organization [facility] [employer] [facility] Address [address] Attn: Epic [place] [address] Care Team Providers Care Custom Designer Name Role Phone Unavailable Primary Care Provider Unavailabl e Encounter Details Date Type Department Care Team (Late st Contact Info) Description 03/19/2000 Outpatient Historical Vel Lozada MD 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
--- NOTE | 2025-04-19 19:59 | ED_ITS ---
HPI - Abdominal Pain 2 General: Chief Complaint: Abdominal Pain Stated Complaint: ABD PAIN Time Seen by Provider: 04/19/25 19:55 Source: patient Mode of arrival: ambulatory Limitations: no limitations History of Present Illness: 74-year-old male had a history of pancre atitis in the past patient was seen here 2 days ago diagnosed with pancreatitis he states he has been taking oral Dilaudid and Zofran at home but continues to have severe pain states pain epigastric much worse with palpation states has not been able to eat he denies any vomiting since discharge he rates his pain a 9 out of 10 currently denies any fevers. Related Data Home Medications ?Medication ?Instructions ?Recorded ?Confirmed pediatric multivitamin no.30 1 tab PO DAILY 01/15/20 0 09/11/22 (Gummies Children Multivitamin chewable tablet) Previous Rx's ?Medication ?Instructions ?Recorded hydrocodone 5 mg-acetaminophen 325 1 tab PO Q8H PRN pa in #10 tabs 08/07/21 mg tablet metoclopramide HCl 10 mg tablet 10 mg PO Q6H PRN nause a and 09/15/22 vomiting #30 tabs metoprolol tartrate 25 mg tablet 12.5 mg (1/2 x 25 mg) PO DAILY #30 07/14/24 tabs ondansetron 4 mg disintegrating 4 mg PO Q6H PRN nausea and 10/26/24 tablet vomiting #14 tabs oxycodone-acetaminophen 7.5 mg-325 1 tab PO Q8H PRN pa in #14 tabs 10/26/24 mg tablet (Percocet) ondansetron 4 mg disintegrating 4 mg PO TID PRN nausea and 03/22/25 tablet vomiting #30 tabs hydromorphone 2 mg tablet 2 mg PO Q6H PRN pain #10 tab s 04/17/25 (Dilaudid) ondansetron 4 mg disintegrating 4 mg PO Q6H PRN nausea and 04/17/25 tablet vomiting #14 tabs Allergies Allergy/AdvReac Type Severity Reaction Status Date / Time Penicillins Allergy becomes Verified 04/17/25 19:31 overheated and sweating Review of Systems 2 GI: Reports: abdominal pain PFSH ED 2 PFSH: Medical History (Updated 04/19/25 @ 20:43 by Yobani Urrutia MD) Pancreatitis Smoker Alcohol abuse Bipolar 1 disorder Insomnia Surgical History History of cataract surgery No pertinent past surgical history Family History Other Cancer Psychiatric illness Denies family history of Diabetes Clotting disorder Dementia Chronic kidney disease (CKD) Social History Smoking and tobacco/nicotine status: current every day tobacco/nicotine user cigarettes Packs smoked per day: 3 Years cigarettes smoked: 45 Alcohol intake: current Alcohol intake frequency: 3 or more drinks per day Alcohol type: hard liquor Substance/Drug Use: never Household members: spouse Housing: House Marital status: Current occupation: On disability because of lower back pain and scoliosis Physical Exam 2 Const: COMMON NORMALS: no acute distress, patient oriented x3 and healthy appearing HENMT: COMMON NORMALS: normocephalic and atraumatic HEAD & SCALP: n ormocephalic and atraumatic Neck/C-Spine: COMMON NORMALS: full ROM and supple Chest: COMMONS NORMALS: normal inspection of the chest Resp: COMMON NORMALS: normal respiratory effort Cardio: COMMON NORMALS: regular rate, regular rhythm and No murmurs present (Cardio) RATE: regular rate RHYTHM: regular rhythm GI: COMMON NORMALS: Normal to inspection, nondistended, normoactive bowel sounds present, Soft to palpation and no masses PALPATION: Yes Soft to palpation OTHER: epigastric tenderness Extremity: COMMON NORMALS: normal to inspection and full ROM Neuro: COMMON NORMALS: patient oriented x3, moves all extremities and no focal motor deficits Psych: COMMON NORMALS: mental status grossly normal, Normal thought process present and cooperative THOUGHT PROCESS: Normal thought process present Skin: COMMON NORMALS: no rashes or lesions noted and no wounds GENERAL SKIN EXAM: no rashes or lesions noted Course 2 Vital Signs: Vital signs: Vital Signs Temperature 98.3 F 04/19/25 19:28 Pulse Rate 82 04/19/25 20:47 Respiratory Rate 19 H 04/19/25 20:47 Blood Pressure 135/53 04/19/25 20:47 Pulse Oximetry 94 04/19/25 20:47 Oxygen Delivery Me thod Room Air 04/19/25 19:28 MDM - Abdominal Pain Medical Decision Making Patient presents here with abdominal pain epigastric region differential includes cholecystitis pancreatitis small bowel obstruction. CT scan was performed 2 days ago did show a pancreatitis lab work here lipase is 1 up to 1250 at this time bilirubin liver enzymes are normal no signs of cholecystitis or small bowel obstruction did speak to hospitalist Dr. Bravo will admit at this time for hydration and pain control Medical Records I reviewed the patient's medical records. Lab Data I reviewed the patient's lab results. 04/19/25 19:55 04/19/25 19:55 Labs/Radiology: Laboratory Results WBC 15.58 10^3/uL (3.29-11.43) H 04/19/25 19:55 RBC 4.88 10^6/uL (3.85-5.65) 04/19/25 19:55 Hgb 15.50 g/dL (11.27-16.99) 04/19/25 19:55 Hct 46.4 % (37-53) 04/19/25 19:55 MCV 95.1 fl (82-101) 04/19/25 19:55 MCH 31.8 pg (27-33) 04/19/25 19:55 MCHC 33.4 g/dL (30-55) 04/19/25 19:55 RDW 14.2 % (12.1-15.1) 04/19/25 19:55 Plt Count 280 10^3/cmm (157-399) 04/19/25 19:55 MPV 9.2 fL (7.4-10.4) 04/19/25 19:55 Neut % (Auto) 76.0 % 04/19/25 19:55 Lymph % (Auto) 11.8 % 04/19/25 19:55 [place] % (Auto) 9.8 % 04/19/25 19:55 Eos % (Auto) 1.2 % 04/19/25 19:55 Baso % (Auto) 0.6 % 04/19/25 19:55 Neut # (Auto) 11.85 10^3/uL (1.8-7.7) H 04/19/25 19:55 Lymph # (Auto) 1.8 10^3/uL (0.8-4.8) 04/19/25 19:55 [place] # (Auto) 1.5 10^3/uL (0.2-0.9) H 04/19/25 19:55 Eos # (Auto) 0.2 10^3/uL (0.0-0.8) 04/19/25 19:55 Baso # (Auto) 0.1 10^3/uL (0.0-0.1) 04/19/25 19:55 Nucleated RBC % (auto) 0 % 04/19/25 19:55 Nucleated RBCs # 0.0 /100WBC 04/19/25 19:55 Sodium 137 mmol/L (136-145) 04/19/25 19:55 Potassium 3.7 mmol/L (3.5-5.1) 04/19/25 19:55 Chloride 97 mmol/L (98-107) L 04/19/25 19:55 Carbon Dioxide 27 mmol/L (22-29) 04/19/25 19:55 Anion Gap 16.7 (5-19) 04/19/25 19:55 BUN 14 mg/dL (8-23) 04/19/25 19:55 Creatinine 1.0 mg/dL (0.7-1.2) 04/19/25 19:55 GFR Calculation Not Reportable 04/19/25 19:55 Glucose 98 mg/dL (65-115) 04/19/25 19:55 Calculated Osmolality 284 mOsm/kg (285-295) L 04/19/25 19:55 Calcium 9.9 mg/dL (8.5-10.5) 04/19/25 19:55 Total Bilirubin 0.7 mg/dL (0.15-1.2) 04/19/25 19:55 AST 12 U/L (0-40) 04/19/25 19:55 ALT 7 U/L (0-41) 04/19/25 19:55 Alkaline Phosphatase 115 U/L (40-130) 04/19/25 19:55 Total Protein 8.0 g/dL (6.6-8.7) 04/19/25 19:55 Albumin 4.4 g/dL (3.5-5.2) 04/19/25 19:55 Globulin 3.6 g/dL (1.3-4.6) 04/19/25 19:55 Lipase 1250 U/L (13-60) H 04/19/25 19:55 No radiology studies performed this visit Discharge Plan Discharge Patient Disposition: Admitted As Inpatient Clinical Impression: Pancreatitis Condition: Stable Coding Level of Care Code ED Governor Assembler for Chey Howe
[2025-04-19 20:07] LABS: Hematocrit 46.4 % (37-53); Hemoglobin 15.50 g/dL (11.27-16.99); Mean Corpuscular HGB Conc 33.4 g/dL (30-55); Mean Corpuscular Hemoglobin 31.8 pg (27-33); Mean Corpuscular Volume 95.1 fl (82-101); Nucleated Red Blood Cells % 0 %; Platelet Count 280 10^3/cmm (157-399); Red Blood Count 4.88 10^6/uL (3.85-5.65); White Blood Count 15.58 10^3/uL (3.29-11.43)
[2025-04-19] MEDS: ondansetron 2 mg/ML SDV 2 mL 4 MG IVP (20:17)
[2025-04-19] MEDS: HYDROmorphone 0.5 MG/0.5 ML INJ 1 MG IVP (20:17)
[2025-04-19 20:25] LABS: Alanine Aminotransferase 7 U/L (0-41); Albumin Level 4.4 g/dL (3.5-5.2); Alkaline Phosphatase 115 U/L (40-130); Anion Gap 16.7 (5-19); Aspartate Amino Transferase 12 U/L (0-40); Blood Urea Nitrogen 14 mg/dL (8-23); Calcium 9.9 mg/dL (8.5-10.5); Carbon Dioxide 27 mmol/L (22-29); Chloride 97 mmol/L (98-107); Globulin 3.6 g/dL (1.3-4.6); Glucose 98 mg/dL (65-115); Osmolality Calculated 284 mOsm/kg (285-295); Potassium 3.7 mmol/L (3.5-5.1); Sodium 137 mmol/L (136-145); Total Protein 8.0 g/dL (6.6-8.7)
[2025-04-19 20:35] LABS: Lipase 1250 U/L (13-60)
--- NOTE | 2025-04-19 22:23 | P.HP_ITS ---
Providers/Chief Complaint 2 Admitting Physician: Tru Rich MD Primary Care Provider: Chantel Patel DO Chief Complaint: ABD PAIN History of Present Illness Channing Venegas is a 74 year old male with history of pancreatitis starting 2019. He has manic depression and self medicates with smoking cigarettes 2 packs/day and was drinking alcohol. He states he has quit since 2019. He also has had common bile duct stone and required a ERCP by Dr. Danis Mortensen at [facility] who removed the common bile duct stone and placed a stent in December 30, 2024. Patient states that stent is plastic. Patient states he was told that pancreatic head calcifications and duct calcifications were not adequately addressed and patient was referred initially to [place] and then to [facility] but the [facility] physician that he saw wanted him to quit smoking and patient states he smoked since age 5 until 74 and cannot quit smoking. He states that he can quit smoking but it would have adverse effects and he is not willing to be medicated for his bipolar because of that messed him up. Patient tells me that drinking is how he was able to sleep but also tells me that he does not drink alcohol anymore but wishes he could. Patient denies any street drug use including no weed. Patient is accompanied by his Alyssa. She was a clinical pharmacy manager. 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 He used to drink 1.75 L of [employer] alcohol with his in the period of a week and that got at its worst to one bottle every 3 to 4 days. Patient thinks that his pancreatitis was caused by obstruction and not by alcohol but tells me he has quit drinking alcohol. Patient tells me that Percocet onset for relief is 2 hours and only works for 45 minutes. He states that Dilaudid onset is 45 minutes but also only provides relief for 45 minutes. Patient was seen in the emergency department by Dr. Rollins 04/17/2025 for chronic pancreatitis lipase 800. He went home on pain meds but comes back with lipase 1250. Patient states this episode of pain is the worst he has had since the first time he had pancreatitis. Patient has been interested in having lithotripsy as opposed to open surgery but last specialist wanted him to quit smoking for 2 months before proceeding Review of Systems 2 Narrative: General No fevers chills he has felt hot and cold Cardiovascular no coronary artery disease he does have A-fib which she states he is not on anticoagulation he has had some leg edema GI positive or nausea he then received Dilaudid treatment ended up vomiting positive for BPH symptoms of nocturia has tried medications which did not work so voids frequently every couple of hours but only sleeps 3 to 4 hours at a time so nocturia is limited by not sleeping Neuro no seizures or strokes Hematologic no clots in legs or lungs Psych he was hospitalized once for manic behavior at age 22 states he committed himself Medications/Allergies Home Medications ?Medication ?Instructions ?Recorded ?Confirmed ?Last Taken ?Type pediatric multivitamin no.30 1 tab PO DAILY 01/15/20 0 09/11/22 09/14/21 History (Gummies Children Multivitamin chewable tablet) hydrocodone 5 mg-acetaminophen 325 1 tab PO Q8H PRN pa in #10 tabs 08/07/21 09/11/22 09/11/22 Rx mg tablet metoclopramide HCl 10 mg tablet 10 mg PO Q6H PRN nause a and 09/15/22 Unknown Rx vomiting #30 tabs metoprolol tartrate 25 mg tablet 12.5 mg (1/2 x 25 mg) PO DAILY #30 07/14/24 Unknown Rx tabs ondansetron 4 mg disintegrating 4 mg PO Q6H PRN nausea and 10/26/24 Unknown Rx tablet vomiting #14 tabs oxycodone-acetaminophen 7.5 mg-325 1 tab PO Q8H PRN pa in #14 tabs 10/26/24 Unknown Rx mg tablet (Percocet) ondansetron 4 mg disintegrating 4 mg PO TID PRN nausea and 03/22/25 Unknown Rx tablet vomiting #30 tabs hydromorphone 2 mg tablet 2 mg PO Q6H PRN pain #10 tab s 04/17/25 Unknown Rx (Dilaudid) ondansetron 4 mg disintegrating 4 mg PO Q6H PRN nausea and 04/17/25 Unknown Rx tablet vomiting #14 tabs Allergies Allergy/AdvReac Type Severity Reaction Status Date / Time Penicillins Allergy becomes Verified 04/17/25 19:31 overheated and sweating PFSH Acute 2 PFSH: Medical History (Updated 04/19/25 @ 20:43 by Yobani Urrutia MD) Pancreatitis Smoker Alcohol abuse Bipolar 1 disorder Insomnia Surgical History History of cataract surgery No pertinent past surgical history Family History Other Cancer Psychiatric illness Denies family history of Diabetes Clotting disorder Dementia Chronic kidney disease (CKD) Social History (Updated 04/19/25 @ 22:34 by Tru Rich MD) Smoking and tobacco/nicotine status: current every day tobacco/nicotine user cigarettes Packs smoked per day: 2 Years cigarettes smoked: 45 [ Other cigarette details: Started smoking age 5] Alcohol intake: former Year of sobriety/quit date alcohol: 2024 Former alcohol use details: Previously 1-2 x fifth a week of whiskey Substance/Drug Use: never Additional social history: Patient wants DNR status as discussed with Tru Rich MD on 04/19/2025 in the presence of his Alyssa Household members: spouse Housing: House Marital status: Current occupation: On disability because of lower back pain and scoliosis 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 Vitals/I&O/Wt Last Vital Signs Temp 98.3 F 04/19/25 19:28 Pulse 75 04/19/25 22:01 Resp 18 04/19/25 22:01 BP 154/82 04/19/25 22:01 Pulse Ox 96 04/19/25 22:01 O2 Del Method Room Air 04/19/25 19:28 Weight last 48 hrs Weight 68.901 kg Physical Exam 2 Narrative: General Well-developed thin male in no acute cardiopulmonary stress CV regular rate and rhythm Lungs clear to auscultation bilaterally Abdomen positive bowel tones soft mild epigastric and left and right upper quadrant tenderness patient has guarding no rebound Calves no tenderness cords pedal edema Mentation is alert and orient x 3 pleasant but highly pressured and detailed over describes his history does not listen and is highly opinionated. Data 04/19/25 19:55 04/19/25 19:55 CT Abd/Pel: Radiologist's impression: IMPRESSION 04/17/2025 CT abdomen pelvis with IV contrast: 1. Acute pancreatitis redemonstrated and similar to the prior examination. 2. No peripancreatic loculated fluid collection to suggest pseudocyst. 3. Common bile duct stent stable in position. COMMENTS: Consistent with the [place]'s Incidental Findings Committee white paper (J Am Rita Radiol 2018): Any incidental renal lesion less than 1 cm or classified as too small to characterize, or any incidental cystic renal lesion characterized as simple-appearing, is likely benign. No follow-up imaging is recommended for these lesions per consensus recommendations based on imaging criteria. A&P Assessment and plan 1. Acute on chronic pancreatitis: Patient with lipase 1250. Tobacco reported to be a cause of pancreatitis and he has been encouraged to stop by his ticket broker. I have encouraged him to take Creon which he states in the past has caused him nausea but he is willing to try. He will be n.p.o. except for ice chips and sips for now. He will be on IV fluids. When his pain is improved can advance to low-fat diet with Creon and see how he tolerates it. Will pursue MRCP in the morning. 2. Tobacco dependence: Will offer nicotine patch 21 mg daily 3. Bipolar 1 disorder: Recommend considering consultation with psychiatry. Patient has been reluctant with that. Please further discuss with him whether he is willing to consult with Dr. Blair to see if other options for treatment are available so they does not self-medicate with cigarettes which may be precipitating chronic recurrent pancreatitis PDMP PDMP Reviewed: Not Reviewed Attestations 2 Medical Necessity Statement*: Patient mid to the hospital with acute on chronic pancreatitis and will require greater than 2 midnights in hospital Coding Level of Care Code Acute Code for Chg Fwd Diagnoses Acute on chronic pancreatitis K85.90; K86.1 Tobacco dependence F17.200 Bipolar 1 disorder F31.9 Time Spent (min) 77
[2025-04-19] MEDS: dextrose 5%-ns + KCl 20 20 MEQ/1,000 ML BAG 125 MEQ IV (23:50)
[2025-04-20] MEDS: HYDROmorphone 0.5 MG/0.5 ML INJ IVP ×4 (03:54→17:24)
[2025-04-20 04:00] VITALS: BP 143/74; PULSE 68; RESP 16; TEMP 36.6; O2SAT 93
[2025-04-20 05:24] LABS: Hematocrit 39.8 % (37-53); Hemoglobin 13.30 g/dL (11.27-16.99); Mean Corpuscular HGB Conc 33.4 g/dL (30-55); Mean Corpuscular Hemoglobin 32.3 pg (27-33); Mean Corpuscular Volume 96.6 fl (82-101); Nucleated Red Blood Cells % 0 %; Platelet Count 241 10^3/cmm (157-399); Red Blood Count 4.12 10^6/uL (3.85-5.65); White Blood Count 11.90 10^3/uL (3.29-11.43)
[2025-04-20 05:58] LABS: Alanine Aminotransferase 14 U/L (0-41); Albumin Level 3.6 g/dL (3.5-5.2); Alkaline Phosphatase 130 U/L (40-130); Anion Gap 14.9 (5-19); Aspartate Amino Transferase 21 U/L (0-40); Blood Urea Nitrogen 13 mg/dL (8-23); Calcium 8.7 mg/dL (8.5-10.5); Carbon Dioxide 24 mmol/L (22-29); Chloride 102 mmol/L (98-107); Globulin 2.2 g/dL (1.3-4.6); Glucose 130 mg/dL (65-115); Magnesium 1.7 mg/dL (1.7-2.3); Osmolality Calculated 286 mOsm/kg (285-295); Potassium 3.9 mmol/L (3.5-5.1); Sodium 137 mmol/L (136-145); Total Protein 5.8 g/dL (6.6-8.7)
[2025-04-20 06:00] LABS: Lipase 906 U/L (13-60)
--- NOTE | 2025-04-20 07:00 | MRR_ITS ---
PROCEDURE INFORMATION: Exam: MR Abdomen Without Contrast Exam date and time: 04/20/2025 4:42 PM Age: 74 years old Clinical indication: Condition or disease; Pancreatic condition; Prior surgery; Surgery date: 6+ months; Surgery type: Bile duct stent; Recurrent pancreatitis and panc head calcification; Additional info: Recurretnt pancreatitis and panc head calcification, common bile duct plastic stent TECHNIQUE: Imaging protocol: Magnetic resonance imaging of the abdomen without contrast. COMPARISON: CT abdomen pelvis w con* [id number] 04/17/2025 8:39 PM FINDINGS: Lungs: Mild dependent atelectasis of the lung bases. Remaining visible chest is unremarkable. Liver: Liver is unremarkable. Gallbladder and biliary ducts: The gallbladder is unremarkable. There is a stable biliary stent. There is stable upstream biliary ductal dilation. The common hepatic duct measures 12 mm in diameter. There is stable narrowing of the common bile duct at the level of the edematous pancreatic head. Pancreas: There are stable findings of acute on chronic pancreatitis with enlarged and edematous pancreatic head with small amounts of peripancreatic fluid and fat stranding. There is stable upstream pancreatic atrophy with dilation of the pancreatic duct with beaded irregular appearance. There is transition to a narrowed pancreatic duct within the pancreatic head, series 601, image 27. Spleen: Spleen is unremarkable. Adrenal glands: The adrenal glands are unremarkable. Kidneys: The kidneys are unremarkable. Stomach and bowel: Visualized stomach and intestines are unremarkable. Intraperitoneal space: No free fluid. Vasculature: No abdominal aortic aneurysm. Lymph nodes: No enlarged nodes. Bones/joints: Unremarkable. No suspicious lesions. Soft tissues: The remaining soft tissue is unremarkable. MR/MR MRCP [id number] IMPRESSION: 1. Stable findings of acute on chronic pancreatitis with acute pancreatitis of the pancreatic head. 2. Stable narrowing of the distal common bile duct and distal pancreatic duct likely due to edema and chronic ductal strictures. 3. The enlarged inflamed pancreatic head is likely a pseudo mass due to acute on chronic pancreatitis, however, malignancy cannot be excluded by imaging. Follow-up CT abdomen without and with IV contrast with pancreatic mass protocol following resolution of acute pancreatitis is recommended.
[2025-04-20 08:00] VITALS: BP 138/67; PULSE 68; RESP 16; TEMP 36.8; O2SAT 93
[2025-04-20] MEDS: dextrose 5%-ns + KCl 20 20 MEQ/1,000 ML BAG 125 MEQ IV ×2 (08:06→16:06)
--- NOTE | 2025-04-20 09:59 | PC.CHAP ---
Pastoral Care Encounter/Spiritual Assessment Type of Contact [] Declined medical practice assistant visit [] Patient/Family/Request visit [] Outpatient visit [] Follow-up visit [] Physician referral [] Code/Alert [x] Routine visit [] Staff referral [] Actively dying [] Patient sleeping [] Family support [] [] Out of room [] Palliative care [] [] Receiving care in room [] Pre-surgical visit [] Trauma [] Long length of stay [] ICU visit [] Other: Relational/Emotional Strength [x] Patient feels connected with others/family/visitors/staff [] Distress [] Loneliness/isolation [] Abandonment Spirituality of Patient [x] Person of Krista [] Attends Rastafari of their Krista [x] Believes in Prayer [] Reads Bible or Latter-Day materials [] There are Spiritual issues to be addressed Management Advisor Interventions [x] Prayer [x] Active listening [x] Non-anxious presence [x] Spiritual/emotional support [] Crisis/trauma care [] Spiritual counseling [] Bereavement support [] Provided bereavement packet [] Provided Bible/devotional materials [] Provided toy/stuffed animal, coloring book to patient or family member [] Provided Communion [] Anointing/[place] [] Salvation [x] Completed spiritual assessment [] Other: Impact on Illness or Injury [] Angry [] Fearful [] Anxious [] Often cries [] Exhaustion [] Unable to work [] Unable to attend jehovah's witness [] Unable to walk/stand [] Unable to read [] Unable to drive [] Unable to eat/drink [] Unable to sleep [] Unable to be with family [] Patient intubated [] Other: Summary Time spent with patient 10 min
[2025-04-20 11:46] VITALS: BP 111/54; PULSE 58; RESP 16; TEMP 37; O2SAT 94
--- NOTE | 2025-04-20 15:30 | P.PN_ITS ---
Subjective 2 Subjective: Channing Venegas is a 74 year old male with history of pancreatitis starting 2019. He has manic depression and self medicates with smoking cigarettes 2 packs/day and was drinking alcohol. He states he has quit since 2019. He also has had common bile duct stone and required a ERCP by Dr. Danis Mortensen at [facility] who removed the common bile duct stone and placed a stent in December 30, 2024. Patient states that stent is plastic. Patient states he was told that pancreatic head calcifications and duct calcifications were not adequately addressed and patient was referred initially to [place] and then to [facility] but the [facility] physician that he saw wanted him to quit smoking and patient states he smoked since age 5 until 74 and cannot quit smoking. He states that he can quit smoking but it would have adverse effects and he is not willing to be medicated for his bipolar because of that messed him up. Patient tells me that drinking is how he was able to sleep but also tells me that he does not drink alcohol anymore but wishes he could. Patient denies any street drug use including no weed. Patient is accompanied by his Alyssa. 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 He used to drink 1.75 L of [employer] alcohol with his in the period of a week and that got at its worst to one bottle every 3 to 4 days. Patient thinks that his pancreatitis was caused by obstruction and not by alcohol but tells me he has quit drinking alcohol. Patient tells me that Percocet onset for relief is 2 hours and only works for 45 minutes. He states that Dilaudid onset is 45 minutes but also only provides relief for 45 minutes. Patient was seen in the emergency department by Dr. Rollins 04/17/2025 for chronic pancreatitis lipase 800. He went home on pain meds but comes back with lipase 1250. Patient states this episode of pain is the worst he has had since the first time he had pancreatitis. Patient has been interested in having lithotripsy as opposed to open surgery but last specialist wanted him to quit smoking for 2 months before proceeding. 04/20/25 patient resting in bed with int ermittent abdominal pain. Patient reports that taking 1 mg Dilaudid makes him feel dizzy/woozy and he prefers to have 0.5 mg more often as this takes about 45 minutes to work and only lasts for about 45 minutes. He does not want to take Creon. He does want to be able to take ice chips when possible but also has nausea and vomiting, especially if the dose of pain medicine is too much. He reports that he has had Dr. Mortensen place a stent and stones have been removed/dissolved. He has been hospitalized for pancreatitis before but this has been the worst pain he has ever experienced. Patient planning to have MRCP today and then we will see if he needs to be transferred out to [facility] for a higher level of care, especially if this indwelling stent is causing pancreatitis episodes. Vitals/I&O/Wt Last Vital Signs Temp 98.6 F 04/20/25 11:46 Pulse 58 L 04/20/25 11:46 Resp 16 04/20/25 11:46 BP 111/54 04/20/25 11:46 Pulse Ox 94 04/20/25 11:46 O2 Del Method Room Air 04/20/25 11:46 04/20/25 04/20/25 04/20/25 06:59 14:59 22:59 Intake Total 1000 / 1000 1000 / 1000 1000 / 2000 Output Total 300 / 300 1125 / 1125 Balance 700 / 700 -125 / -125 1000 / 875 Weight last 48 hrs Weight 69.91 kg Weight 69.91 kg Weight 68.901 kg Physical Exam 2 Narrative: AAO x 4 CV regular rate and rhythm Normal respirations Lungs clear to auscultation bilaterally Abdominal pain and tenderness Nausea and vomiting Normal range of motion No JVD or lymphadenopathy Data 04/20/25 04:32 04/20/25 04:32 A&P Assessment and plan 1. Acute on chronic pancreatitis: Patient with lipase 1250 > now 906 Tobacco reported to be a cause of pancreatitis and he has been encouraged to stop by his assistant women's tennis coach. Encouraged last night to take Creon, patient states he does not want to take this as it makes him nauseous. NPO except for ice chips and sips He will be on IV fluids. Once pain is improved he can advance to low-fat diet with Creon Still awaiting MRCP -initial schedule was at 10 AM then 3:15 PM Decision on transfer out to [facility] or another facility for higher level of care/procedure after MRCP result 2. Tobacco dependence: Will offer nicotine patch 21 mg daily Cessation education Reports he has smoked since he was 5 years old and has no plans of cessation 3. Bipolar 1 disorder: Recommend considering consultation with psychiatry. Patient has been reluctant with that. Please further discuss with him whether he is willing to consult with Dr. Blair to see if other options for treatment are available so they does not self-medicate with cigarettes which may be precipitating chronic recurrent pancreatitis PDMP PDMP Reviewed: Not Reviewed Attestations 2 Medical Necessity Statement*: Patient not expected to cross 2 midnights. Patient expected to possibly transfer out to another facility for a higher level of care or procedure 04/21/2025. Diagnoses Acute on chronic pancreatitis K85.90; K86.1 Tobacco dependence F17.200 Bipolar 1 disorder F31.9
[2025-04-20 16:00] VITALS: BP 115/58; PULSE 59; RESP 16; TEMP 36.8; O2SAT 94
--- NOTE | 2025-04-20 20:02 | PC.NURSE ---
AMA: Pt left AMA, ambulated while pushing in a wheelchair.
--- NOTE | 2025-04-20 20:30 | PC.NURSE ---
Addendum entered by Shani Ramesh LPN 04/20/25 20:40: physician notified Original Note: Patient left AMA patient was upset provider did not come to see him after MRI, wasn't happy with the care here at the hospital told nurse hospital policy was stupid and he shouldn't have to come back to ER should get his bed back and he was leaving and will be back tomorrow.
[2025-04-20 20:37] VITALS: BP 115/58; PULSE 59; RESP 16; TEMP 36.8; O2SAT 94
== END 2025-04-20 20:00 | disposition left against medical advice (07) | DRG 439 ==
LOC: ER 20:43 → MEDSURG 21:48
PROVIDERS: Admitting Provider Internal Medicine; Emergency Provider Emergency Medicine; PCP Family Medicine; Visit Provider Clinical Nurse Specialist Acute Care
DX: K85.90 Acute pancreatitis without necrosis or infection, unspecified (principal); F33.9 Major depressive disorder, recurrent, unspecified; K86.1 Other chronic pancreatitis; F10.11 Alcohol abuse, in remission; F17.210 Nicotine dependence, cigarettes, uncomplicated; Z96.89 Presence of other specified functional implants; Z66 Do not resuscitate; Z53.29 Procedure and treatment not carried out because of patient's decision for other reasons
CPT/HCPCS: 36415; 74181; 80053; 83690; 83735; 84100; 85025; 96374; 96375; 99285; J1171; J1885; J2405; J7030; J9999